=== PATIENT | female | born 1980 | race Caucasian/White ===

== ENCOUNTER → 2019-09-19 | Outpatient (CLI) | payer OTHER ==
--- NOTE | 2019-09-20 07:08 | CT ---
EXAMINATION TYPE: CT pelvis w con DATE OF EXAM: 09/19/2019 COMPARISON: None INDICATION: left inguinal hernia DLP: 1328 mGycm, Automated exposure control for dose reduction was used. CONTRAST: 100 mL of Isovue 300. Study performed with Oral Contrast TECHNIQUE: Axial images were obtained from above the diaphragm to the pubic rami in the axial plane a t 5 mm thick sections. Reconstructed images are reviewed on the computer in the coronal plane. FINDINGS: Limited CT sections are obtained through the lower abdomen. CT PELVIS: There is a large anterior abdominal wall hernia. This is in the midline and extends to the right. The anterior pelvic wall opening measures 7.3 cm. Multiple loops of contrast-filled small bowel loops ar e present without evidence of obstruction. This is not an inguinal hernia. Appendix: Normal as visualized. Urinary bladder: Normal. Genitourinary structures: Uterus and ovaries are unremarkable. Osseous structures: No suspicious lytic or sclerotic lesions. IMPRESSIONS: 1. Large central pelvic anterior abdominal wall hernia containing nonobstructed small bowel loops. 2. No inguinal hernia is present
== END | disposition home or self-care (01) ==
LOC: RADCTMAIN 14:55
PROVIDERS: ATTEND Surgery
DX: K43.9 Ventral hernia without obstruction or gangrene (principal); N81.4 Uterovaginal prolapse, unspecified
CPT/HCPCS: 72193; Q9967

== ENCOUNTER 2019-10-13 11:22 | Inpatient (IN) | payer OTHER ==
[2019-10-11 15:19] VITALS: BMI 44.7
[~2019-10-13 11:22] MED LIST: DEXAMETHASONE SOD PHOSPHATE 10 MG/ML 1 ML VIAL IV ONE; HEPARIN SODIUM,PORCINE 5,000 UNIT/ML 1 ML VIAL SQ ONE; HYDROmorphone 0.5 MG/0.5 ML SYRINGE IVP PRN; LACTATED RINGERS 1,000 ML IV SCH; LIDOCAINE 1% 20 ML VIAL (10MG/ML) FOR IV START INTRADERMA PRN; ONDANSETRON 4 MG/2 ML VIAL IVP ONE; SCOPOLAMINE 1.5MG/72HR PATCH TRANSDERM ONE; ceFAZolin 3 GM in SODIUM CHLORIDE 0.9% 100 ML IVPB ONE
[2019-10-13 12:52] LABS: HCT 41.1 % (34.0-46.0); HGB 13.9 gm/dL (11.4-16.0); MCH 28.8 pg (25.0-35.0); MCHC 33.9 g/dL (31.0-37.0); MCV 85.1 fL (80.0-100.0); Mean Platelet Volume 7.5; Platelet Count 320 k/uL (150-450); RBC 4.83 m/uL (3.80-5.40); RDW 12.7 % (11.5-15.5); WBC 8.9 k/uL (3.8-10.6)
[2019-10-13] MEDS ORDERED: MIDAZOLAM 2 MG/2 ML VIAL IV ONE (13:20)
[2019-10-13] MEDS ORDERED: fentaNYL (PF) 50 MCG/ML 2 ML AMP IV ONE (13:20)
--- NOTE | 2019-10-13 14:22 | P.GSHP ---
History of Present Illness H&P Date: 10/13/19 Chief Complaint: Incisional hernia Patient here today for elective repair large incisional hernia. She underwent in April. Following that developed a area of superficial dehiscence and subsequently after coughing felt a tearing sensation which resulted in a large bulge in the left lower abdomen. Mild pain at times. Increasing in size. No change in bowel habits. Recent CAT scan confirmed incisional hernia containing bowel loops. Past Medical History Past Medical History: GERD/Reflux History of Any Multi-Drug Resistant Organisms: None Reported Past Surgical History: Section, Cholecystectomy, Orthopedic Surgery Additional Past Surgical History / Comment(s): C SECTION X2 , ARTHROSCOPIC RIGHT KNEE , LEFT FINGER(POINTER) SURGERY Past Anesthesia/Blood Transfusion Reactions: Postoperative Nausea & Vomiting (PONV) Smoking Status: Current every day smoker - Past Family History Mother Family Medical History: Cancer Additional Family Medical History / Comment(s): CERVICAL CANCER Medications and Allergies Home Medications Medication Instructions Recorded Confirmed Type Escitalopram Oxalate [Lexapro] 10 mg PO DAILY 10/11/19 10/13/19 History Famotidine [Pepcid] 40 mg PO DAILY 10/11/19 10/13/19 History Ibuprofen 800 mg PO Q8H PRN 10/11/19 10/13/19 History Hydrocodone/Acetaminophen [[place] 1 tab PO Q6HR PRN 3 Days #10 tab 10/13/19 Rx 5-325] Allergies Allergy/AdvReac Type Severity Reaction Status Date / Time No Known Allergies Allergy Verified 10/13/19 12:18 Surgical - Exam Vital Signs Temp Pulse Resp BP Pulse Ox 96.7 F L 88 18 118/64 95 10/13/19 12:13 10/13/19 12:13 10/13/19 12:13 10/13/19 12:13 10/13/19 12:13 Physical exam: General: Well-developed, well-nourished HEENT: Normocephalic, sclerae nonicteric Abdomen: Nontender, nondistended, large partially incarcerated incisional hernia suprapubic slightly to the left of midline Extremities: No edema Neuro: Alert and oriented Results - Labs 10/13/19 12:35 Assessment and Plan (1) Incarcerated incisional hernia Narrative/Plan: Will proceed with repair incarcerated incisional hernia with mesh. Risks of bleeding, infection, recurrence, bladder and bowel injury, numbness, nerve injury were discussed with the patient. The patient understands and wishes to proceed. Current Visit: Yes Status: Acute Code(s): K43.0 - INCISIONAL HERNIA WITH OBSTRUCTION, WITHOUT GANGRENE SNOMED Code(s): 773153573
--- NOTE | 2019-10-13 14:33 | P.ANPRN ---
Procedure Note - Anesthesia - Nerve Block Performed Bilateral Transversus Abdominis Single Time Out Performed: Yes Date of Procedure: 10/13/19 Procedure Start Time: 13:24 Location of Patient: PreOp Indication: Acute Post-Operative Pain, Dx/Pain Location, Requested by Surgeon Sedation Type: Sedate with meaningful contact maintained Preparation: Sterile Prep, Sterile Dressing Catheter: None Needle Types: Pajunk Needle Gauge: 21 Ultrasound used to visualize needle placement: Yes Ultrasound used to observe medication spread: Yes Injectate: 0.5% Ropivacaine (see comment for volume) (20ml each side) Blood Aspirated: No Pain Paresthesia on Injection Noted: No Resistance on Injection: Normal Image Stored and Saved: Yes Events: Uneventful and Well Tolerated
[2019-10-13] MEDS ORDERED: GLYCOPYRROLATE 0.2 MG/ML 2 ML VIAL ONE (14:38)
[2019-10-13] MEDS ORDERED: MIDAZOLAM 2 MG/2 ML VIAL ONE (14:38)
[2019-10-13] MEDS ORDERED: PHENYLEPHRINE-0.9% NACL SYG 1 MG/10 ML SYRINGE ONE (14:38)
[2019-10-13] MEDS ORDERED: ROCURONIUM BROMIDE 10 MG/ML 10 ML VIAL IV ONE (14:38)
[2019-10-13] MEDS ORDERED: ONDANSETRON 4 MG/2 ML VIAL ONE (14:38)
[2019-10-13] MEDS ORDERED: LIDOCAINE 1% INJ 10MG/ML (20 ML MDV) ONE (14:38)
[2019-10-13] MEDS ORDERED: fentaNYL (PF) 50 MCG/ML 2 ML AMP ONE (14:38)
[2019-10-13] MEDS ORDERED: ROPIVACAINE 5 MG/ML 30 ML VIAL ONE (14:38)
[2019-10-13] MEDS ORDERED: SUCCINYLCHOLINE CHLORIDE 100 MG/5 ML SYR IV ONE (14:38)
[2019-10-13] MEDS ORDERED: LIDOCAINE 2%-EPI 1:100,000 20 ML VIAL ONE (14:38)
[2019-10-13] MEDS ORDERED: NEOSTIGMINE 1 MG/ML 10 ML VIAL ONE (14:38)
[2019-10-13] MEDS ORDERED: PROPOFOL 10 MG/ML 20 ML VIAL IV ONE (14:38)
[2019-10-13] MEDS ORDERED: LACTATED RINGERS 1,000 ML IV ONE (15:30)
[2019-10-13] MEDS ORDERED: NALOXONE 0.4 MG/ML 1 ML VIAL IV PRN (16:49)
[2019-10-13] MEDS ORDERED: HYDROmorphone 1 MG/ML 1 ML SYRINGE IVP PRN (16:49)
[2019-10-13] MEDS ORDERED: METOCLOPRAMIDE 5 MG/ML 2 ML VIAL IVP PRN (16:49)
[2019-10-13] MEDS ORDERED: ONDANSETRON 4 MG/2 ML VIAL IVP PRN (16:49)
--- NOTE | 2019-10-13 16:56 | P.OP ---
Date of Procedure: 10/13/19 Procedure(s) Performed: PREOPERATIVE DIAGNOSIS: Incarcerated incisional hernia POSTOPERATIVE DIAGNOSIS: Same PROCEDURE: Incarcerated incisional hernia with mesh, partial omentectomy SURGEON: Clary EBL: 50 Fernandez ANESTHESIA: Gen. COMPLICATIONS: None OPERATIVE PROCEDURE: Patient placed on the operating table in the supine position. Preoperative Munoz catheter was placed. Abdomen was prepped and draped in usual sterile fashion. A lower midline incision was made using the scalpel. Dissection through the subcutaneous tissues took place using electrocautery. A large hernia was identified. The hernia sac was carefully dissected down to the level of the fascia where it was excised. There was omentum present within the hernia sac that was excised. This was a large portion of omentum. The entirety of the previous rectus fascial opening was the hernia itself. I dissected the subfascial beneath the rectus fascia superiorly and inferiorly and laterally. Once I had adequate size the 17 cm x 13 cm Ventrio mesh was utilized. This was placed beneath the fascia and sutured in place using trans-fascial 0 Ethibond sutures. Prior to doing so the rectus muscle itself was reapproximated in the midline with a running 2-0 Vicryl suture. Once the mesh was secured the secure strap was also utilized ci rcumferentially. The fascia was then reapproximated horizontally using [id number] 0 Ethibond sutures. The area was irrigated. No bleeding was seen. A drain was placed anterior to the fascial closure exiting through the right lower quadrant. This was sutured to the skin using a 3-0 silk stitch. The subcutaneous tissues were closed using 3-0 Vicryl sutures. The skin was closed using guilherme. Sterile dressings were applied. DISPOSITION: Stable to recovery room
[2019-10-13] MEDS ORDERED: HYDROmorphone 1 MG/ML 1 ML SYRINGE IVP ONE ×4 (18:00→18:34)
[2019-10-13] MEDS: D5-0.45% NACL WITH KCL 20MEQ/L 1,000 ML IV SCH (19:10)
[2019-10-13] MEDS: HYDROcodone/APAP 5-325MG 1 EACH TAB PO PRN (21:32)
[2019-10-13] MEDS: DOCUSATE 100 MG CAP PO SCH (22:21)
[2019-10-14] MEDS: HEPARIN SODIUM,PORCINE 5,000 UNIT/ML 1 ML VIAL SQ SCH ×4 (00:01→23:57)
--- NOTE | 2019-10-14 00:35 | P.CONS ---
History of Present Illness - Reason for Consult Consult date: 10/13/19 post operative care, tachycardia Requesting physician: Avi Means - Chief Complaint incarcerated incisional hernia - History of Present Illness 39-year-old female with history of depression Comes in for surgical repair of incarcerated incisional hernia. Patient jim ated procedure well minutes was consult postoperatively for postoperative medical care and tachycardia Patient currently denies any chest pain or trouble breathing denies any dizziness or lightheadedness denies any history of tachycardia. She reports some lower abdominal pain at site of surgery however well controlled with Raymond's. She currently has a Munoz catheter in place with clear yellow urine. She did not pass bowel movement since surgery. Tolerating liquid diet. Denies any nausea vomiting. Denies any fevers or chills. Patient reports history of depression taking Lexapro. She reports that she feels overwhelmed taking care of 2 kids and her boyfriend's demented grandma. Review of Systems Pertinent positives as noted in HPI. All other systems were reviewed and are negative Past Medical History Past Medical History: GERD/Reflux History of Any Multi-Drug Resistant Organisms: None Reported Past Surgical History: Section, Cholecystectomy, Orthopedic Surgery Additional Past Surgical History / Comment(s): C SECTION X2 , ARTHROSCOPIC RIGHT KNEE , LEFT FINGER(POINTER) SURGERY Past Anesthesia/Blood Transfusion Reactions: Postoperative Nausea & Vomiting (PONV) Past Psychological History: Depression Smoking Status: Current every day smoker Past Alcohol Use History: Occasional Additional Past Alcohol Use History / Comment(s): STARTED SMOKING AT AGE 15 QUIT ON AND OFF SMOKES 1/2PPD Past Drug Use History: Marijuana Additional Drug Use History / Comment(s): occasional use of marijuana. - Past Family History Mother Family Medical History: Cancer Additional Family Medical History / Comment(s): CERVICAL CANCER Medications and Allergies Home Medications Medication Instructions Recorded Confirmed Type Escitalopram Oxalate [Lexapro] 10 mg PO DAILY 10/11/19 10/13/19 History Famotidine [Pepcid] 40 mg PO DAILY 10/11/19 10/13/19 History Ibuprofen 800 mg PO Q8H PRN 10/11/19 10/13/19 History Hydrocodone/Acetaminophen [[place] 1 tab PO Q6HR PRN 3 Days #10 tab 10/13/19 Rx 5-325] Allergies Allergy/AdvReac Type Severity Reaction Status Date / Time No Known Allergies Allergy Verified 10/13/19 12:18 Physical Exam Vitals: Vital Signs Temp Pulse Resp BP Pulse Ox 10/13/19 19:45 93 118/62 96 10/13/19 19:30 99 118/71 95 10/13/19 19:15 106 H 121/76 95 10/13/19 19:00 97.7 F 92 16 122/81 95 10/13/19 18:30 94 16 128/64 97 10/13/19 18:15 95 16 123/67 98 10/13/19 18:06 143/65 10/13/19 18:00 97 16 97 10/13/19 17:45 92 14 131/64 10/13/19 17:30 86 14 122/59 98 10/13/19 17:15 86 14 133/62 100 10/13/19 17:07 96.8 F L 88 16 133/61 99 10/13/19 15:15 86 16 119/55 100 10/13/19 13:35 94 16 108/51 96 10/13/19 12:13 96.7 F L 88 18 118/64 95 Intake and Output 10/13/19 10/13/19 10/13/19 06:59 14:59 22:59 Intake Total 1000 1000 Output Total 210 Balance 1000 790 Intake: IV 1000 1000 Output: Urine 110 Estimated Blood Loss 100 Other: Weight 120.7 kg 120.7 kg Constitutional: No acute distress, conversant, pleasant, obese Eyes: Anicteric sclerae, moist conjunctiva, no lid-lag Pupils equal round reactive to light ENMT: NC/AT Oropharynx clear, no erythema, exudates Neck: Supple, FROM, no masses, or JVD No carotid bruits No thyromegaly Lungs: Clear to auscultation Clear to percussion Normal respiratory effort, no accessory muscle use Cardiovascular: Heart regular in rate and rhythm, No murmurs, gallops, or rubs No peripheral edema Abdominal: Patient has abdominal binder in place postoperatively looks dry. Abdomen is soft. Unable to assess otherwise due to abdominal binder in place. Patient has OCHOA drain in place and Munoz catheter in place urine is unremarkable Skin: Normal temperature, tone, texture, turgor No induration No subcutaneous nodules No rash, lesions No ulcers Extremities: No digital cyanosis No clubbing Pedal pulses intact and symmetrical Radial pulses intact and symmetrical No calf tenderness Psychiatric: Alert and oriented to person, place and time Appropriate affect fair judgement Neuro Muscles Strength 5/5 in all 4 extremities Sensation to light touch grossly present throughout Cranial nerves II-XII grossly intact No focal sensory deficits Lymphatics: no palpable cervical or supraclavicular , or inguinal lymph nodes Results CBC & Chem 7: 10/13/19 12:35 Assessment and Plan Assessment: 39-year-old female with history of depression, presented for surgical repair of incarcerated incisional hernia tolerated procedure well medicine was consulted postoperatively for postoperative medical management and tachycardia Plan: Tachycardia Most likely reactive postoperatively and pain Check EKG I discussed with hydration Monitor closely Currently asymptomatic Incarcerated incisional hernia status post surgical repair postoperative day 0 Management per general surgery Pain control Depression resume home meds Obesity counseled for weight loss and lifestyle modification Nicotine dependence Counseled to quit smoking Nicotine replacement therapy offered Follow-up renal function and CBC in the morning Thank you for allowing us to participate in the care of this patient. Do not hesitate to contact us with questions. Someone can be reached from the [facility] hospitalist group at all hours of the day at [phone].
[2019-10-14] MEDS: HYDROcodone/APAP 5-325MG 1 EACH TAB PO PRN ×6 (01:11→22:24)
[2019-10-14] MEDS: D5-0.45% NACL WITH KCL 20MEQ/L 1,000 ML IV SCH ×3 (03:37→22:24)
[2019-10-14 07:19] LABS: Basophils # (A) 0.1 k/uL (0-0.2); Basophils % (A) 1 %; Eosinophils # (A) 0.1 k/uL (0-0.7); Eosinophils % (A) 1 %; HCT 39.5 % (34.0-46.0); HGB 12.9 gm/dL (11.4-16.0); Lymphocytes # (A) 0.9 k/uL (1.0-4.8); Lymphocytes % (A) 8 %; MCH 28.5 pg (25.0-35.0); MCHC 32.6 g/dL (31.0-37.0); MCV 87.5 fL (80.0-100.0); Mean Platelet Volume 7.5; Monocytes # (A) 0.5 k/uL (0-1.0); Monocytes % (A) 4 %; Neutrophils # (A) 10.7 k/uL (1.3-7.7); Neutrophils % (A) 87 %; Platelet Count 269 k/uL (150-450); RBC 4.52 m/uL (3.80-5.40); RDW 12.9 % (11.5-15.5); WBC 12.3 k/uL (3.8-10.6)
[2019-10-14 07:34] LABS: African American GFR (CKD) >90 (>60 ml/min/1.73 sqM); Anion Gap 6 mmol/L; Blood Urea Nitrogen 10 mg/dL (7-17); Carbon Dioxide 27 mmol/L (22-30); Chloride 101 mmol/L (98-107); Glucose 123 mg/dL (74-99); Non-African American GFR(CKD) >90 (>60 ml/min/1.73 sqM); Sodium 134 mmol/L (137-145)
[2019-10-14 07:47] LABS: Potassium 4.3 mmol/L (3.5-5.1)
--- NOTE | 2019-10-14 08:26 | P.PN ---
Subjective Chart was reviewed patient was seen and examined. Patient is postoperative day after hernia surgery. Postoperative course has been stable. Patient has no acute complications. It was noted that postoperatively she has been slightly tachycardic in the range 90-110. EKG showed sinus tachycardia. Patient has no significant medical history or cardiac history. She takes Lexapro met home. She has been on this medications continuously. She denies any usage of drugs or alcohol. Objective - Vital Signs Vital signs: Vital Signs Temp 97.8 F 10/14/19 04:39 Pulse 98 10/14/19 04:39 Resp 18 10/14/19 04:39 BP 122/80 10/14/19 04:39 Pulse Ox 97 10/14/19 04:39 Intake & Output 10/13/19 10/14/19 10/14/19 18:59 06:59 18:59 Intake Total 2000 2480 Output Total 210 2425 Balance 1790 55 Weight 120.7 kg 120.7 kg Intake: IV 2000 Intake, IV Titration 1000 Amount D5-0.45% NaCl with KCl 1000 20Meq/l 1,000 ml @ 100 mls/hr IV .Q10H [facility] Rx#: [id number] Oral 1480 Output: Drainage 50 Abdomen 50 Urine 110 2375 Estimated Blood Loss 100 Other: Voiding Method Indwelling Catheter - Exam Vital Signs: I have reviewed the vital signs. GENERAL: no apparent distress, cooperative Eyes: PERRL, extraoculry movements intact, clear conjunctiva Head: : Atraumatic external nose and ears, oropharyngeal mucosa is moist without lesions or exudates Neck: Symmetric, trachea midline, No thyromegaly, no masses or neck vain pulsation, no neck rigidity CVS: Tachycardic, regular, in the range of 90-100. S1 and S2 present did not detect any significant murmurs rubs or gallops. RESP: Unlabored respiratory effort. Clear to auscultation bilaterally. Abdomen: Abdominal brace present. Abdomen is soft and nontender Musculoskeletal: Extremities w/o deformity, No cyanosis or clubbing, no joint swelling Skin: Warm, Dry. No rashes or lesions Neuro: lathing supervisor II-XII grossly intact, motor strenght 5/5 i upper and lower extremities, no clonus, patellar DTRs 2+ and sympetrical Psych: Awake, Alert, & Oriented (AAO) x3 Appropriate mood and affect - Labs CBC & Chem 7: 10/14/19 06:57 10/14/19 06:57 Labs: Abnormal Lab Results - Last 24 Hours (Table) 10/14/19 10/14/19 Range/Units 06:57 06:57 WBC 12.3 H (3.8-10.6) k/uL Neutrophils # 10.7 H (1.3-7.7) k/uL Lymphocytes # 0.9 L (1.0-4.8) k/uL Sodium 134 L (137-145) mmol/L Glucose 123 H (74-99) mg/dL Calcium 8.0 L (8.4-10.2) mg/dL Assessment and Plan Plan: 1. Sinus tachycardia 2. Hernia repair postoperative day 2 3. Depression 4. Obesity This point of time patient is still within the timeframe postoperatively where sinus tachycardia may be consider appropriate due to catecholamine surge. She is mostly asymptomatic and does not have any known cardiac history. She denies any history of substance abuse or alcohol and her Lexapro has been continued hence we'll check the patient has any withdrawal symptoms. At this point of time I will continue to monitor patient but if her tachycardia persists we may consider to be getting out of appropriate range and will conduct further evaluation and treatment. I will add TSH check for tomorrow.
[2019-10-14] MEDS: FAMOTIDINE 20 MG TAB PO SCH (09:34)
[2019-10-14] MEDS: PANTOPRAZOLE 40 MG/10 ML VIAL IV SCH (09:34)
[2019-10-14] MEDS: DOCUSATE 100 MG CAP PO SCH ×2 (09:38→20:10)
[2019-10-14] MEDS: ESCITALOPRAM 10 MG TAB PO SCH (09:39)
--- NOTE | 2019-10-14 11:50 | P.PN ---
Progress Note - Text Progress Note Date: 10/14/19 Patient's resting comfortably in bed. She still has some complaints of incisional pain. She has not been out of bed yet. On exam her vital signs are stable. Her abdomen soft. Incision is clean dry tach. Status post repair of a large incisional hernia. Patient will remain in the hospital today. Discharge home Wednesday.
[2019-10-15] MEDS: HYDROcodone/APAP 5-325MG 1 EACH TAB PO PRN ×6 (02:13→22:53)
[2019-10-15] MEDS: D5-0.45% NACL WITH KCL 20MEQ/L 1,000 ML IV SCH ×2 (07:36→14:57)
[2019-10-15] MEDS: PANTOPRAZOLE 40 MG/10 ML VIAL IV SCH (07:39)
[2019-10-15] MEDS: ESCITALOPRAM 10 MG TAB PO SCH (07:40)
[2019-10-15] MEDS: FAMOTIDINE 20 MG TAB PO SCH (07:40)
[2019-10-15] MEDS: DOCUSATE 100 MG CAP PO SCH ×2 (07:40→20:06)
[2019-10-15] MEDS: HEPARIN SODIUM,PORCINE 5,000 UNIT/ML 1 ML VIAL SQ SCH ×3 (07:40→23:06)
[2019-10-15 09:27] LABS: African American GFR (CKD) >90 (>60 ml/min/1.73 sqM); Anion Gap 7 mmol/L; Blood Urea Nitrogen 9 mg/dL (7-17); Calcium 7.8 mg/dL (8.4-10.2); Carbon Dioxide 26 mmol/L (22-30); Chloride 102 mmol/L (98-107); Glucose 121 mg/dL (74-99); Magnesium 1.9 mg/dL (1.6-2.3); Non-African American GFR(CKD) >90 (>60 ml/min/1.73 sqM); Potassium 3.9 mmol/L (3.5-5.1); Sodium 135 mmol/L (137-145)
--- NOTE | 2019-10-15 11:32 | P.PN ---
Subjective C patient is doing better today. She has some mild pain and discomfort in the incision site. Otherwise no new complaints. She has been ambulatory tolerating that well. Her tachycardia much improved and as per chart her heart has been in 80s and 90s overnight. Objective - Vital Signs Vital signs: Vital Signs Temp 98.0 F 10/15/19 08:54 Pulse 94 10/15/19 08:54 Resp 20 10/15/19 08:54 BP 118/76 10/15/19 08:54 Pulse Ox 96 10/15/19 08:54 Intake & Output 10/14/19 10/15/19 10/15/19 18:59 06:59 18:59 Intake Total 1999 Output Total 1260 55 Balance -1260 1945 Intake: Intake, IV Titration 1000 Amount D5-0.45% NaCl with KCl 1000 20Meq/l 1,000 ml @ 100 mls/hr IV .Q10H [id number] Rx#: [id number] Oral 1000 Output: Drainage 60 55 Abdomen 60 55 Urine 1200 Other: Voiding Method Toilet # Voids 1 1 - Exam Vital Signs: I have reviewed the vital signs. GENERAL: no apparent distress, cooperative Eyes: PERRL, extraoculry movements intact, clear conjunctiva Head: : Atraumatic external nose and ears, oropharyngeal mucosa is moist without lesions or exudates Neck: Symmetric, trachea midline, No thyromegaly, no masses or neck vain pulsation, no neck rigidity CVS: , regular, in the range of 90-100. S1 and S2 present did not detect any significant murmurs rubs or gallops. RESP: Unlabored respiratory effort. Clear to auscultation bilaterally. Abdomen: Incision site has a bandage over no drainage or tenderness Musculoskeletal: Extremities w/o deformity, No cyanosis or clubbing, no joint swelling - Labs CBC & Chem 7: 10/14/19 06:57 10/15/19 08:33 Labs: Abnormal Lab Results - Last 24 Hours (Table) 10/15/19 Range/Units 08:33 Sodium 135 L (137-145) mmol/L Glucose 121 H (74-99) mg/dL Calcium 7.8 L (8.4-10.2) mg/dL Assessment and Plan Plan: 1. Sinus tachycardia 2. Hernia repair postoperative day 2 3. Depression 4. Obesity at this point patient's tachycardia has been improving. Heart rate has been in appropriate range. We will continue to monitor
[2019-10-16] MEDS: D5-0.45% NACL WITH KCL 20MEQ/L 1,000 ML IV SCH ×2 (00:04→16:13)
[2019-10-16] MEDS: HYDROcodone/APAP 5-325MG 1 EACH TAB PO PRN ×4 (04:17→16:18)
[2019-10-16] MEDS: PANTOPRAZOLE 40 MG/10 ML VIAL IV SCH (08:08)
[2019-10-16] MEDS: HEPARIN SODIUM,PORCINE 5,000 UNIT/ML 1 ML VIAL SQ SCH ×2 (08:14→16:21)
[2019-10-16] MEDS: ESCITALOPRAM 10 MG TAB PO SCH (08:15)
[2019-10-16] MEDS: DOCUSATE 100 MG CAP PO SCH (08:15)
[2019-10-16] MEDS: FAMOTIDINE 20 MG TAB PO SCH (08:17)
--- NOTE | 2019-10-16 10:59 | P.DS ---
<Katrina Schultz - Last Filed: 10/16/19 10:57> Providers Expected date of discharge: 10/16/19 Hospital Course: 39-year-old female who underwent incarcerated incisional hernia repair with mesh and partial omentectomy with Dr. Means on 10/13/2019. Patient's edema postoperatively without any immediate complications. Pain is controlled on oral medications. She is tolerating diet without nausea or vomiting. Vital signs have been stable. OCHOA drain to right lower quadrant with serosanguineous drainage. She is stable for discharge home today. Please see EMR for further hospital course details. Discharge Diagnosis 1. S/P repair of incarcerated incisional hernia with mesh and partial omentectomy Nurse practitioner note has been reviewed by physician. Signing provider agrees with the documented findings, assessment, and plan of care. Patient Condition at Discharge: Stable Plan - Discharge Summary Discharge Rx Participant: Yes New Discharge Prescriptions: New Hydrocodone/Acetaminophen [[place] 5-325] 1 tab PO Q6HR PRN 3 Days #10 tab PRN Reason: Pain Docusate [Colace] 100 mg PO BID #30 capsule No Action Ibuprofen 800 mg PO Q8H PRN PRN Reason: Pain Escitalopram Oxalate [Lexapro] 10 mg PO DAILY Famotidine [Pepcid] 40 mg PO DAILY Discharge Medication List Escitalopram Oxalate [Lexapro] 10 mg PO DAILY 10/11/19 [History] Famotidine [Pepcid] 40 mg PO DAILY 10/11/19 [History] Ibuprofen 800 mg PO Q8H PRN 10/11/19 [History] Hydrocodone/Acetaminophen [[place] 5-325] 1 tab PO Q6HR PRN 3 Days #10 tab 10/13/19 [Rx] Docusate [Colace] 100 mg PO BID #30 capsule 10/16/19 [Rx] Follow up Appointment(s)/Referral(s): Avi Means MD [Medical Doctor] - 10/19/19 10:00 am Activity/Diet/Wound Care/Special Instructions: No driving while taking [place]berg No lifting over 10 pounds You may shower. No soaking or tub baths Very light activity until you are reevaluated at your follow up appointment with your surgeon Keep a log of OCHOA drain output and bring with you to your follow up appointment Call your Dr with any fevers, increased pain not relieved with pain meds, increased redness or discolored drainage from your incision site ( on dressing) sudden increase or concerning drainage from your OCHOA drain or any concerns. Continue to use your incentive spirometery at home as well as wearing your abdominal binder. Last Newberg taken at <Avi Means - Last Filed: 10/16/19 16:38> Providers Date of admission: 10/14/19 14:58 Attending physician: Avi Means Consults: 10/13/19 16:49 Consult Physician Routine Consulting Provider: Brittney Arauz Consult Reason/Comments: Medical management Do you want consulting provider notified?: Yes Primary care physician: Kings Ricks - Discharge Diagnosis(es) (1) Incarcerated incisional hernia Current Visit: Yes Status: Acute Hospital Course: As above. Patient doing well. We'll discharge this evening. Follow-up later this week.
[2019-10-16 16:12] VITALS: BP 119/62; PULSE 90; RESP 20; TEMP 98.8
== END 2019-10-16 16:54 | disposition home or self-care (01) | DRG 354 ==
LOC: OR 11:22 → 6PED 18:22 → OR 22:27 → 6PED 22:46 → OBSVTOIN 10-14 14:58
PROVIDERS: ADMIT Surgery; ATTEND Surgery
DX: K43.0 Incisional hernia with obstruction, without gangrene (principal); Z68.42 Body mass index [BMI] 45.0-49.9, adult; E66.9 Obesity, unspecified; F17.210 Nicotine dependence, cigarettes, uncomplicated; F32.9 Major depressive disorder, single episode, unspecified; R00.0 Tachycardia, unspecified; Z71.6 Tobacco abuse counseling; K21.9 Gastro-esophageal reflux disease without esophagitis; Z79.899 Other long term (current) drug therapy; Z71.3 Dietary counseling and surveillance; Z90.49 Acquired absence of other specified parts of digestive tract; Z98.891 History of uterine scar from previous surgery; Z80.49 Family history of malignant neoplasm of other genital organs
CPT/HCPCS: 64488; 80048; 81025; 83735; 84443; 85025; 85027; 88302; 93005

== ENCOUNTER 2019-11-02 11:37 | Inpatient (IN) | payer OTHER ==
[2019-11-02] MEDS ORDERED: ACETAMINOPHEN TAB 325 MG TAB PO PRN (12:25)
[2019-11-02] MEDS ORDERED: NALOXONE 0.4 MG/ML 1 ML VIAL IV PRN (12:27)
[2019-11-02] MEDS ORDERED: HYDROmorphone 1 MG/ML 1 ML SYRINGE IVP PRN (12:27)
[2019-11-02 13:39] LABS: Glucose,Whole Blood 100 mg/dL (75-99)
[2019-11-02] MEDS ORDERED: LACTATED RINGERS 1,000 ML IV ONE ×2 (13:40→15:42)
[2019-11-02] MEDS ORDERED: LIDOCAINE 1% (10MG/ML) FOR IV START INTRADERMA ONE ×2 (13:41)
[2019-11-02] MEDS: ONDANSETRON 4 MG/2 ML VIAL IVP PRN ×2 (13:45→16:55)
[2019-11-02] MEDS: HEPARIN SODIUM,PORCINE 5,000 UNIT/ML 1 ML VIAL SQ SCH ×2 (13:45→15:50)
[2019-11-02] MEDS ORDERED: DEXAMETHASONE SOD PHOSPHATE 10 MG/ML 1 ML VIAL IV ONE (13:45)
[2019-11-02 13:59] LABS: Basophils % (A) 0 %; Eosinophils # (A) 0.3 k/uL (0-0.7); Eosinophils % (A) 2 %; HCT 37.5 % (34.0-46.0); HGB 12.6 gm/dL (11.4-16.0); Lymphocytes # (A) 0.6 k/uL (1.0-4.8); Lymphocytes % (A) 4 %; MCH 28.5 pg (25.0-35.0); MCHC 33.6 g/dL (31.0-37.0); MCV 84.8 fL (80.0-100.0); Mean Platelet Volume 7.4; Monocytes # (A) 0.3 k/uL (0-1.0); Monocytes % (A) 2 %; Neutrophils # (A) 13.4 k/uL (1.3-7.7); Neutrophils % (A) 91 %; Platelet Count 318 k/uL (150-450); RBC 4.42 m/uL (3.80-5.40); WBC 14.7 k/uL (3.8-10.6)
--- NOTE | 2019-11-02 14:00 | P.HPADDEND ---
H&P Addendum H&P Addendum Date: 11/02/19 Please refer to dictation of H&P from office visit earlier today.
[2019-11-02 14:10] LABS: ALT 23 U/L (4-34); AST 20 U/L (14-36); African American GFR (CKD) >90 (>60 ml/min/1.73 sqM); Albumin 3.1 g/dL (3.5-5.0); Alkaline Phosphatase 116 U/L (38-126); Anion Gap 8 mmol/L; Blood Urea Nitrogen 16 mg/dL (7-17); Calcium 8.1 mg/dL (8.4-10.2); Carbon Dioxide 28 mmol/L (22-30); Chloride 101 mmol/L (98-107); Glucose 99 mg/dL (74-99); Non-African American GFR(CKD) >90 (>60 ml/min/1.73 sqM); Potassium 3.6 mmol/L (3.5-5.1); Sodium 137 mmol/L (137-145); Total Bilirubin 0.3 mg/dL (0.2-1.3)
[2019-11-02 14:20] LABS: HCG,Qualitative Serum Not Detected
[2019-11-02] MEDS ORDERED: HYDROmorphone (PF) 1 MG/ML ONE (14:49)
[2019-11-02] MEDS ORDERED: MIDAZOLAM 2 MG/2 ML VIAL ONE (14:49)
[2019-11-02] MEDS ORDERED: PHENYLEPHRINE-0.9% NACL SYG 1 MG/10 ML SYRINGE ONE (14:49)
[2019-11-02] MEDS ORDERED: fentaNYL (PF) 50 MCG/ML 2 ML AMP ONE (14:49)
[2019-11-02] MEDS ORDERED: ROCURONIUM BROMIDE 10 MG/ML 5 ML VIAL IV ONE (14:49)
[2019-11-02] MEDS ORDERED: SUCCINYLCHOLINE CHLORIDE 100 MG/5 ML SYR IV ONE (14:49)
[2019-11-02] MEDS ORDERED: PROPOFOL 10 MG/ML 20 ML VIAL IV ONE (14:49)
[2019-11-02] MEDS ORDERED: KETAMINE 10 MG/ML 20 ML VIAL ONE (14:49)
[2019-11-02] MEDS ORDERED: GLYCOPYRROLATE 0.2 MG/ML 2 ML VIAL ONE (14:49)
[2019-11-02] MEDS ORDERED: NEOSTIGMINE 1 MG/ML 10 ML VIAL ONE (14:49)
[2019-11-02] MEDS ORDERED: LIDOCAINE 1% INJ 10MG/ML (20 ML MDV) ONE (14:49)
[2019-11-02] MEDS ORDERED: SODIUM CHLORIDE 0.9% 50 ML with ceFAZolin 2,000 MG IV ONE ×2 (15:15)
[2019-11-02] MEDS: SODIUM CHLORIDE 0.9% 1,000 ML IV SCH (15:50)
[2019-11-02] MEDS: KETOROLAC 30 MG/ML 1 ML VIAL IVP SCH (17:07)
--- NOTE | 2019-11-02 17:09 | P.OP ---
Date of Procedure: 11/02/19 Procedure(s) Performed: PREOPERATIVE DIAGNOSIS: Postoperative abdominal wall wound infection POSTOPERATIVE DIAGNOSIS: Same PROCEDURE: Incision and drainage postoperative lower midline incision with removal subfascial prosthetic mesh SURGEON: Clary EBL: Charlie Presley ANESTHESIA: Gen. COMPLICATIONS: None OPERATIVE PROCEDURE: Patient place never table in the supine position. The patient's drain and guilherme were all removed. The abdomen was prepped and draped sterilely. The lower midline incision was re-incised using a scalpel. Blunt dissection took place through the subcutaneous fat until the cavity was encountered just above the level of the fascia. A purulent collection was identified within the cavity. This was cultured and evacuated. The mesh that was placed beneath the fascia was visible through a few small defects in the thinned out fascia particularly in the right lower inferior location. The mesh certainly seem to be involved in the postoperative infection and required excision. The fascia had previously been closed horizontally using 0 Ethibond sutures. These were removed. The mesh was able to be removed and in doing so we removed the Ethibond transfer fascial sutures holding it in place. The mesh was only partially incorporated and was able to be removed relatively easily. The fascia was then reapproximated using [id number] #1 Vicryl sutures. The area beneath the fascia and above the fascia were copiously irrigated with saline. No bleeding or further purulence was seen. It should be noted that beneath the fascia we were able to visualize the rectus muscle. I did not see any bowel in that region nor any fistulous communications. A wound VAC was then placed with 2 pieces of large foam dressing placed on top of the fascial closure. The wound VAC was then connected. At the end of this procedure the sponge needle and ensure counts were correct. DISPOSITION: Stable to recovery room
[2019-11-02] MEDS: D5-0.45% NACL WITH KCL 20MEQ/L 1,000 ML IV SCH (17:40)
[2019-11-02] MEDS: HYDROmorphone 1 MG/ML 1 ML SYRINGE IVP PRN (17:58)
[2019-11-02] MEDS: DOCUSATE 100 MG CAP PO SCH (20:45)
[2019-11-02] MEDS: diphenhydrAMINE 25 MG CAP PO SCH (20:45)
[2019-11-03] MEDS: HEPARIN SODIUM,PORCINE 5,000 UNIT/ML 1 ML VIAL SQ SCH ×3 (00:11→15:38)
[2019-11-03] MEDS: KETOROLAC 30 MG/ML 1 ML VIAL IVP SCH ×4 (00:11→17:16)
[2019-11-03] MEDS: D5-0.45% NACL WITH KCL 20MEQ/L 1,000 ML IV SCH ×2 (03:59→14:20)
[2019-11-03] MEDS: SODIUM CHLORIDE 0.9% 1,000 ML IV SCH ×3 (04:04→23:34)
[2019-11-03 07:08] LABS: Basophils % (A) 0 %; Eosinophils % (A) 0 %; HCT 32.9 % (34.0-46.0); HGB 10.8 gm/dL (11.4-16.0); Lymphocytes % (A) 10 %; MCH 28.5 pg (25.0-35.0); MCHC 32.8 g/dL (31.0-37.0); MCV 86.7 fL (80.0-100.0); Mean Platelet Volume 7.4; Monocytes # (A) 0.4 k/uL (0-1.0); Monocytes % (A) 4 %; Neutrophils # (A) 8.6 k/uL (1.3-7.7); Neutrophils % (A) 85 %; Platelet Count 284 k/uL (150-450); RBC 3.79 m/uL (3.80-5.40); WBC 10.1 k/uL (3.8-10.6)
[2019-11-03 07:23] LABS: ALT 47 U/L (4-34); AST 36 U/L (14-36); African American GFR (CKD) >90 (>60 ml/min/1.73 sqM); Albumin 2.5 g/dL (3.5-5.0); Alkaline Phosphatase 130 U/L (38-126); Anion Gap 5 mmol/L; Blood Urea Nitrogen 17 mg/dL (7-17); Calcium 7.5 mg/dL (8.4-10.2); Carbon Dioxide 29 mmol/L (22-30); Chloride 102 mmol/L (98-107); Glucose 105 mg/dL (74-99); Non-African American GFR(CKD) >90 (>60 ml/min/1.73 sqM); Potassium 3.7 mmol/L (3.5-5.1); Sodium 136 mmol/L (137-145); Total Bilirubin 0.2 mg/dL (0.2-1.3); Total Protein 5.4 g/dL (6.3-8.2)
[2019-11-03] MEDS: DOCUSATE 100 MG CAP PO SCH ×2 (07:30→22:19)
[2019-11-03] MEDS: predniSONE 50 MG TAB PO SCH (07:30)
[2019-11-03] MEDS: diphenhydrAMINE 25 MG CAP PO SCH ×3 (07:30→22:19)
[2019-11-03] MEDS: ESCITALOPRAM 10 MG TAB PO SCH (07:30)
[2019-11-03] MEDS: HYDROcodone/APAP 5-325MG 1 EACH TAB PO PRN (07:35)
[2019-11-03] MEDS ORDERED: PANTOPRAZOLE 40 MG/10 ML VIAL IVP SCH (09:00)
[2019-11-03] MEDS ORDERED: FAMOTIDINE 20 MG TAB PO SCH (09:00)
--- NOTE | 2019-11-03 10:37 | P.CONS ---
History of Present Illness - Reason for Consult Consult date: 11/02/19 Consult for medical management Requesting physician: Avi Means - Chief Complaint Consulted for medical management - History of Present Illness The patient is a 39-year-old obese female with a past medical history of GERD and fairly recent incarcerated incisional hernia repair with mesh performed 10/13/19 that is admitted to the general surgery service after being seen in follow-up clinic earlier today by Dr. Means. The patient reported that should previously seen him a week ago and was doing well postoperatively, over the last several days the patient has had issues with fevers, on Wednesday she was also be febrile at home and proceeded to take an dose of ibuprofen, she later that evening began having itchiness of her hand and hives around her neck and felt like her throat was closing over. She was apparently admitted inpatient for ALLERGIC reaction possible angioedema and was given Benadryl systemic steroids and Pepcid, she reports that she was discharged on Wednesday and continues on oral prednisone. The patient was seen in follow-up today and was subsequently admitted due to suspected postoperative abdominal wall wound infection and is postop day #0 after having incision and drainage of the postoperative lower midline incision with removal of the subfascial prosthetic mesh. Patient reports to have had a bowel movement prior to surgery this morning, denies any gas, or bowel movement since. She has a wound VAC in place and reports that her pain is well- controlled. Review of Systems Pertinent positives per HPI all other review of systems are otherwise negative Past Medical History Past Medical History: GERD/Reflux Additional Past Medical History / Comment(s): HAD A POSSIBLE QUESTIONABLE ALLERGIC RXN ON MONDAY 10/30- HAD A FEVER, TOOK A MOTRIN, STARTED FEELING SOB. USED INHALER. THEN STARTED "FEELING LIKE THROAT CLOSED UP", ITCHING IN HANDS UNCONTROLLABLE, AND BROKE OUT IN RASH. WAS SENT TO [facility] FOR RX. NOT SURE WHAT CAUSED THE RXN. PT STATED "HAS HAD MOTRIN 800 MG BEFORE W/O PROBLEMS." History of Any Multi-Drug Resistant Organisms: None Reported Past Surgical History: Section, Cholecystectomy, Hernia Repair, Orthopedic Surgery Additional Past Surgical History / Comment(s): C SECTION X2 , ARTHROSCOPIC RIGHT KNEE , LEFT FINGER(POINTER) SURGERY. VENTRAL HERNIA REPAIR 10/13/19 STAYED UNTIL THE FOLLOWING WEDNESDAY AND HAS A OCHOA DRAIN AND BINDER. ON 10/30 STARTED HAVING MILKY DRAINAGE FROM OCHOA TUBE Past Anesthesia/Blood Transfusion Reactions: Postoperative Nausea & Vomiting (PONV) Past Psychological History: Depression Smoking Status: Current every day smoker Past Alcohol Use History: Occasional Additional Past Alcohol Use History / Comment(s): STARTED SMOKING AT AGE 15 QUIT ON AND OFF SMOKES 1/2PPD Past Drug Use History: Marijuana Additional Drug Use History / Comment(s): occasional use of marijuana. - Past Family History Mother Family Medical History: Cancer Additional Family Medical History / Comment(s): CERVICAL CANCER Medications and Allergies Home Medications Medication Instructions Recorded Confirmed Type Escitalopram Oxalate [Lexapro] 10 mg PO DAILY 10/11/19 11/02/19 History Famotidine [Pepcid] 40 mg PO DAILY 10/11/19 11/02/19 History Ibuprofen 800 mg PO Q8H PRN 10/11/19 11/02/19 History Albuterol Inhaler [Ventolin Hfa 1 - 2 puff INHALATION RT-Q4H PRN 11/02/19 11/02/19 History Inhaler] Docusate [Colace] 100 mg PO BID PRN 11/02/19 11/02/19 History EPINEPHrine (Auto Inject) [Epipen] 0.3 mg IM ONCE PRN 11/02/19 11/02/19 History Naproxen Sodium [Aleve] 220 mg PO Q8H PRN 11/02/19 11/02/19 History diphenhydrAMINE [Benadryl] 25 mg PO TID 11/02/19 11/02/19 History predniSONE 50 mg PO DAILY 11/02/19 11/02/19 History Allergies Allergy/AdvReac Type Severity Reaction Status Date / Time No Known Allergies Allergy Verified 11/02/19 13:42 Physical Exam Vitals: Vital Signs Temp Pulse Pulse Resp BP BP Pulse Ox 11/02/19 17:11 79 16 138/65 95 11/02/19 16:56 84 16 125/65 95 11/02/19 16:41 86 16 131/67 98 11/02/19 16:26 97.5 F L 81 12 131/67 94 L 11/02/19 13:15 96.9 F L 96 18 133/60 94 L Intake and Output 11/02/19 11/02/19 11/02/19 06:59 14:59 22:59 Intake Total 1000 900 Output Total 125 Balance 1000 775 Intake: IV 1000 900 Output: Urine 100 Estimated Blood Loss 25 Other: Weight 101.469 kg Constitutional: No acute distress, conversant, pleasant Eyes: Anicteric sclerae, moist conjunctiva, no lid-lag, PERRLA ENMT: NC/AT,Oropharynx clear, no erythema, exudates Neck:Supple, FROM, no masses, or JVD, No carotid bruits; No thyromegaly Lungs: Clear to auscultation, Clear to percussion, Normal respiratory effort, no accessory muscle use Cardiovascular: Heart regular in rate and rhythm, No murmurs, gallops, or rubs no peripheral edema Abdominal: Soft Nontender, nom distended, no guarding, no rebound or rigidity, hypoactive bowel sounds, wound VAC packed midline lower abdomen Skin: Normal temperature, tone, texture, turgor, No induration No subcutaneous nodules, No rash, lesions, No ulcers Extremities:No digital cyanosis No clubbing, Pedal pulses intact and symmetrical Radial pulses intact and symmetrical not assessed, No calf tenderness Psychiatric: Alert and oriented to person, place and time, Appropriate affect Intact judgement Neuro: Muscles Strength 5/5 in all 4 extremities, Sensation to light touch grossly present throughout, Cranial nerves II-XII grossly intact. No focal sensory deficits Results CBC & Chem 7: 11/02/19 13:47 11/02/19 13:47 Labs: Abnormal Lab Results - Last 24 Hours (Table) 11/02/19 11/02/19 11/02/19 Range/Units 13:38 13:47 13:47 WBC 14.7 H (3.8-10.6) k/uL Neutrophils # 13.4 H (1.3-7.7) k/uL Lymphocytes # 0.6 L (1.0-4.8) k/uL POC Glucose (mg/dL) 100 H (75-99) mg/dL Calcium 8.1 L (8.4-10.2) mg/dL Total Protein 6.0 L (6.3-8.2) g/dL Albumin 3.1 L (3.5-5.0) g/dL Assessment and Plan Assessment: Postop abdominal wall wound infection Leukocytosis Recent ALLERGIC reaction GERD History of incisional incarcerated hernia repair Plan: The patient is admitted to primary general surgery service after having postoperative abdominal wall infection after having surgery for incarcerated incisional hernia repair 10/13 with subsequent I&D and removal of subfascial prosthetic mesh today. The patient is noted to have a white count of 14.7, she is afebrile and hemodynamically stable. Per history she is had a recent ALLERGIC reaction and will be continued on systemic steroids with prednisone which will begin to wean starting tomorrow, continue Benadryl and famotidine as needed. Agree with continuing perioperative antibiotics with cefazolin. I will continue to follow her clinical course. For further questions. Doesn't hesitate to contact us on inpatient team
--- NOTE | 2019-11-03 10:42 | P.PN ---
Subjective Progress Note Date: 11/03/19 Patient seen and examined at bedside, has some abdominal pain rated as mild, reports to passing gas, denies any bowel movement, Munoz catheter in place. Has not been ambulatory. Patient afebrile leukocytosis resolving, denies any significant hives or rashes itchiness or difficulty breathing,. No acute events overnight. Objective - Vital Signs Vital signs: Vital Signs Temp 98 F 11/03/19 07:05 Pulse 68 11/03/19 07:05 Resp 18 11/03/19 07:05 BP 111/70 11/03/19 07:05 Pulse Ox 99 11/03/19 07:05 Intake & Output 11/02/19 11/03/19 11/03/19 18:59 06:59 18:59 Intake Total 1900 300 Output Total 125 500 Balance 1775 -200 Weight 101.469 kg Intake: IV 1900 Intake, IV Titration 300 Amount D5-0.45% NaCl with KCl 300 20Meq/l 1,000 ml @ 100 mls/hr IV .Q10H [facility] Rx#: [id number] Output: Urine 100 500 Estimated Blood Loss 25 Other: Voiding Method Indwelling Catheter - Exam Constitutional: No acute distress, conversant, pleasant Eyes: Anicteric sclerae, moist conjunctiva, no lid-lag, PERRLA ENMT: NC/AT,Oropharynx clear, no erythema, exudates Neck:Supple, FROM, no masses, or JVD, No carotid bruits; No thyromegaly Lungs: Clear to auscultation, Clear to percussion, Normal respiratory effort, no accessory muscle use Cardiovascular: Heart regular in rate and rhythm, No murmurs, gallops, or rubs no peripheral edema Abdominal: Soft Nontender, nom distended, no guarding, no rebound or rigidity, hypoactive bowel sounds, wound VAC packed midline lower abdomen Skin: Normal temperature, tone, texture, turgor, No induration No subcutaneous nodules, No rash, lesions, No ulcers Extremities:No digital cyanosis No clubbing, Pedal pulses intact and symmetrical Radial pulses intact and symmetrical not assessed, No calf tenderness Psychiatric: Alert and oriented to person, place and time, Appropriate affect Intact judgement Neuro: Muscles Strength 5/5 in all 4 extremities, Sensation to light touch grossly present throughout, Cranial nerves II-XII grossly intact. No focal sensory deficits - Labs CBC & Chem 7: 11/03/19 06:21 11/03/19 06:21 Labs: Abnormal Lab Results - Last 24 Hours (Table) 11/02/19 11/02/19 11/02/19 Range/Units 13:38 13:47 13:47 WBC 14.7 H (3.8-10.6) k/uL RBC (3.80-5.40) m/uL Hgb (11.4-16.0) gm/dL Hct (34.0-46.0) % Neutrophils # 13.4 H (1.3-7.7) k/uL Lymphocytes # 0.6 L (1.0-4.8) k/uL Sodium (137-145) mmol/L Glucose (74-99) mg/dL POC Glucose (mg/dL) 100 H (75-99) mg/dL Calcium 8.1 L (8.4-10.2) mg/dL ALT (4-34) U/L Alkaline Phosphatase (38-126) U/L Total Protein 6.0 L (6.3-8.2) g/dL Albumin 3.1 L (3.5-5.0) g/dL 11/03/19 11/03/19 Range/Units 06:21 06:21 WBC (3.8-10.6) k/uL RBC 3.79 L (3.80-5.40) m/uL Hgb 10.8 L (11.4-16.0) gm/dL Hct 32.9 L (34.0-46.0) % Neutrophils # 8.6 H (1.3-7.7) k/uL Lymphocytes # (1.0-4.8) k/uL Sodium 136 L (137-145) mmol/L Glucose 105 H (74-99) mg/dL POC Glucose (mg/dL) (75-99) mg/dL Calcium 7.5 L (8.4-10.2) mg/dL ALT 47 H (4-34) U/L Alkaline Phosphatase 130 H (38-126) U/L Total Protein 5.4 L (6.3-8.2) g/dL Albumin 2.5 L (3.5-5.0) g/dL Microbiology - Last 24 Hours (Table) 11/02/19 15:28 Gram Stain - Preliminary Abdomen Wound Culture - Preliminary 11/02/19 15:28 Anaerobic Culture - Preliminary Abdomen Assessment and Plan Assessment: Postop abdominal wall wound infection * Status post I&D and mesh removal * Continue cefazolin * Patient afebrile, leukocytosis resolving * Wound care/ wound VAC per primary team Leukocytosis * Resolved patient afebrile Recent ALLERGIC reaction * Continue prednisone until Wednesday * Benadryl when necessary with famotidine GERD * Appears stable History of incisional incarcerated hernia repair Disposition * Patient doing well passing gas * anticipated discharged to home in a couple of days
--- NOTE | 2019-11-03 11:59 | P.PN ---
Subjective Progress Note Date: 11/03/19 CHIEF COMPLAINT: Postoperative abdominal wall wound infection HISTORY OF PRESENT ILLNESS: 39-year-old female who is status post incision and drainage of postoperative lower midline incision with removal of subfascial prosthetic mesh. Postop day #1. Patient examined at the bedside. Patients pain is tolerable at this time. Wound VAC is intact. Vital signs are stable. She is afebrile. WBC 10.1. PHYSICAL EXAM: VITAL SIGNS: Reviewed. GENERAL: Well-developed in no acute distress. HEENT: No sclera icterus. Extraocular movements grossly intact. Moist buccal mucosa. Head is atraumatic, normocephalic. ABDOMEN: Soft. Nondistended. Wound VAC noted. NEUROLOGIC: Alert and oriented. Cranial nerves II through XII grossly intact. ASSESSMENT: 1. Postoperative abdominal wall wound infection, status post incision and drainage with removal of subfascial prosthetic mesh and wound VAC placement 2. Recent repair of incarcerated incisional hernia with mesh and partial omentectomy, 10/13/2019 PLAN: -Continue wound vac -Pain control -Diet as tolerated -Activity as tolerated -IS 10 times an hour -Continue antibiotics. Await culture results Nurse practitioner note has been reviewed by physician. Signing provider agrees with the documented findings, assessment, and plan of care. Objective - Vital Signs Vital signs: Vital Signs Temp 98 F 11/03/19 07:05 Pulse 68 11/03/19 07:05 Resp 18 11/03/19 07:05 BP 111/70 11/03/19 07:05 Pulse Ox 99 11/03/19 07:05 Intake & Output 11/02/19 11/03/19 11/03/19 18:59 06:59 18:59 Intake Total 1900 300 Output Total 125 500 Balance 1775 -200 Weight 101.469 kg Intake: IV 1900 Intake, IV Titration 300 Amount D5-0.45% NaCl with KCl 300 20Meq/l 1,000 ml @ 100 mls/hr IV .Q10H [facility] Rx#: [id number] Output: Urine 100 500 Estimated Blood Loss 25 Other: Voiding Method Indwelling Catheter - Labs CBC & Chem 7: 11/03/19 06:21 11/03/19 06:21 Labs: Abnormal Lab Results - Last 24 Hours (Table) 11/02/19 11/02/19 11/02/19 Range/Units 13:38 13:47 13:47 WBC 14.7 H (3.8-10.6) k/uL RBC (3.80-5.40) m/uL Hgb (11.4-16.0) gm/dL Hct (34.0-46.0) % Neutrophils # 13.4 H (1.3-7.7) k/uL Lymphocytes # 0.6 L (1.0-4.8) k/uL Sodium (137-145) mmol/L Glucose (74-99) mg/dL POC Glucose (mg/dL) 100 H (75-99) mg/dL Calcium 8.1 L (8.4-10.2) mg/dL ALT (4-34) U/L Alkaline Phosphatase (38-126) U/L Total Protein 6.0 L (6.3-8.2) g/dL Albumin 3.1 L (3.5-5.0) g/dL 11/03/19 11/03/19 Range/Units 06:21 06:21 WBC (3.8-10.6) k/uL RBC 3.79 L (3.80-5.40) m/uL Hgb 10.8 L (11.4-16.0) gm/dL Hct 32.9 L (34.0-46.0) % Neutrophils # 8.6 H (1.3-7.7) k/uL Lymphocytes # (1.0-4.8) k/uL Sodium 136 L (137-145) mmol/L Glucose 105 H (74-99) mg/dL POC Glucose (mg/dL) (75-99) mg/dL Calcium 7.5 L (8.4-10.2) mg/dL ALT 47 H (4-34) U/L Alkaline Phosphatase 130 H (38-126) U/L Total Protein 5.4 L (6.3-8.2) g/dL Albumin 2.5 L (3.5-5.0) g/dL Microbiology - Last 24 Hours (Table) 11/02/19 15:28 Gram Stain - Preliminary Abdomen Wound Culture - Preliminary 11/02/19 15:28 Anaerobic Culture - Preliminary Abdomen
[2019-11-03] MEDS: HYDROmorphone 1 MG/ML 1 ML SYRINGE IVP PRN ×3 (12:49→22:21)
--- NOTE | 2019-11-03 23:33 | P.CONS ---
History of Present Illness - Reason for Consult Consult date: 11/03/19 abdominal wound infection Requesting physician: Avi Means - Chief Complaint abd pain and purulent drainage in the catheter x few days - History of Present Illness Patient is a 39-year-old female who is status post incarcerated incisional hernia repair with mesh and partial omentectomy that was performed on October 13, 2019 patient did well postoperatively however over the last few days patient noticed to having more abdominal pain describing it more sharp to dull aching 69-year-old friend and noticed to have more purulent drainage from the drainage catheter patient did have some chills but denies high-grade fever patient was evaluated by the surgeon yesterday in the office with concern for possible mesh infection and the patient has been admitted to the hospital she was taken to the OR she is status post laparotomy and removal of the some now presented to hospital she was noticed to have a purulent fluid which has been cultured wound has been subsequently closed with wound VAC patient has been treated with cefazolin 2 g every 8 hour infectious disease was consulted for further recommendation about antibiotic therapy Review of Systems positive point has been mentioned in HPI rest of the systems are negative. Past Medical History Past Medical History: GERD/Reflux Additional Past Medical History / Comment(s): HAD A POSSIBLE QUESTIONABLE ALLERGIC RXN ON MONDAY 10/30- HAD A FEVER, TOOK A MOTRIN, STARTED FEELING SOB. USED INHALER. THEN STARTED "FEELING LIKE THROAT CLOSED UP", ITCHING IN HANDS UNCONTROLLABLE, AND BROKE OUT IN RASH. WAS SENT TO [facility] FOR RX. NOT SURE WHAT CAUSED THE RXN. PT STATED "HAS HAD MOTRIN 800 MG BEFORE W/O PROBLEMS." History of Any Multi-Drug Resistant Organisms: None Reported Past Surgical History: Section, Cholecystectomy, Hernia Repair, Orthopedic Surgery Additional Past Surgical History / Comment(s): C SECTION X2 , ARTHROSCOPIC RIGHT KNEE , LEFT FINGER(POINTER) SURGERY. VENTRAL HERNIA REPAIR 10/13/19 STAYED UNTIL THE FOLLOWING WEDNESDAY AND HAS A OCHOA DRAIN AND BINDER. ON 10/30 STARTED HAVING MILKY DRAINAGE FROM OCHOA TUBE Past Anesthesia/Blood Transfusion Reactions: Postoperative Nausea & Vomiting (P ONV) Past Psychological History: Depression Smoking Status: Current every day smoker Past Alcohol Use History: Occasional Additional Past Alcohol Use History / Comment(s): STARTED SMOKING AT AGE 15 QUIT ON AND OFF SMOKES 1/2PPD Past Drug Use History: Marijuana Additional Drug Use History / Comment(s): occasional use of marijuana. - Past Family History Mother Family Medical History: Cancer Additional Family Medical History / Comment(s): CERVICAL CANCER Medications and Allergies Home Medications Medication Instructions Recorded Confirmed Type Escitalopram Oxalate [Lexapro] 10 mg PO DAILY 10/11/19 11/02/19 History Famotidine [Pepcid] 40 mg PO DAILY 10/11/19 11/02/19 History Ibuprofen 800 mg PO Q8H PRN 10/11/19 11/02/19 History Albuterol Inhaler [Ventolin Hfa 1 - 2 puff INHALATION RT-Q4H PRN 11/02/1910/08 History Inhaler] Docusate [Colace] 100 mg PO BID PRN 11/02/19 11/02/19 History EPINEPHrine (Auto Inject) [Epipen] 0.3 mg IM ONCE PRN 11/02/19 11/02/19 History Naproxen Sodium [Aleve] 220 mg PO Q8H PRN 11/02/19 11/02/19 History diphenhydrAMINE [Benadryl] 25 mg PO TID 11/02/19 11/02/19 History predniSONE 50 mg PO DAILY 11/02/19 11/02/19 History Hydrocodone/Acetaminophen [[place] 1 tab PO Q6HR PRN #10 tab 11/03/19 Rx 5-325] Allergies Allergy/AdvReac Type Severity Reaction Status Date / Time No Known Allergies Allergy Verified 11/02/19 13:42 Physical Exam Vitals: Vital Signs Temp Pulse Pulse Resp BP BP Pulse Ox 11/03/19 07:05 98 F 68 18 111/70 99 11/03/19 00:49 97.6 F 69 18 114/76 98 11/02/19 19:30 85 18 103/64 96 11/02/19 19:17 77 11/02/19 19:15 73 18 91/53 94 L 11/02/19 19:00 78 18 114/70 94 L 11/02/19 18:45 81 18 112/69 96 11/02/19 18:30 79 98/57 11/02/19 18:15 76 110/74 11/02/19 18:00 79 101/58 11/02/19 17:45 82 104/63 11/02/19 17:30 98.4 F 87 16 107/69 97 11/02/19 17:11 79 16 138/65 95 11/02/19 16:56 84 16 125/65 95 11/02/19 16:41 86 16 131/67 98 11/02/19 16:26 97.5 F L 81 12 131/67 94 L 11/02/19 13:15 96.9 F L 96 18 133/60 94 L Intake and Output 11/02/19 11/03/19 11/03/19 22:59 06:59 14:59 Intake Total 1200 Output Total 125 500 Balance 1075 -500 Intake: IV 900 Intake, IV Titration 300 Amount D5-0.45% NaCl with KCl 300 20Meq/l 1,000 ml @ 100 mls/hr IV .Q10H [id number] Rx#: [id number] Output: Urine 100 500 Estimated Blood Loss 25 Other: Voiding Method Indwelling Catheter GENERAL DESCRIPTION: Middle-aged female lying in bed, no distress. No tachypnea or accessory muscle of respiration use. HEENT: Shows Pallor , no scleral icterus. Oral mucous membrane is dry. NECK: Trachea central, no thyromegaly. LUNGS: Unlabored breathing. Clear to auscultation anteriorly. No wheeze or crackle. HEART: S1, S2, regular rate and rhythm. ABDOMEN: Soft, no tenderness , abdominal wound is currently covered with a wound VAC EXTREMITIES: No edema of feet. SKIN: No rash, no masses palpable. NEUROLOGICAL: The patient is awake, alert, oriented x3, mood and affect normal Results CBC & Chem 7: 11/03/19 06:21 11/03/19 06:21 Labs: Abnormal Lab Results - Last 24 Hours (Table) 11/02/19 11/02/19 11/02/19 Range/Units 13:38 13:47 13:47 WBC 14.7 H (3.8-10.6) k/uL RBC (3.80-5.40) m/uL Hgb (11.4-16.0) gm/dL Hct (34.0-46.0) % Neutrophils # 13.4 H (1.3-7.7) k/uL Lymphocytes # 0.6 L (1.0-4.8) k/uL Sodium (137-145) mmol/L Glucose (74-99) mg/dL POC Glucose (mg/dL) 100 H (75-99) mg/dL Calcium 8.1 L (8.4-10.2) mg/dL ALT (4-34) U/L Alkaline Phosphatase (38-126) U/L Total Protein 6.0 L (6.3-8.2) g/dL Albumin 3.1 L (3.5-5.0) g/dL 11/03/19 11/03/19 Range/Units 06:21 06:21 WBC (3.8-10.6) k/uL RBC 3.79 L (3.80-5.40) m/uL Hgb 10.8 L (11.4-16.0) gm/dL Hct 32.9 L (34.0-46.0) % Neutrophils # 8.6 H (1.3-7.7) k/uL Lymphocytes # (1.0-4.8) k/uL Sodium 136 L (137-145) mmol/L Glucose 105 H (74-99) mg/dL POC Glucose (mg/dL) (75-99) mg/dL Calcium 7.5 L (8.4-10.2) mg/dL ALT 47 H (4-34) U/L Alkaline Phosphatase 130 H (38-126) U/L Total Protein 5.4 L (6.3-8.2) g/dL Albumin 2.5 L (3.5-5.0) g/dL Microbiology - Last 24 Hours (Table) 11/02/19 15:28 Gram Stain - Preliminary Abdomen Wound Culture - Preliminary 11/02/19 15:28 Anaerobic Culture - Preliminary Abdomen Assessment and Plan Assessment: Patient with recent incarcerated incisional hernia repair with mesh in this patient has been admitted to hospital with more cloudy drainage from which drainage catheter with elevated white count now with evidence of abdominal mesh infection which has been removed culture has been obtained which are currently pending however need to cover for the gram-positive skin lily suggestive once to the likely pathogen (1) Abdominal abscess Current Visit: Yes Status: Acute Code(s): [id number] - SNOMED Code(s): 37895440 (2) Post op infection Current Visit: Yes Status: Acute Code(s): T81.40XA - INFECTION FOLLOWING A PROCEDURE, UNSPECIFIED, INIT SNOMED Code(s): 55930370 Plan: 1-we will reevaluate wound tomorrow at the time of wound VAC changes 2-Cefazolin 2 g every 8 hour We will follow on clinical condition and cultures to further adjust medication if needed Thank you for this consultation we will follow the patient along with you Time with Patient: Greater than 30
[2019-11-04] MEDS: KETOROLAC 30 MG/ML 1 ML VIAL IVP SCH ×3 (00:58→11:13)
[2019-11-04] MEDS: HEPARIN SODIUM,PORCINE 5,000 UNIT/ML 1 ML VIAL SQ SCH ×4 (00:58→23:38)
[2019-11-04] MEDS: HYDROmorphone 1 MG/ML 1 ML SYRINGE IVP PRN ×6 (04:08→23:42)
[2019-11-04] MEDS: D5-0.45% NACL WITH KCL 20MEQ/L 1,000 ML IV SCH ×3 (07:08→19:25)
[2019-11-04] MEDS: SODIUM CHLORIDE 0.9% 1,000 ML IV SCH ×2 (07:09→09:18)
[2019-11-04] MEDS: DOCUSATE 100 MG CAP PO SCH ×2 (07:50→19:27)
[2019-11-04] MEDS: PANTOPRAZOLE 40 MG TABLET PO SCH (07:51)
[2019-11-04] MEDS: diphenhydrAMINE 25 MG CAP PO SCH ×3 (07:51→21:19)
[2019-11-04] MEDS: predniSONE 50 MG TAB PO SCH (07:52)
[2019-11-04] MEDS: ESCITALOPRAM 10 MG TAB PO SCH (07:52)
--- NOTE | 2019-11-04 09:06 | P.PN ---
Progress Note - Text Progress Note Date: 11/04/19 The patient's resting comfortably in bed. She still has complaints of incisional pain. Her wound VAC is in place. Abdomen soft. There is some minimal tenderness. Status post explantation of infected mesh. Patient continue local wound care with wound VAC. We dysphagia discharged home with 24-48 hours.
--- NOTE | 2019-11-04 14:29 | P.PN ---
Subjective Progress Note Date: 11/04/19 Patient seen and examined at bedside currently having her wound VAC changed by nursing reports her pain is tolerable. No acute events overnight patient afebrile, Objective - Vital Signs Vital signs: Vital Signs Temp 97.6 F 11/04/19 07:00 Pulse 83 11/04/19 07:00 Resp 17 11/04/19 07:00 BP 130/74 11/04/19 07:00 Pulse Ox 97 11/04/19 08:55 Intake & Output 11/03/19 11/04/19 11/04/19 18:59 06:59 18:59 Output Total 900 Balance -900 Output: Urine 900 Uretheral (Munoz) 500 Other: Voiding Method Indwelling Catheter Toilet Toilet # Voids 3 2 1 - Exam Constitutional: No acute distress, conversant, pleasant Eyes: Anicteric sclerae, moist conjunctiva, no lid-lag, PERRLA ENMT: NC/AT,Oropharynx clear, no erythema, exudates Neck:Supple, FROM, no masses, or JVD, No carotid bruits; No thyromegaly Lungs: Clear to auscultation, Clear to percussion, Normal respiratory effort, no accessory muscle use Cardiovascular: Heart regular in rate and rhythm, No murmurs, gallops, or rubs no peripheral edema Abdominal: Soft Nontender, nom distended, no guarding, no rebound or rigidity, hypoactive bowel sounds, wound VAC packed midline lower abdomen Skin: Normal temperature, tone, texture, turgor, No induration No subcutaneous nodules, No rash, lesions, No ulcers Extremities:No digital cyanosis No clubbing, Pedal pulses intact and sy mmetrical Radial pulses intact and symmetrical not assessed, No calf tenderness Psychiatric: Alert and oriented to person, place and time, Appropriate affect Intact judgement Neuro: Muscles Strength 5/5 in all 4 extremities, Sensation to light touch grossly present throughout, Cranial nerves II-XII grossly intact. No focal sensory deficits - Labs CBC & Chem 7: 11/03/19 06:21 11/03/19 06:21 Labs: Microbiology - Last 24 Hours (Table) 11/02/19 15:28 Gram Stain - Preliminary Abdomen Wound Culture - Preliminary Presumptive Staph aureus Assessment and Plan Assessment: Postop abdominal wall wound infection * Status post I&D and mesh removal * Continue cefazolin * Patient afebrile, leukocytosis resolving * Wound care/ wound VAC per primary team Leukocytosis * Resolved patient afebrile Recent ALLERGIC reaction * Continue prednisone until Wednesday * Benadryl when necessary with famotidine GERD * Appears stable History of incisional incarcerated hernia repair Disposition * Patient doing well passing gas * anticipated discharged to home in a couple of days
--- NOTE | 2019-11-04 15:04 | PN ---
PROGRESS NOTE DATE OF SERVICE: 11/04/2019 REASON FOR FOLLOWUP: Abdominal wound infection. INTERVAL HISTORY: The patient is currently afebrile. She has been breathing comfortably. The patient has been complaining of abdominal pain, but no worsening. No chest pain, shortness of breath or cough. No diarrhea. PHYSICAL EXAMINATION: Blood pressure 130/74 with a pulse of 83, temperature 97.6. She is 97% on room air. General description is a middle-aged female lying in bed in no distress. RESPIRATORY SYSTEM: Unlabored breathing, clear to auscultation anteriorly. HEART: S1, S2. Regular rate and rhythm. ABDOMEN: Soft. Wound base looks clean. No significant soft tissue surrounding redness. LABS: Hemoglobin is 10.8, white count 10.1. Wound culture presumptive Staph aureus. DIAGNOSTIC IMPRESSION AND PLAN: Patient with abdominal wound infection, status post surgical debridement and removal of infected mesh. Culture with presumptive Staph aureus likely MSSA. Patient is covered with cefazolin 2 grams q.8 hours to continue. Local wound care with wound VAC and monitor clinical course closely. MMODL / IJN: [id number] /
[2019-11-04] MEDS: HYDROcodone/APAP 5-325MG 1 EACH TAB PO PRN (21:19)
[2019-11-05] MEDS: SODIUM CHLORIDE 0.9% 1,000 ML IV SCH ×3 (02:22→22:44)
[2019-11-05] MEDS: HYDROmorphone 1 MG/ML 1 ML SYRINGE IVP PRN ×3 (04:29→19:27)
[2019-11-05] MEDS: D5-0.45% NACL WITH KCL 20MEQ/L 1,000 ML IV SCH ×2 (04:33→14:57)
[2019-11-05] MEDS: diphenhydrAMINE 25 MG CAP PO SCH ×3 (07:23→22:41)
[2019-11-05] MEDS: DOCUSATE 100 MG CAP PO SCH ×2 (07:24→19:27)
[2019-11-05] MEDS: PANTOPRAZOLE 40 MG TABLET PO SCH (07:24)
[2019-11-05] MEDS: HYDROcodone/APAP 5-325MG 1 EACH TAB PO PRN ×3 (07:24→22:41)
[2019-11-05] MEDS: HEPARIN SODIUM,PORCINE 5,000 UNIT/ML 1 ML VIAL SQ SCH ×2 (07:24→15:01)
[2019-11-05] MEDS: ESCITALOPRAM 10 MG TAB PO SCH (07:25)
[2019-11-05] MEDS: predniSONE 50 MG TAB PO SCH (07:25)
--- NOTE | 2019-11-05 09:26 | P.PN ---
Subjective Progress Note Date: 11/05/19 Patient doing well reports that she's been up and ambulatory, does report some soreness around her incision, denies any fevers or chills, reports to be passing gas feels like she wants to have a bowel movement this morning. Patient afebrile without leukocytosis Objective - Vital Signs Vital signs: Vital Signs Temp 97.7 F 11/05/19 07:00 Pulse 78 11/05/19 07:00 Resp 17 11/05/19 07:00 BP 126/73 11/05/19 07:00 Pulse Ox 96 11/05/19 07:00 Intake & Output 11/04/19 11/05/19 11/05/19 18:59 06:59 18:59 Intake Total 200 Balance 200 Intake: Intake, IV Titration 200 Amount D5-0.45% NaCl with KCl 200 20Meq/l 1,000 ml @ 100 mls/hr IV .Q10H NIKUNJ Rx#: [id number] Other: Voiding Method Toilet Toilet Toilet # Voids 1 1 1 - Exam Constitutional: No acute distress, conversant, pleasant Eyes: Anicteric sclerae, moist conjunctiva, no lid-lag, PERRLA ENMT: NC/AT,Oropharynx clear, no erythema, exudates Neck:Supple, FROM, no masses, or JVD, No carotid bruits; No thyromegaly Lungs: Clear to auscultation, Clear to percussion, Normal respiratory effort, no accessory muscle use Cardiovascular: Heart regular in rate and rhythm, No murmurs, gallops, or rubs no peripheral edema Abdominal: Soft Nontender, nom distended, no guarding, no rebound or rigidity, hypoactive bowel sounds, wound VAC packed midline lower abdomen Skin: Normal temperature, tone, texture, turgor, No induration No subcutaneous nodules, No rash, lesions, No ulcers Extremities:No digital cyanosis No clubbing, Pedal pulses intact and sy mmetrical Radial pulses intact and symmetrical not assessed, No calf tenderness Psychiatric: Alert and oriented to person, place and time, Appropriate affect Intact judgement Neuro: Muscles Strength 5/5 in all 4 extremities, Sensation to light touch grossly present throughout, Cranial nerves II-XII grossly intact. No focal sensory deficits - Labs CBC & Chem 7: 11/03/19 06:21 11/03/19 06:21 Labs: Microbiology - Last 24 Hours (Table) 11/02/19 15:28 Anaerobic Culture - Preliminary Abdomen 11/02/19 15:28 Gram Stain - Final Abdomen Wound Culture - Final Staphylococcus aureus Assessment and Plan Assessment: Postop abdominal wall wound infection * Status post I&D and mesh removal * Continue cefazolin * Patient afebrile, leukocytosis resolving * Wound care/ wound VAC per primary team Leukocytosis * Resolved patient afebrile Recent ALLERGIC reaction * Prednisone discontinued * Benadryl when necessary with famotidine GERD * Appears stable History of incisional incarcerated hernia repair Disposition * Patient doing well passing gas * anticipated discharged to home in a couple of days
--- NOTE | 2019-11-05 10:20 | P.PN ---
Progress Note - Text Progress Note Date: 11/05/19 The patient is resting in bed. She states she has some knee pain associated with the wound VAC. On exam her vital signs are stable. Her abdomen soft. Wound VAC is in position. There is no evidence of any significant cellulitis of the abdominal wall. Status post removal of infected mesh. Patient will continue to receive IV antibiotic. We discussed the discharge home tomorrow.
--- NOTE | 2019-11-05 18:30 | PN ---
PROGRESS NOTE DATE OF SERVICE: 11/05/2019 REASON FOR FOLLOWUP: Abdominal wound infection. INTERVAL HISTORY: The patient is currently afebrile. She has been breathing comfortably. The patient denies having any chest pain or any cough. Abdominal pain is currently controlled. No nausea, no vomiting and no diarrhea. PHYSICAL EXAMINATION: Blood pressure is 152/82 with pulse 73. Temperature of 97.6. She is 96% on room air. General description is a middle-aged female lying in bed in no distress. Respiratory system: Unlabored breathing, clear to auscultation anteriorly. Heart S1, S2 regular rate and rhythm. ABDOMEN: Soft. The wound is currently covered with wound VAC. Extremities: No edema of the feet. LAB: No new labs have been obtained today. Wound culture with MSSA. DIAGNOSTIC IMPRESSION AND PLAN: Patient with MSSA abdominal wound infection in this patient who is status post laparotomy and removal of infected mesh. The patient overall clinical improvement to finish with therapy with oral Keflex; 500 mg p.o. every 6 hours for 2 weeks. Local wound care with wound VAC and close outpatient followup. MMODL / IJN: [id number] /
[2019-11-06] MEDS: HEPARIN SODIUM,PORCINE 5,000 UNIT/ML 1 ML VIAL SQ SCH ×3 (00:43→15:38)
[2019-11-06] MEDS: D5-0.45% NACL WITH KCL 20MEQ/L 1,000 ML IV SCH ×2 (02:17→13:42)
[2019-11-06] MEDS: HYDROmorphone 1 MG/ML 1 ML SYRINGE IVP PRN (05:02)
[2019-11-06 07:43] VITALS: RESP 17
[2019-11-06] MEDS: HYDROcodone/APAP 5-325MG 1 EACH TAB PO PRN ×2 (08:12→13:07)
[2019-11-06] MEDS: DOCUSATE 100 MG CAP PO SCH (08:13)
[2019-11-06] MEDS: diphenhydrAMINE 25 MG CAP PO SCH ×2 (08:13→15:38)
[2019-11-06] MEDS: PANTOPRAZOLE 40 MG TABLET PO SCH (08:13)
[2019-11-06] MEDS: ESCITALOPRAM 10 MG TAB PO SCH (08:14)
[2019-11-06] MEDS: SODIUM CHLORIDE 0.9% 1,000 ML IV SCH ×2 (08:21→15:39)
--- NOTE | 2019-11-06 10:38 | P.PN ---
<Katrina Schultz - Last Filed: 11/06/19 10:37> Subjective Progress Note Date: 11/06/19 CHIEF COMPLAINT: Postoperative abdominal wall wound infection HISTORY OF PRESENT ILLNESS: 39-year-old female who is status post incision and drainage of postoperative lower midline incision with removal of subfascial prosthetic mesh. Patient examined at the bedside. Patients pain is tolerable at this time. Wound VAC is intact. Vital signs are stable. She is afebrile. PHYSICAL EXAM: VITAL SIGNS: Reviewed. GENERAL: Well-developed in no acute distress. HEENT: No sclera icterus. Extraocular movements grossly intact. Moist buccal mucosa. Head is atraumatic, normocephalic. ABDOMEN: Soft. Nondistended. Wound VAC noted. NEUROLOGIC: Alert and oriented. Cranial nerves II through XII grossly intact. ASSESSMENT: 1. Postoperative abdominal wall wound infection, status post incision and drainage with removal of subfascial prosthetic mesh and wound VAC placement 2. Recent repair of incarcerated incisional hernia with mesh and partial omentectomy, 10/13/2019 PLAN: Case discussed with pillowcase turner. Currently awaiting approval for wound vac at home. Will DC when approval received. Patient to be discharged on oral antibiotics per Dr. Yusuf Nurse practitioner note has been reviewed by physician. Signing provider agrees with the documented findings, assessment, and plan of care. Objective - Vital Signs Vital signs: Vital Signs Temp 97.7 F 11/06/19 07:00 Pulse 77 11/06/19 07:00 Resp 17 11/06/19 07:00 BP 144/80 11/06/19 07:00 Pulse Ox 96 11/06/19 07:00 Intake & Output 11/05/19 11/06/19 11/06/19 18:59 06:59 18:59 Intake Total 240 Balance 240 Intake: Oral 240 Other: Voiding Method Toilet Toilet # Voids 1 1 - Labs CBC & Chem 7: 11/03/19 06:21 11/03/19 06:21 <Avi Means - Last Filed: 11/06/19 14:59> Objective - Vital Signs Vital signs: Vital Signs Temp 98.2 F 11/06/19 14:29 Pulse 93 11/06/19 14:29 Resp 17 11/06/19 14:29 BP 130/68 11/06/19 14:29 Pulse Ox 95 11/06/19 14:29 Intake & Output 11/05/19 11/06/19 11/06/19 18:59 06:59 18:59 Intake Total 1240 Balance 1240 Intake: Intake, IV Titration 600 Amount D5-0.45% NaCl with KCl 600 20Meq/l 1,000 ml @ 100 mls/hr IV .Q10H NIKUNJ Rx#: [id number] Oral 640 Other: Voiding Method Toilet Toilet # Voids 1 1 - Labs CBC & Chem 7: 11/03/19 06:21 11/03/19 06:21
--- NOTE | 2019-11-06 11:52 | P.DS ---
<Katrina Schultz - Last Filed: 11/06/19 11:49> Providers Expected date of discharge: 11/06/19 Hospital Course: 39-year-old female who is status post incision and drainage of postoperative lower midline incision with removal of subfascial prosthetic mesh. Patient had wound vac applied postoperatively. Cultures positive for MSSA. She was evaluated by infectious disease during hospitalization. She is stable for discharge home today with wound vac and oral antibiotics per ID recommendations. Please see EMR for further hospital course details. Discharge Diagnosis: 1. Postoperative abdominal wall wound infection, status post incision and drainage with removal of subfascial prosthetic mesh and wound VAC placement 2. Recent repair of incarcerated incisional hernia with mesh and partial omentectomy, 10/13/2019 Nurse practitioner note has been reviewed by physician. Signing provider agrees with the documented findings, assessment, and plan of care. Patient Condition at Discharge: Stable Plan - Discharge Summary New Discharge Prescriptions: New Hydrocodone/Acetaminophen [[place] 5-325] 1 tab PO Q6HR PRN #10 tab PRN Reason: Pain Cephalexin [Keflex] 500 mg PO Q6HR 14 Days #56 cap Continue Escitalopram Oxalate [Lexapro] 10 mg PO DAILY Famotidine [Pepcid] 40 mg PO DAILY Albuterol Inhaler [Ventolin Hfa Inhaler] 1 - 2 puff INHALATION RT-Q4H PRN PRN Reason: Shortness Of Breath diphenhydrAMINE [Benadryl] 25 mg PO TID Docusate [Colace] 100 mg PO BID PRN PRN Reason: Constipation EPINEPHrine (Auto Inject) [Epipen] 0.3 mg IM ONCE PRN PRN Reason: Anaphylaxis predniSONE 50 mg PO DAILY Discontinued Ibuprofen 800 mg PO Q8H PRN PRN Reason: Pain Naproxen Sodium [Aleve] 220 mg PO Q8H PRN PRN Reason: Pain Discharge Medication List Escitalopram Oxalate [Lexapro] 10 mg PO DAILY 10/11/19 [History] Famotidine [Pepcid] 40 mg PO DAILY 10/11/19 [History] Albuterol Inhaler [Ventolin Hfa Inhaler] 1 - 2 puff INHALATION RT-Q4H PRN 11/02/19 [History] Docusate [Colace] 100 mg PO BID PRN 11/02/19 [History] EPINEPHrine (Auto Inject) [Epipen] 0.3 mg IM ONCE PRN 11/02/19 [History] diphenhydrAMINE [Benadryl] 25 mg PO TID 11/02/19 [History] predniSONE 50 mg PO DAILY 11/02/19 [History] Hydrocodone/Acetaminophen [[place] 5-325] 1 tab PO Q6HR PRN #10 tab 11/03/19 [Rx] Cephalexin [Keflex] 500 mg PO Q6HR 14 Days #56 cap 11/06/19 [Rx] Follow up Appointment(s)/Referral(s): Avi Means MD [Medical Doctor] - 1 Week Amie Yusuf MD [STAFF PHYSICIAN] - 1 Week Patient Instructions/Handouts: Negative Pressure Wound Therapy (DC) <Avi Means - Last Filed: 11/06/19 14:59> Providers Date of admission: 11/02/19 11:41 Attending physician: Avi Means Consults: 11/02/19 16:50 Consult Physician Routine Consulting Provider: Brittney Arauz Consult Reason/Comments: med mgmt Do you want consulting provider notified?: Yes Consult Physician Routine Consulting Provider: Amie Yusuf Consult Reason/Comments: Abdominal wall infection Do you want consulting provider notified?: Yes Primary care physician: Stated None Hospital Course: As above. Patient doing better. Cultures noted. Home on oral antibiotics with wound VAC therapy. Follow-up in 1 week.
--- NOTE | 2019-11-06 12:22 | PN ---
PROGRESS NOTE DATE OF SERVICE: 11/06/2019 REASON FOR FOLLOWUP: Abdominal wound infection MSSA. INTERVAL HISTORY: The patient is currently afebrile. The patient has been breathing comfortably. She is complaining of some abdominal pain, but no worsening. No chest pain, shortness of breath or cough. No diarrhea. PHYSICAL EXAMINATION: Her blood pressure is 144/80 with a pulse of 77, temperature of 97.7. She is 96% on room air. General description is a middle-aged female lying in bed in no distress. RESPIRATORY SYSTEM: Unlabored breathing, clear to auscultation anteriorly. HEART: S1, S2. Regular rate and rhythm. ABDOMEN: Soft, no tenderness. Wound is currently covered with wound VAC. LABS: No new labs have been obtained. White count was normal on 11/03. Blood cultures not done. Local wound culture with MSSA. DIAGNOSTIC IMPRESSION AND PLAN: Patient with abdominal wound infection. Culture has been positive for MSSA. The patient is covered cefazolin, finish therapy with oral Keflex 500 mg p.o. q.6 hours for 10 days. Local care with wound VAC and close [facility]. MMODL / IJN: [id number] /
[2019-11-06 14:29] VITALS: BP 130/68; PULSE 93; TEMP 98.2
--- NOTE | 2019-11-09 08:26 | CDI ---
Documentation Clarification Form Date: 11/09/19 From: Betzy Lazo Phone: If you have a question about this query, please contact Tori Dejesus, Repeat Chief at [phone] between 8am and 5pm. Admit Date: 11/02/19 Discharge Date:11/06/19 Patient Name: Leslie Phillips Visit Number: [id number] ATTENTION: The Clinical Documentation Specialists (CDI) and [facility] Coding Staff appreciate your assistance in clarifying documentation. Please respond to the clarification below the line at the bottom and electronically sign. The CDI & [facility] Coding staff will review the response and follow-up if needed. Please note: Queries are made part of the Legal Health Record. If you have any questions, please contact the author of this message via ITS. Dear Dr. Means Postoperative abdominal wall wound infection is documented in Dr. Desai's consult note, the procedure note, discharge summary and Dr. Desai's and your progress notes. Documentation in the procedure note states that the mesh certainly seems to be involved in the postoperative infection and required excision Patients Admitting Diagnosis: Postop abdominal wall wound infection Post-Operative Diagnosis: Postop abdominal wall wound infection Procedure performed: I&D of the postoperative midline incision with removal subfascial prosthetic mesh History/Risk Factors: History of hernia with recent repair Clinical Indicators: Chills, subjective fever, increasing pain cloudy drainage Treatment: I&D and removal of mesh In order to accurately reflect this patients severity of illness, please clarify if the mesh was the cause of the postop abdominal wound infection? Yes No Other, please specify Unable to determine __No, the mesh was not the cause for the postoperative abdominal wound infection. The mesh however was involved in the infection and required removal. Suspect infection related to indwelling OCHOA drain and bacterial contamination along that tract site. MTDD
== END 2019-11-06 16:08 | disposition home health service (06) | DRG 909 ==
LOC: 4SSUR 11:41
PROVIDERS: ADMIT Surgery; ATTEND Surgery
PROC: 0WPF0JZ Removal of Synthetic Substitute from Abdominal Wall, Open Approach (ICD-10-PCS; principal; 2019-11-02 14:50)
PROC: 0J9800Z Drainage of Abdomen Subcutaneous Tissue and Fascia with Drainage Device, Open Approach (ICD-10-PCS; principal; 2019-11-02 14:50)
DX: T85.79XA Infection and inflammatory reaction due to other internal prosthetic devices, implants and grafts, initial encounter (principal); B95.61 Methicillin susceptible Staphylococcus aureus infection as the cause of diseases classified elsewhere; E66.9 Obesity, unspecified; F17.210 Nicotine dependence, cigarettes, uncomplicated; K21.9 Gastro-esophageal reflux disease without esophagitis; R13.10 Dysphagia, unspecified; F32.9 Major depressive disorder, single episode, unspecified; K64.9 Unspecified hemorrhoids; F41.9 Anxiety disorder, unspecified; Z79.899 Other long term (current) drug therapy; Z79.52 Long term (current) use of systemic steroids; D72.829 Elevated white blood cell count, unspecified; Z68.38 Body mass index [BMI] 38.0-38.9, adult; Z90.49 Acquired absence of other specified parts of digestive tract; Z80.52 Family history of malignant neoplasm of bladder; Z80.49 Family history of malignant neoplasm of other genital organs; Y83.8 Other surgical procedures as the cause of abnormal reaction of the patient, or of later complication, without mention of misadventure at the time of the procedure
CPT/HCPCS: 80053; 84703; 85025; 87070; 87075; 87077; 87186; 87205; 94760

== ENCOUNTER → 2020-07-30 | Outpatient (CLI) | payer OTHER ==
--- NOTE | 2020-07-30 15:43 | CONS ---
CONSULTATION REASON FOR CONSULTATION: Hypersomnia. A 40-year-old morbidly obese female patient coming in for symptoms of obstructive sleep apnea. The patient has loud snoring. She quits breathing at night as reported by her boyfriend and she wakes up tired and sleepy and she feels non refreshed during the day. She goes to bed at around 8-9 p.m. wakes up at 6:30 a.m. in the morning. She feels tired during the day. She naps and she can easily fall asleep at any time on demand. She smokes cigarettes and she occasionally drinks alcohol. She is currently living with her boyfriend. She has gained approximately 50 pounds over the past 10 years. Most of the weight gain occurred after her childbirth. Her current Graham Score is at 17. No sleep paralysis. No hallucinations. No cataplexy. No head trauma. No meningitis. No history of CVA. No neurologic disorders. She has chronic anxiety and depression. The patient is taking Lexapro in that regard. She is a mouth breather. She wakes up with a dry mouth in the morning. She is unable to sleep on her back. She prefers her sides. PAST MEDICAL HISTORY: Chronic anxiety/depression, obesity, osteoarthritis. PAST SURGICAL HISTORY: Past surgical history includes x2, hernia surgery and arthroscopy. DRUG ALLERGIES: To IBUPROFEN. OUTPATIENT MEDICATIONS INCLUDE: 1. Meloxicam on a p.r.n. basis. 2. Lexapro 10 mg p.o. daily. 3. Pepcid 20 mg once a day. 4. Albuterol HFA on a p.r.n. basis. SOCIAL HISTORY: She is a smoker, around half to 1 pack of cigarettes a day. No history of alcoholism. No history of IV drugs. FAMILY HISTORY: Positive for sleep apnea. REVIEW OF SYSTEMS: A 14-point review of system was done. Positive findings were mentioned in history of present illness. The patient watches TV in her bedroom. She likes to position herself in various body positions, mainly on her sides. She wakes up and multiple occasions in the middle of the night and she takes naps during the day. No nocturnal heartburn. No nocturnal chest pain or shortness of breath. PHYSICAL EXAMINATION: BP is 131/83, pulse 99, respirations 16, temperature 98.5 saturation 96% on room air. Height is 5, 3, weight is 298. BMI is 52.4. Graham score is 17. Neck size 18 inches, weight is 298, height is 5, 3. GENERAL APPEARANCE: Calm, comfortable. HEAD: Atraumatic, normocephalic. NECK: Supple, Mallampati class 4. There is no goiter or neck masses. Slight overbite. LUNGS: Clear to auscultation. HEART: Heart sounds are regular rate and rhythm, normal S1, S2. No murmurs. ABDOMEN: Soft, nontender, no organomegaly. EXTREMITIES: No edema, no cyanosis or clubbing. NEUROLOGIC: Awake and alert, there is no focal neurological deficit. PSYCHIATRIC: Negative for any active depression symptoms at this point in time. IMPRESSION: 1. Hypersomnia, Graham score of 17, high suspicion for obstructive sleep apnea. 2. Loud snoring. 3. Sleep fragmentation. 4. Obesity with a BMI of 52. 5. Hypersomnia, Graham score of 17. 6. Osteoarthritis. 7. Chronic anxiety, depression, on Lexapro. PLAN: 1. Encourage weight loss. 2. Sleep on the side. 3. Optimize sleep hygiene measures. 4. Proceed with a home sleep study. 5. Further recommendations are to follow on treatment options based on results of the home sleep study testing. MMODL / IJN: [id number] /
== END | disposition home or self-care (01) ==
LOC: SLEEP 13:54
PROVIDERS: ATTEND Internal Medicine Critical Care Medicine
DX: G47.10 Hypersomnia, unspecified (principal); R06.83 Snoring; M19.90 Unspecified osteoarthritis, unspecified site; F32.9 Major depressive disorder, single episode, unspecified; R53.83 Other fatigue; E66.9 Obesity, unspecified; Z68.43 Body mass index [BMI] 50.0-59.9, adult; Z79.899 Other long term (current) drug therapy
CPT/HCPCS: 99211

== ENCOUNTER → 2020-12-10 | Outpatient (CLI) | payer OTHER ==
--- NOTE | 2020-12-10 12:03 | PN ---
PROGRESS NOTE Leslie is a 40-year-old morbidly obese female patient who is coming in for annual check regarding obstructive sleep apnea. The patient has severe case of RD with AHI of 74 and she is currently on CPAP pressure of 13 cm of water. With ongoing pandemic, the patient has gained weight in the order of 8 pounds. The patient is currently up to 306 pounds. Nevertheless, her treatment is successful. She is using a Simplus full-face mask, medium size, and she is quite happy with the full face mask rather than nose mask. Based on the compliance data, the patient has been averaging around 6.9 hours of CPAP use per night/CPAP use for more than 4 hours is 28/30. Leak is around 14 L/minute. The patient's AHI is down to 1.2. Clinically she is doing well. No hypersomnia or sleepiness during the day. She is able to drive. Does not fall asleep while driving. She does not take any naps during the day. PHYSICAL EXAMINATION: VITAL SIGNS: BP is 132/79, pulse 84, respirations 12, temperature is 98.3. [place] score is 10. Saturation 97% on room air. GENERAL APPEARANCE: Calm and comfortable, obese. HEAD: Atraumatic, normocephalic. NECK: Supple. There is no JVD. No goiter or neck masses. Mallampati class 4. LUNGS: Clear, otherwise, diminished. HEART: Heart sounds are regular rate and rhythm. Normal S1, S2. No S3, S4. No murmurs. ABDOMEN: Soft, nontender. No organomegaly. EXTREMITIES: No edema. No cyanosis or clubbing. NEUROLOGIC: Awake and alert. There is no focal neurological deficit. IMPRESSION: 1. Obstructive sleep apnea severe. AHI of 74. Currently on CPAP pressure of 13. Treatment is successful. 2. Obesity with interval weight gain. Current weight is up to 306. 3. Hypersomnia, improved. Current [place] Score is 10. 4. On adequate sleep hygiene measures. PLAN: 1. Encourage weight loss. 2. Keep CPAP pressure at the level of 13. 3. The patient has a [employer]. 4. Continue using a Simplus full-face mask. 5. Involved in an exercise program and the patient will be encouraged to lose weight. 6. See me back in a year's time in followup, earlier if needed. Treatment is successful for now. MMODL / IJN: [id number] /
== END ==
LOC: SLEEP 10:51
PROVIDERS: ATTEND Internal Medicine Critical Care Medicine
DX: G47.33 Obstructive sleep apnea (adult) (pediatric) (principal); Z99.89 Dependence on other enabling machines and devices; E66.01 Morbid (severe) obesity due to excess calories

== ENCOUNTER → 2021-06-11 | Outpatient (CLI) | payer OTHER ==
[2021-06-11 07:50] VITALS: BP 149/79; PULSE 100; RESP 18; TEMP 97.5
--- NOTE | 2021-06-11 08:13 | P.PAINCN ---
History of Present Illness - Reason for Consult Consult date: 06/11/21 - History of Present Illness This is 41 years old male with a chronic history of severe low back pain, mainly on the right side, started more than 6 months ago, she denies any initiating event, the pain is constant and increases with any activity, interfere with the quality of life, the pain radiates to the right buttock area and the posterior aspect of her right leg, she denies any motor and sensory deficits, she denies any fever or night sweats, she is done 2 months of physical therapy, with minimal benefit, she continued to use meloxicam when necessary, and she had minimal benefit from it. Past Medical History Past Medical History: GERD/Reflux Additional Past Medical History / Comment(s): S1,L5 pain rt side History of Any Multi-Drug Resistant Organisms: None Reported Past Surgical History: Section, Cholecystectomy, Hernia Repair, Orthopedic Surgery Additional Past Surgical History / Comment(s): C SECTION X2 , ARTHROSCOPIC RIGHT KNEE , LEFT FINGER(POINTER) SURGERY. VENTRAL HERNIA REPAIR Past Anesthesia/Blood Transfusion Reactions: Postoperative Nausea & Vomiting (PONV) Smoking Status: Current every day smoker - Past Family History Mother Family Medical History: Cancer Additional Family Medical History / Comment(s): CERVICAL CANCER Medications and Allergies Home Medications Medication Instructions Recorded Confirmed Type Escitalopram Oxalate [Lexapro] 20 mg PO DAILY 10/11/19 06/05/21 History Famotidine [Pepcid] 40 mg PO DAILY 10/11/19 06/05/21 History Albuterol Inhaler (Mhu) [Ventolin 1 - 2 puff INHALATION RT-Q4H PRN 11/02/19 06/05/21 History Hfa Inhaler (Mhu)] EPINEPHrine (Auto Inject) [Epipen] 0.3 mg IM ONCE PRN 11/02/19 06/05/21 History Meloxicam (Unk Dose) 1 tab PO DAILY 06/05/21 06/05/21 History Allergies Allergy/AdvReac Type Severity Reaction Status Date / Time ibuprofen Allergy Anaphylaxis Verified 06/05/21 11:51 Physical Exam Vitals: Vital Signs Temp Pulse Resp BP Pulse Ox 06/11/21 07:44 97.5 F L 100 18 149/79 95 Physical Examinations : -Constitutiona : Cooperative , not in acute distress . -HEENT : nech : supple , no Lymphadenopathy , normal thyroid size . : eyes : no ptosis , no icterus, no photophobia . - neurologic : Cranial nerve II to XII intact , no focal neurological deffecit . -psychatric : alert , oriented X 3 , appropriate affect , intact judgment and insight . -Lymphatic : no Lymphadenopathy . - musculoskeltal : Lumber spine moter stegnth lower extremities ,thigh and legs 5/5 Right side , 5/5 Left side deep tendon reflexes : normal Knee Jerk , normal ankle Jerk lumber facet Loading Test =positive Right , positive Left Range of motion of the lumbar spine Flexion 30 degrees, extension 10 degrees strait leg raising test = positive at 60 degree on the right side ,and is negative on the left side Fabere test= negative bilaterally . Sever tenderness over the Sacroiliac joint on the Right only . Gaenslen test= positive right ,and negative left . Seated flexion test= positive right ,and negative Left . Distraction test= positive right , negative left Sacroiliac compression test= positive right , negative left Results Comments: MRI of the lumbar spine= L4 5 and L5-S1 lumbar degenerative disc disease, L3 4 L4 5 and L5-S1 lumbar facet arthropathy Assessment and Plan Plan: Assessment and plan=1-right sacroiliitis. 2-lumbar spondylosis with lumbar facet arthropathy. 3-lumbar degenerative disc disease. Patient could benefit from right-sided sacroiliac joint steroid injection under fluoroscopy guidance Time with Patient: Greater than 30 PQRS Measure Charge Sheet Measure #130: Documentation of Current Meds in Medical Chart: Patient's medications documented in chart Measure #226: Tobacco Use: Screen & Cessation Intervention: Pt screened for tobacco use AND intervention given Measure #111: Pneumonia Vaccination: Pneumococcal vaccine NOT administered or previously given Measure #47: Advance Care Plan: Advance care planning discussed & documented, pt chose/unable to give Measure #412: Opioid Treatment Agreement: No documentation of signed opioid treatment agreement Measure #408: Opioid Therapy Follow-up Evaluation: Patient had NO f/u eval minimum every 3 months during opioid therapy Measure #317: Preventitive Care & Scrn High Bld Press & F/U: Pre-hypertensive or hypertensive BP documented, pt will f/u with PCP Measure #128: Body Mass Index (BMI) Screening & Follow-up: BMI documented ABOVE normal parameters - f/u documented Measure #131: Pain Assessment & Follow-up: Pain positive & plan documented, Follow-up scheduled Measure #431: Unhealthy Alcohol Use Preventative Care & Scrn: Patient not identified as an unhealthy alcohol user Mode of Arrival: Ambulatory - Pain Location Buttock Non-Pharmacological Interventions: Exercise, Inactivity, Physical Therapy, Sitting Pharmacological Interventions: PRN Medication PQRS Narrative: Smoking Status Current every day smoker Blood Pressure 149/79 Pain Intensity [Buttock] 8 Scale Used Numeric (1 - 10) Hx Alcohol Use (MH) Yes Home Medications: Ambulatory Orders Escitalopram Oxalate [Lexapro] 20 mg PO DAILY 10/11/19 Famotidine [Pepcid] 40 mg PO DAILY 10/11/19 Albuterol Inhaler (Mhu) [Ventolin Hfa Inhaler (Mhu)] 1 - 2 puff INHALATION RT- Q4H PRN 11/02/19 EPINEPHrine (Auto Inject) [Epipen] 0.3 mg IM ONCE PRN 11/02/19 Meloxicam (Unk Dose) 1 tab PO DAILY 06/05/21
== END ==
LOC: PNWHC3 07:38
PROVIDERS: ATTEND Specialist
DX: M46.1 Sacroiliitis, not elsewhere classified (principal); M47.816 Spondylosis without myelopathy or radiculopathy, lumbar region; M51.36 Other intervertebral disc degeneration, lumbar region; F17.200 Nicotine dependence, unspecified, uncomplicated; Z88.6 Allergy status to analgesic agent
CPT/HCPCS: 99211

== ENCOUNTER 2021-08-07 08:03 | Day surgery (SDC) | payer OTHER ==
[2021-08-05 14:44] VITALS: BMI 50.7
[~2021-08-07 08:03] MED LIST changes: -DEXAMETHASONE SOD PHOSPHATE 10 MG/ML 1 ML VIAL IV ONE; -HEPARIN SODIUM,PORCINE 5,000 UNIT/ML 1 ML VIAL SQ ONE; -HYDROmorphone 0.5 MG/0.5 ML SYRINGE IVP PRN; -LIDOCAINE 1% 20 ML VIAL (10MG/ML) FOR IV START INTRADERMA PRN; -ONDANSETRON 4 MG/2 ML VIAL IVP ONE; -SCOPOLAMINE 1.5MG/72HR PATCH TRANSDERM ONE; -ceFAZolin 3 GM in SODIUM CHLORIDE 0.9% 100 ML IVPB ONE
[2021-08-07 08:19] VITALS: TEMP 97.3
[2021-08-07] MEDS ORDERED: LIDOCAINE 1% (10MG/ML) FOR IV START INTRADERMA ONE (08:21)
[2021-08-07] MEDS ORDERED: MIDAZOLAM 2 MG/2 ML VIAL ONE (08:30)
[2021-08-07] MEDS ORDERED: methylPREDNISolone ACETATE 40 MG/ML 1 ML VIAL ONE (08:30)
[2021-08-07] MEDS ORDERED: IOPAMIDOL M200 10 ML VIAL ONE (08:30)
[2021-08-07] MEDS ORDERED: .fentaNYL (PF) 50 MCG/ML AMP ONE (08:30)
--- NOTE | 2021-08-07 08:42 | P.PCN ---
Date of Procedure: 08/07/21 Description of Procedure: PREOPERATIVE DIAGNOSIS: Right-sided Sacroiliac joint dysfunction POSTOPERATIVE DIAGNOSIS: Right-sided Sacroiliac joint dysfunction. PROCEDURES: 1. Right-sided Sacroiliac joint steroid injection #1 out of 2 2. Sacroiliac joint arthrogram. SURGEON: Bobbi Sims ANESTHESIA: Local and IV sedation : Versed and fentanyl. EBL: None. Specimen removed: None Fluoroscopic image: saved to electronic medical records. PROCEDURE INDICATIONS: This patient with a history of chronic low back pain, and sacroiliac joint dysfunction. Patient tried conservative therapy. Came here for intervention management. PROCEDURE DESCRIPTION: The patient was seen and identified in the preoperative area. Risks, benefits, complications, and alternatives were discussed with the patient. The patient agreed to proceed with the procedure and signed the consent. IV was started, and vital signs were stable. Patient was taken to the OR and time out was completed. The patient was placed in the prone position on procedure table and a pillow was placed under the abdomen to reduce lumbar lordosis. The lumbosacral area was prepped and draped in the usual sterile fashion. Critical pause was taken. Vital signs were closely monitored during the procedure. For the right side, the fluoroscopic camera was placed in left oblique view and right SI joint lower pole was identified. Skin entry point was infiltrated with 1% lidocaine and 22-gauge 5 inch spinal needle was introduced into the inferior one-third of SI joint and after penetrating into the joint arthrogram was done. 0.5 ml of [id number] contrast was injected after negative aspiration for blood, and air and negative for paresthesia. Good spread of the contrast into the SI joint has been seen. Then again after negative aspiration of spinal fluid and blood and negative for neurological symptoms, 3 mL of a solution containing total 2 mL of 1% preservative-free lidocaine mixed with 40 mg of Depo-Medrol was injected. Needle was withdrawn intact. Skin was cleansed, and bandages were applied. COMPLICATIONS: None. DISPOSITION / PLANS: The patient was placed in a supine position and transferred to the recovery area in a stable condition for observation and was discharged from the recovery room after meeting discharge criteria. Home discharge instructions given to the patient by the staff. The patient was reexamined prior to discharge. The patient will schedule for follow-up visit with the pain clinic in 4 weeks duration.
[2021-08-07] MEDS ORDERED: IV FLUID CONTINUATION 1,000 ML IV ONE (08:43)
[2021-08-07 08:44] VITALS: RESP 18
[2021-08-07] MEDS ORDERED: LACTATED RINGERS 1,000 ML IV SCH (08:45)
[2021-08-07 09:01] VITALS: BP 116/72; PULSE 86
--- NOTE | 2021-08-07 10:05 | FL ---
EXAMINATION TYPE: FL guided pain mgmt statistic DATE OF EXAM: 08/07/2021 HISTORY: Fluoroscopy time 2 seconds of fluoroscopy provided. IMPRESSION: 1. Fluoroscopy time.
== END 2021-08-07 09:33 | disposition home or self-care (01) ==
LOC: ORPAIN 08:03
DX: M53.3 Sacrococcygeal disorders, not elsewhere classified (principal)
CPT/HCPCS: 27096; 81025; J2250; J1030; J3010; Q9966; G0260

== ENCOUNTER → 2021-09-01 | Outpatient (CLI) | payer OTHER ==
[2021-09-01 11:25] VITALS: BP 148/87; PULSE 97; RESP 18; TEMP 98.2
--- NOTE | 2021-09-01 19:12 | P.PN ---
Subjective Progress Note Date: 09/01/21 This is follow up visit for this 41 years old male with a chronic history of severe low back pain, mainly on the right side, started more than 6 months ago, she denies any initiating event, the pain is constant and increases with any activity, interfere with the quality of life, the pain radiates to the right buttock area and the posterior aspect of her right leg, she denies any motor and sensory deficits, she denies any fever or night sweats, she is done 2 months of physical therapy, with minimal benefit, she continued to use meloxicam when necessary, and she had minimal benefit from it. Recently we did right-sided sacroiliac joint steroid injection patient reported that she had 0 benefit from patient continued to do home exercise, and stretching at home, and she use a massager gone Physical Examinations : -Constitutiona : Cooperative , not in acute distress . -HEENT : nech : supple , no Lymphadenopathy , normal thyroid size . : eyes : no ptosis , no icterus, no photophobia . - neurologic : Cranial nerve II to XII intact , no focal neurological deffecit . -psychatric : alert , oriented X 3 , appropriate affect , intact judgment and insight . -Lymphatic : no Lymphadenopathy . - musculoskeltal : Lumber spine moter stegnth lower extremities ,thigh and legs 5/5 Right side , 5/5 Left side deep tendon reflexes : normal Knee Jerk , normal ankle Jerk lumber facet Loading Test =positive Right , positive Left Range of motion of the lumbar spine Flexion 30 degrees, extension 10 degrees strait leg raising test = positive at 60 degree on the right side ,and is negative on the left side Fabere test= negative bilaterally . Sever tenderness over the Sacroiliac joint on the Right only . Gaenslen test= positive right ,and negative left . Seated flexion test= positive right ,and negative Left . Distraction test= positive right , neg ative left Sacroiliac compression test= positive right , negative left Results MRI of the lumbar spine= L4 5 and L5-S1 lumbar degenerative disc disease, L3 4 L4 5 and L5-S1 lumbar facet arthropathy Assessment and plan= 1-right sacroiliitis. 2-lumbar spondylosis with lumbar facet arthropathy. 3-lumbar degenerative disc disease. Patient had no benefit from right-sided sacroiliac joint steroid injection. Patient could benefit from diagnostic medial branch block lumbar area of the right side at L4 5 and L5-S1 PQRS Measure Charge Sheet Measure #130: Documentation of Current Meds in Medical Chart: Patient's medications documented in chart Measure #226: Tobacco Use: Screen & Cessation Intervention: Pt screened for tobacco use AND intervention given Measure #111: Pneumonia Vaccination: Pneumococcal vaccine NOT administered or previously given Measure #47: Advance Care Plan: Advance care planning discussed & documented, pt chose/unable to give Measure #412: Opioid Treatment Agreement: No documentation of signed opioid kiley tment agreement Measure #408: Opioid Therapy Follow-up Evaluation: Patient had NO f/u eval minimum every 3 months during opioid therapy Measure #317: Preventitive Care & Scrn High Bld Press & F/U: Pre-hypertensive or hypertensive BP documented, pt will f/u with PCP Measure #128: Body Mass Index (BMI) Screening & Follow-up: BMI documented ABOVE normal parameters - f/u documented Measure #131: Pain Assessment & Follow-up: Pain positive & plan documented, Follow-up scheduled Measure #431: Unhealthy Alcohol Use Preventative Care & Scrn: Patient not identified as an unhealthy al Objective - Vital Signs Vital signs: Vital Signs Temp 98.2 F 09/01/21 11:15 Pulse 97 09/01/21 11:15 Resp 18 09/01/21 11:15 BP 148/87 09/01/21 11:15 Pulse Ox 97 09/01/21 11:15
== END ==
LOC: PNWHC3 10:52
PROVIDERS: ATTEND Specialist
DX: M46.1 Sacroiliitis, not elsewhere classified (principal); M47.816 Spondylosis without myelopathy or radiculopathy, lumbar region; M51.36 Other intervertebral disc degeneration, lumbar region; F17.200 Nicotine dependence, unspecified, uncomplicated; Z88.6 Allergy status to analgesic agent
CPT/HCPCS: 99211

== ENCOUNTER 2021-10-24 07:03 | Day surgery (SDC) | payer OTHER ==
[2021-10-24] MEDS: LACTATED RINGERS 1,000 ML IV SCH ×2 (07:18→08:08)
[2021-10-24 07:26] VITALS: TEMP 96.9
[2021-10-24] MEDS ORDERED: methylPREDNISolone ACETATE 40 MG/ML 1 ML VIAL ONE (08:11)
[2021-10-24] MEDS ORDERED: MIDAZOLAM 2 MG/2 ML VIAL ONE (08:11)
[2021-10-24] MEDS ORDERED: fentaNYL (PF) 50 MCG/ML 2 ML AMP ONE (08:11)
[2021-10-24] MEDS ORDERED: ROPIVACAINE 5MG/ML 20ML VIAL ONE (08:11)
--- NOTE | 2021-10-24 08:23 | P.PCN ---
Date of Procedure: 10/24/21 Procedure(s) Performed: PREOPERATIVE DIAGNOSIS : 1- Lumbar spondylosis with Facet Arthropathy without myelopathy . 2- Lumber degenerative disc disease. 3-right sacroiliitis POSTOPERATIVE DIAGNOSIS: 1- Lumbar spondylosis with Facet Arthropathy without myelopathy . 2- Lumber degenerative disc disease. 3-right sacroiliitis PROCEDURE: Diagnostic Right L3 , L4 , and L5 medial branch block under fluoroscopy guidance(fluoroscopy images available in the radiology Department ) ( To target the facet joint between right L4-5 , and L5-S1 )# 1st ANESTHESIA:, Monitored anesthesia care as per anesthesia department.. EBL: Minimal COMPLICATION: None PROCEDURE INDICATION: Chronic low back pain secondary to Facet arthropathy unresponsive to conservative treatment. PROCEDURE DESCRIPTION: the patient was seen and identified in the preop holding area , risks and benefits and possible complications of the procedure and alternative were discussed with the patient, and the patient agreed to proceed with the procedure and signed the consent and vital signs monitored during the procedure and fluoroscopy was used to maximize the benefit and accuracy of the needle placement, and sedation was given to decrease patient anxiety, patient was taken to the procedure room and placed in prone position vital signs monitored in the back prepped with chlorhexidine X3 then under strict sterile technique using a right oblique fluoroscopy ,the junction of the transverse process and the superior articulating process of the right L3 , L4 , and L5 vertebra which corresponding to the fluoroscopy image of the eye of the Andrews dog on the block side for the medial branches and subsequently , after local infiltration of skin and subcu tissuies with Ropivacaine 0.5 % , one mL at each level ,then 22-gauge 5 inches long Quincke-type needles , 3 needle was used , each one of them placed at the junction of the base of the transverse process and the superior articular process at the appropriate level, and the needle was advanced until the periosteum contacted, needle placement confirmed with AP oblique and lateral view and after appropriate needle placement confirmed, and after negative aspiration for heme and CSF and there was no paresthesia 1-1/2 mL of Ropivacaine 0.5% mixed with 40 mg Depo-Medrol , then half mL injected at each level after negative aspiration the needle subsequently removed At the end of the procedure and the needles removed and a bandage applied after the skin was cleaned the cleaning solution patient taken to recovery room in stable condition and monitors in the recovery room for 20-30 minutes and discharged home in stable condition after discharge criteria met and patient will follow up with the pain clinic in 2-4 weeks
[2021-10-24] MEDS ORDERED: IV FLUID CONTINUATION 1,000 ML IV ONE (08:29)
[2021-10-24 08:31] VITALS: RESP 18
[2021-10-24 08:47] VITALS: BP 127/78; PULSE 78
--- NOTE | 2021-10-24 09:32 | FL ---
EXAMINATION TYPE: FL guided pain mgmt statistic DATE OF EXAM: 10/24/2021 HISTORY: Fluoroscopy time 8 seconds of fluoroscopy provided. IMPRESSION: 1. Fluoroscopy time.
== END 2021-10-24 08:55 | disposition home or self-care (01) ==
LOC: ORPAIN 07:03
PROVIDERS: ATTEND Specialist
DX: M25.9 Joint disorder, unspecified (principal); G89.29 Other chronic pain; M47.816 Spondylosis without myelopathy or radiculopathy, lumbar region; M51.36 Other intervertebral disc degeneration, lumbar region; M46.1 Sacroiliitis, not elsewhere classified; J45.909 Unspecified asthma, uncomplicated; F17.210 Nicotine dependence, cigarettes, uncomplicated; F32.A Depression, unspecified; K21.9 Gastro-esophageal reflux disease without esophagitis; E66.01 Morbid (severe) obesity due to excess calories; Z68.43 Body mass index [BMI] 50.0-59.9, adult; Z98.891 History of uterine scar from previous surgery; Z90.49 Acquired absence of other specified parts of digestive tract; Z98.890 Other specified postprocedural states; Z88.6 Allergy status to analgesic agent; Z79.1 Long term (current) use of non-steroidal anti-inflammatories (NSAID); Z79.899 Other long term (current) drug therapy
CPT/HCPCS: 81025; 64493; 64494; J2250; J1030; J3010; J2795

== ENCOUNTER → 2021-11-10 | Outpatient (CLI) | payer OTHER ==
[2021-11-10 08:47] VITALS: BP 123/80; PULSE 97; RESP 18; TEMP 97.8
--- NOTE | 2021-11-10 08:47 | P.PN ---
Subjective Progress Note Date: 11/10/21 Principal diagnosis: A 41 yr old female with a history of severe and chronic low back pain secondary to lumbar degenerative disc diseases and lumbar spondylosis with facet arthropathy presents today for evaluation status post facet block of the right medial branches L4-L5, L5-S1. Patient states she experienced 90% pain relief for one day status post procedure. Pain level is currently at 6 out of 10 in intensity, dull, achy, constant in the lower right aspect of the lumbar spine with radiation of tingling and numbness down the right lower extremity. Pain is provoked by sitting for periods of 30 minutes or more or standing for periods of 15 minutes or more. Pain is alleviated with medications, injections, physical therapy in 2020, chiropractic treatment one month ago, home exercise regimen, repositioning and rest. Interventional pain procedures completed include facet block of the medial branches right L3 to L5 Patient is currently on OTC Tylenol arthritis Patient denies any side effects of the medication(s), denies excessive drowsiness or sleepiness, denies suicidal ideation and reports that the current pain medication is helping to control the pain and improve activities of daily living. Patient denies any motor or sensory deficits. Patient denies any fever or night sweats, denies any change in the bowel movements or urination. Physical Examination: -Constitutional: Cooperative. Not in acute distress . -HEENT: Neck is supple. No lymphadenopathy. No thyromegaly. Normal thyroid size. Eyes: No ptosis , no icterus, no photophobia. ENT: No auditory deficits. Normal oropharynx. No Thrush. - Respiratory: Chest clear to auscultations bilaterally. No wheezing. No rhonchi. - Cardiovascular: Regular rate and rhythm. S1 / S2 , no S3 , no S4. - Gastrointestinal: Abdomen soft no tenderness. Bowel sounds positive in all four quadrants. No organomegaly. - Genitourinary: Deferred. - Neurologic: Cranial nerve II to XII intact. No focal neurological deficits. - Psychatric: Alert & oriented x 3. Matching mood & appropriate affect. Judgment and insight intact. - Lymphatic: No Lymphadenopathy. - Musculoskeletal: Cervical spine: Muscle bulk/ tone/ strength in the bilateral upper extremities normal. Facet loading test cervical area positive. Lumbar spine: Motor bulk/ tone/ strength lower extremities , thigh and legs : 5/5 Deep tendon reflexes : Normal Knee Jerk. Normal Ankle Jerk . Vertebral body tenderness to palpation over Lumbar Facet Loading Test positive over right L4-L5, L5-S1 with jump reflex Straight Leg Raise: positive at 30 degrees right side/ left side Gaenslen's Test positive over right Sacral spine : Severe tenderness over the Sacroiliac joint: right side / left side Range of motion: Flexion of the lumbar spine <60 degrees Range of motion: Extension of the lumbar spine <20 degrees Gaenslen's Test positive Herminio test: positive right side / left side Assessment and plan: Chronic low back pain secondary to lumbar degenerative disc disease , lumbar spondylosis with facet arthropathy without myelopathy Recommendation of facet block of the medial branches right L3 to L5. May need an additional procedure, up through RFA, for optimal pain relief. Risks, benefits of procedure discussed and patient verbalized understanding. Denies aspirin or anticoagulants use. Denies medical history of diabetes mellitus. All patient questions answered MAPS reviewed and it was appropriate. I have spent 31 minutes on patient care today. Dr Padilla was available by phone for the evaluation of this patient. The time was used to review the medical records including relevant urine studies and Prescription history (MAPs), review of the available imaging, evaluation and examination of the patient, coordination of care with the medical staff and if applicable referring physicians, as well as creation of the medical record PQRS Measure Charge Sheet Mode of Arrival: Ambulatory - Pain Location Lower Back Non-Pharmacological Interventions: Chiropractic Treatment, Home Exercise, Inactivity, Physical Therapy, Sitting, Stretching Pharmacological Interventions: Block, PRN Medication PQRS Narrative: Smoking Status Current every day smoker Blood Pressure 123/80 Pain Intensity [Lower Back] 6 Scale Used Numeric (1 - 10) Hx Alcohol Use (MH) Yes Home Medications: Ambulatory Orders Famotidine [Pepcid] 40 mg PO QAM 10/11/19 Albuterol Inhaler (Mhu) [Ventolin Hfa Inhaler (Mhu)] 1 - 2 puff INHALATION RT- Q4H PRN 11/02/19 EPINEPHrine (Auto Inject) [Epipen] 0.3 mg IM ONCE PRN 11/02/19 Meloxicam [Mobic] 15 mg PO QAM 06/05/21 Escitalopram [Lexapro] 20 mg PO QAM 08/27/21
== END ==
LOC: PNWHC3 08:23
PROVIDERS: ATTEND Physician Assistant Medical
DX: M51.36 Other intervertebral disc degeneration, lumbar region (principal); M47.816 Spondylosis without myelopathy or radiculopathy, lumbar region; G89.29 Other chronic pain; F17.200 Nicotine dependence, unspecified, uncomplicated; Z88.6 Allergy status to analgesic agent
CPT/HCPCS: 99211

== ENCOUNTER → 2021-12-25 | Day surgery (SDC) | payer OTHER ==
--- NOTE | 2021-12-25 07:43 | P.PN ---
Progress Note - Text Progress Note Date: 12/25/21 This is 41 years old female with a chronic history of severe low back pain, she is diagnosed WITH lumbar spondylosis with lumbar facet arthropathy, previously we have done a right-sided medial branch block at L4 5 and L5-S1 levels, patient supposed to be scheduled for repeat injection, but there was a mistake by aborting them. She is scheduled to have RFA of the medial branch, and to proceed with RFA we need to have 2 positive diagnostic block (we have done only one agnostic block ), and because of insurance issues , we have to get prior authorization ,before we can proceed with the second diagnostic block, which cannot be done today, for this reason, we will try to get prior authorization, then patient will be boarded for ,repeat injection, diagnostic medial branch block right side at L4 5 and L5-S1, today ,I have cancelle the procedure
== END ==
LOC: ORPAIN 06:35
PROVIDERS: ATTEND Specialist
DX: M47.816 Spondylosis without myelopathy or radiculopathy, lumbar region (principal); Z53.9 Procedure and treatment not carried out, unspecified reason

== ENCOUNTER 2022-01-16 10:08 | Day surgery (SDC) | payer OTHER ==
[2022-01-15 10:38] VITALS: BMI 50.7
[~2022-01-16 10:08] MED LIST changes: +LIDOCAINE 1% (10MG/ML) FOR IV START INTRADERMA PRN
[2022-01-16 10:35] VITALS: RESP 18; TEMP 96.1
[2022-01-16] MEDS ORDERED: MIDAZOLAM 2 MG/2 ML VIAL ONE (10:43)
[2022-01-16] MEDS ORDERED: ROPIVACAINE 5MG/ML 20ML VIAL ONE (10:43)
[2022-01-16] MEDS ORDERED: fentaNYL (PF) 50 MCG/ML 2 ML AMP ONE (10:43)
[2022-01-16] MEDS ORDERED: methylPREDNISolone ACETATE 40 MG/ML 1 ML VIAL ONE (10:43)
--- NOTE | 2022-01-16 10:57 | P.PCN ---
Date of Procedure: 01/16/22 Procedure(s) Performed: PREOPERATIVE DIAGNOSIS : 1- Lumbar spondylosis with Facet Arthropathy without myelopathy . 2- Lumber degenerative disc disease. 3-right sacroiliitis POSTOPERATIVE DIAGNOSIS: 1- Lumbar spondylosis with Facet Arthropathy without myelopathy . 2- Lumber degenerative disc disease. 3-right sacroiliitis PROCEDURE: Diagnostic Right L3 , L4 , and L5 medial branch block under fluoroscopy guidance(fluoroscopy images available in the radiology Department ) ( To target the facet joint between right L4-5 , and L5-S1 )#2nd ANESTHESIA:, Monitored anesthesia care as per anesthesia department.. EBL: Minimal COMPLICATION: None PROCEDURE INDICATION: Chronic low back pain secondary to Facet arthropathy unresponsive to conservative treatment. PROCEDURE DESCRIPTION: the patient was seen and identified in the preop holding area , risks and benefits and possible complications of the procedure and alternative were discussed with the patient, and the patient agreed to proceed with the procedure and signed the consent and vital signs monitored during the procedure and fluoroscopy was used to maximize the benefit and accuracy of the needle placement, and sedation was given to decrease patient anxiety, patient was taken to the procedure room and placed in prone position vital signs monitored in the back prepped with chlorhexidine X3 then under strict sterile technique using a right oblique fluoroscopy ,the junction of the transverse process and the superior articulating process of the right L3 , L4 , and L5 vertebra which corresponding to the fluoroscopy image of the eye of the Andrews dog on the block side for the medial branches and subsequently , after local infiltration of skin and subcu tissuies with Ropivacaine 0.5 % , one mL at each level ,then 22-gauge 5 inches long Quincke-type needles , 3 needle was used , each one of them placed at the junction of the base of the transverse process and the superior articular process at the appropriate level, and the needle was advanced until the periosteum contacted, needle placement confirmed with AP oblique and lateral view and after appropriate needle placement confirmed, and after negative aspiration for heme and CSF and there was no paresthesia 1-1/2 mL of Ropivacaine 0.5% mixed with 40 mg Depo-Medrol , then half mL injected at each level after negative aspiration the needle subsequently removed At the end of the procedure and the needles removed and a bandage applied after the skin was cleaned the cleaning solution patient taken to recovery room in stable condition and monitors in the recovery room for 20-30 minutes and discharged home in stable condition after discharge criteria met and patient will follow up with the pain clinic in 2-4 weeks
--- NOTE | 2022-01-16 11:07 | FL ---
EXAMINATION TYPE: FL guided pain mgmt statistic DATE OF EXAM: 01/16/2022 HISTORY: Fluoroscopy time 14 seconds of fluoroscopy provided. IMPRESSION: 1. Fluoroscopy time.
[2022-01-16 11:19] VITALS: BP 118/55; PULSE 82
[2022-01-16] MEDS ORDERED: IV FLUID CONTINUATION 1,000 ML IV ONE (11:19)
== END 2022-01-16 12:00 | disposition home or self-care (01) ==
LOC: ORPAIN 10:08
PROVIDERS: ATTEND Specialist
DX: M47.816 Spondylosis without myelopathy or radiculopathy, lumbar region (principal); G89.29 Other chronic pain; M46.1 Sacroiliitis, not elsewhere classified
CPT/HCPCS: 64493; 64494; 81025; J2250; J1030; J3010; J2795

== ENCOUNTER → 2022-02-16 | Outpatient (CLI) | payer OTHER ==
[2022-02-16 12:42] VITALS: BP 116/71; PULSE 90; RESP 18; TEMP 97.4
--- NOTE | 2022-02-16 12:51 | P.PAINPG ---
Objective - Vital Signs Vital signs: Vital Signs Temp 97.4 F L 02/16/22 12:34 Pulse 90 02/16/22 12:34 Resp 18 02/16/22 12:34 BP 116/71 02/16/22 12:34 Pulse Ox 97 02/16/22 12:34 FiO2 PQRS Measure Charge Sheet Mode of Arrival: Ambulatory Comment: A 41 yr old female with a history of severe and chronic low back pain secondary to lumbar degenerative disc diseases and lumbar spondylosis with facet arthropathy presents today for evaluation status post R facet blocks and we'll branches L4-L5, L5-S1 #2. She states she experienced 80% pain relief for 2 weeks status post procedure. Pain level is currently at 9 out of 10 in intensity, dull, achy in the right lower aspect of the lumbar spine where it meets the tailbone with radiation of sharp pain down the right lower extremity. Pain is provoked by bending, lifting and twisting. Pain is alleviated with medications, topicals, injections, physical therapy which ended May 2021, chiropractic treatment as needed, home exercise regimen as tolerated, repos itioning and rest. Interventional pain procedures completed include R MBB L4-L5, L5-S1 2 Patient is currently on OTC Tylenol arthritis Patient denies any side effects of the medication(s), denies excessive drowsiness or sleepiness, denies suicidal ideation and reports that the current pain medication is helping to control the pain and improve activities of daily living. Patient denies any motor or sensory deficits. Patient denies any fever or night sweats, denies any change in the bowel movements or urination. Physical Examination: -Constitutional: Cooperative. Not in acute distress . -HEENT: Neck is supple. No lymphadenopathy. No thyromegaly. Normal thyroid size. Eyes: No ptosis , no icterus, no photophobia. ENT: No auditory deficits. Normal oropharynx. No Thrush. - Respiratory: Chest clear to auscultations bilaterally. No wheezing. No rhonchi. - Cardiovascular: Regular rate and rhythm. S1 / S2 , no S3 , no S4. - Gastrointestinal: Abdomen soft no tenderness. Bowel sounds positive in all four quadrants. No organomegaly. - Genitourinary: Deferred. - Neurologic: Cranial nerve II to XII intact. No focal neurological deficits. - Psychatric: Alert & oriented x 3. Matching mood & appropriate affect. Judgment and insight intact. - Lymphatic: No Lymphadenopathy. - Musculoskeletal: Cervical spine: Muscle bulk/ tone/ strength in the bilateral upper extremities normal Vertebral body tenderness to palpation over Facet loading test positive Thoracic spine Muscle bulk / tone/ strength in the bilateral paraspinal muscles normal Vertebral body tender to palpation over Facet loading test positive Lumbar spine: Motor bulk/ tone/ strength lower extremities , thigh and legs : 5/5 Deep tendon reflexes : Normal Knee Jerk. Normal Ankle Jerk . Vertebral body tenderness to palpation over R L4-L5, L5-S1 with accompanied paraspinal tenderness Lumbar Facet Loading Test positive Straight Leg Raise: positive at 30 degrees right side/ left side Gaenslen's Test positive Sacral spine : Severe tenderness over the Sacroiliac joint: right side / left side Range of motion: Flexion of the lumbar spine <60 degrees Range of motion: Extension of the lumbar spine <20 degrees Gaenslen's Test positive Bobby's Test positive Herminio test: positive right side / left side Thigh Thrust Test Sacral Thrust Test Assessment and plan: Chronic low back pain secondary to lumbar degenerative disc disease , lumbar spondylosis with facet arthropathy without myelopathy Recommendation of R RFA L4-L5, L5-S1. Patient exhibited sufficient and satisfactory pain relief with prior facet blocks of the medial branches. Risks, benefits of procedure discussed and pt verbalized understanding. Denies anticoagulant use or medical history of diabetes. All patient questions answered MAPS reviewed and it was appropriate. I have spent 31 minutes on patient care today. Dr Padilla was available by phone for the evaluation of this patient. The time was used to review the medical records including relevant urine studies and Prescription history (MAPs), review of the available imaging, evaluation and examination of the patient, coordination of care with the medical staff and if applicable referring physicians, as well as creation of the medical record - Pain Location Lower Back Non-Pharmacological Interventions: Chiropractic Treatment, Home Exercise, Inactivity, Physical Therapy, Position/Reposition, Stretching Pharmacological Interventions: Block, Epidural, PRN Medication, Topical Medication PQRS Narrative: Smoking Status Current every day smoker Blood Pressure 116/71 Pain Intensity [Lower Back] 9 Scale Used Numeric (1 - 10) Hx Alcohol Use (MH) Yes Home Medications: Ambulatory Orders Famotidine [Pepcid] 40 mg PO QAM 10/11/19 Albuterol Inhaler (Mhu) [Ventolin Hfa Inhaler (Mhu)] 1 - 2 puff INHALATION RT- Q4H PRN 11/02/19 EPINEPHrine (Auto Inject) [Epipen] 0.3 mg IM ONCE PRN 11/02/19 Meloxicam [Mobic] 15 mg PO QAM 06/05/21 Escitalopram [Lexapro] 20 mg PO QAM 08/27/21 Controlled Substance Measures - Controlled Substance Measures Is patient prescribed a controlled substance at discharge?: No
== END ==
LOC: PNWHC3 12:20
PROVIDERS: ATTEND Specialist
DX: M51.36 Other intervertebral disc degeneration, lumbar region (principal); M47.816 Spondylosis without myelopathy or radiculopathy, lumbar region; G89.29 Other chronic pain; Z88.6 Allergy status to analgesic agent; F17.200 Nicotine dependence, unspecified, uncomplicated
CPT/HCPCS: 99211

== ENCOUNTER 2022-03-27 07:18 | Day surgery (SDC) | payer OTHER ==
[2022-03-26 11:30] VITALS: BMI 50.7
[2022-03-27] MEDS ORDERED: LACTATED RINGERS 1,000 ML IV ONE (07:39)
[2022-03-27 07:40] VITALS: TEMP 97.8
[2022-03-27] MEDS ORDERED: ROPIVACAINE 5 MG/ML 20 ML AMPULE ONE (08:00)
[2022-03-27] MEDS ORDERED: LIDOCAINE 2% INJ 20 MG/ML (2 ML VIAL) ONE (08:00)
[2022-03-27] MEDS ORDERED: TRIAMCINOLONE ACETONIDE 40 MG/ML 1 ML VIAL ONE (08:00)
[2022-03-27] MEDS ORDERED: fentaNYL (PF) 50 MCG/ML 2 ML AMP ONE (08:00)
[2022-03-27] MEDS ORDERED: MIDAZOLAM 2 MG/2 ML VIAL ONE (08:00)
--- NOTE | 2022-03-27 08:03 | P.PCN ---
Date of Procedure: 03/27/22 Surgeon: Lisa Olivas Pathology: none sent Condition: stable Disposition: PACU Description of Procedure: PREOPERATIVE DIAGNOSIS: Lumbar spondylosis without myelopathy, morbid obesity POSTOPERATIVE DIAGNOSIS: Lumbar spondylosis without myelopathy,morbid obesity PROCEDURES : Rt Radiofrequency thermocoagulation L4-L5, and L5-S1 medial branch, with fluoroscopic guidance ANESTHESIA: IV moderate conscious sedation with versed and fentanyl by the anesthesia Department and local infiltration with lidocaine 1% 5 ml Physician:Lisa Olivas MD EBL: Minimal PROCEDURE INDICATION: The patient with low back pain secondary to lumbar facet arthropathy who had significant relief of pain with previous diagnostic lumbar medial branch block with Ropivacaine0.5%. PROCEDURE DESCRIPTION / TECHNIQUE: The patient was seen and identified in the preoperative area. Risks, benefits, complications, including but not limited to risk of infection ,bleeding , allergic reactions to the medications and no comp lete pain relief , and alternatives were discussed with the patient, the patient agreed to proceed with the procedure and signed the consent. IV was started. Vital signs remained stable throughout the procedure. Patient was taken to the OR and time out was completed. The patient was placed in the prone position on the procedure table. The lumber area was prepped and draped in the usual sterile fashion. . Vital signs were closely monitored during the procedure .IV sedation was used during the procedure to decrease patients anxiety. The target points were identified as follows: For the L5-S1 level which corresponds to the dorsal ramus of L5 the target point was at the superior medial aspect of the sacral ala on the Rt side of the spine on the AP view of fluoroscopy and for the L3, and L4 medial branches the target points were at the connection between the transverse process and the superior articular process of L4, and L5 vertebra respectively on the Rt oblique view of fluoroscopy. skin was marked, and localized with 1% lidocaineat these points. Subsequently, an 18 [id number] radiofrequency needles with a 10-mm curved active tips were advanced guided by fluoroscopy to each of the target points mentioned above in a superior medial direction to get the active tips as parallel as possible to the medial branches tracks. AP, oblique, and lateral views of fluoroscopy were used to verify needle tips position. Each level then underwent motor testing at 2.5 Hz and 0 to 3 volt with local stimulation, but no radicular symptoms down the legs. I then injected 1 mL of lidocaine 1% in each needle before starting radiofrequency thermocoagulation at 80 degrees celsius for 90 seconds. After that I injected 1 ml of PF Ropivacaine 0.5%(3 mls) with 40 mg of Kenalog, 1 mL of this mixture was given in each needle before taking the needles out intact. Then the left side with the same levels was done in the same manner. At the end of the procedure, the skin was cleansed and bandages were applied. A copy of needle placement fluoroscopy was saved on the C-arm machine. COMPLICATIONS: No acute complications. DISPOSITION / PLANS: The patient was placed in a supine position and transferred to the recovery area in a stable condition for observation and was discharged from the recovery room after meeting discharge criteria. Home discharge instructions given to the patient by the staff. The patient was reexamined prior to discharge. The patient will schedule a follow up in the clinic in 2-4 weeks.
[2022-03-27] MEDS ORDERED: IV FLUID CONTINUATION 700 ML IV ONE (08:28)
[2022-03-27 08:41] VITALS: RESP 16
--- NOTE | 2022-03-27 08:43 | FL ---
Fluoroscopy HISTORY: Pain 14 seconds fluoroscopy time supplied to the referring clinician. 3 intraoperative C-arm images docum ent the procedure. See dictated report from anesthesia.
[2022-03-27 09:06] VITALS: BP 138/68; PULSE 80
== END 2022-03-27 09:09 | disposition home or self-care (01) ==
LOC: ORPAIN 07:18
PROVIDERS: ATTEND Anesthesiology
DX: M47.816 Spondylosis without myelopathy or radiculopathy, lumbar region (principal); E66.01 Morbid (severe) obesity due to excess calories; Z68.43 Body mass index [BMI] 50.0-59.9, adult; Z88.6 Allergy status to analgesic agent; F17.200 Nicotine dependence, unspecified, uncomplicated; F32.A Depression, unspecified; K21.9 Gastro-esophageal reflux disease without esophagitis; Z79.1 Long term (current) use of non-steroidal anti-inflammatories (NSAID); Z79.899 Other long term (current) drug therapy
CPT/HCPCS: 81025; 64635; 64636; J2250; J3301; J2001 ×2; J3010; J2795

== ENCOUNTER → 2022-04-15 | Outpatient (CLI) | payer OTHER ==
[2022-04-15 11:10] VITALS: BP 140/74; PULSE 95; RESP 16
--- NOTE | 2022-04-15 15:27 | P.PAINPG ---
PQRS Measure Charge Sheet Comment: A 42 yr old female with a history of severe and chronic low back pain secondary to lumbar degenerative disc diseases and lumbar spondylosis with facet arthropathy and BL Sacroiliitis presents today for evaluation s/p R RFA L3-L5. Pt states she experienced 90% pain relief s/p procedure. Pain level is curre ntly at 6/10 in intensity, constant, achy/ sharp in character in the lower aspect of her lumbar spine where it meets her L tailbone w shooting towards the L glutes. Pain is provoked by sitting for periods of 30 min or more. Pain is alleviated with medications (Mobic), injections in the past, PT years ago, chiropractic treatments last in Sep 2021 but is limited to 18 per 12 mo period, repositioning and rest. Interventional pain procedures completed include R RFA L3-L5 Patient is currently on Mobic Patient denies any side effects of the medication(s), denies excessive drowsiness or sleepiness, denies suicidal ideation and reports that the current pain medication is helping to control the pain and improve activities of daily living. Patient denies any motor or sensory deficits. Patient denies any fever or night sweats, denies any change in the bowel movements or urination. Physical Examination: -Constitutional: Cooperative. Not in acute distress . - Neurologic: Cranial nerve II to XII intact. No focal neurological deficits. - Psychatric: Alert & oriented x 3. Matching mood & appropriate affect. Judgment and insight intact. - Musculoskeletal: Cervical spine: Muscle bulk/ tone/ strength in the bilateral upper extremities normal Vertebral body tenderness to palpation over Spurling test positive Distraction test positive Facet loading test positive Thoracic spine Muscle bulk / tone/ strength in the bilateral paraspinal muscles normal Vertebral body tender to palpation over Facet loading test positive Lumbar spine: Motor bulk/ tone/ strength lower extremities , thigh and legs : 5/5 Deep tendon reflexes : Normal Knee Jerk. Normal Ankle Jerk . Vertebral body tenderness to palpation over Lumbar Facet Loading Test positive Straight Leg Raise: positive at 30 degrees right side/ left side Gaenslen's Test positive Sacral spine : Severe tenderness over the Sacroiliac joint: right side / left side Range of motion: Flexion of the lumbar spine <60 degrees Range of motion: Extension of the lumbar spine <20 degrees Gaenslen's Test positive on the L Herminio test: positive right side < left side Thigh Thrust Test L side +L Sacral Thrust Test Assessment and plan: Chronic low back pain secondary to lumbar degenerative disc disease , lumbar spondylosis with facet arthropathy without myelopathy, BL Sacroiliitis Recommendation of L SI joint injection. May need a series , up to every 3 mo, for optimal pain relief. Risks, benefits of procedure discussed and pt verbalized understanding. Denies anticoagulant use or medical history of diabetes. All patient questions answered MAPS reviewed and it was appropriate. I have spent less than 30 minutes on patient care today. Dr Padilla was available by phone for the evaluation of this patient. The time was used to review the medical records including relevant urine studies and Prescription history (MAPs), review of the available imaging, evaluation and examination of the patient, coordination of care with the medical staff and if applicable referring physicians, as well as creation of the medical record PQRS Narrative: Smoking Status Current every day smoker Hx Alcohol Use (MH) Yes Home Medications: Ambulatory Orders Famotidine [Pepcid] 40 mg PO QAM 10/11/19 Albuterol Inhaler [Ventolin Hfa Inhaler] 1 - 2 puff INHALATION RT-Q4H PRN 11/02 EPINEPHrine (Auto Inject) [Epipen] 0.3 mg IM ONCE PRN 11/02/19 Meloxicam [Mobic] 15 mg PO QAM 06/05/21 Escitalopram [Lexapro] 20 mg PO QAM 08/27/21 Controlled Substance Measures - Controlled Substance Measures Is patient prescribed a controlled substance at discharge?: No
== END ==
LOC: PNWHC3 10:52
PROVIDERS: ATTEND Specialist
DX: G89.29 Other chronic pain (principal); M51.36 Other intervertebral disc degeneration, lumbar region; M47.816 Spondylosis without myelopathy or radiculopathy, lumbar region; M46.1 Sacroiliitis, not elsewhere classified; F17.200 Nicotine dependence, unspecified, uncomplicated; Z88.6 Allergy status to analgesic agent
CPT/HCPCS: 99211

== ENCOUNTER → 2022-04-21 | Outpatient (CLI) | payer OTHER ==
--- NOTE | 2022-04-21 14:40 | P.PN ---
Subjective Progress Note Date: 04/21/22 04/21/2022, I'm seeing the patient for a follow-up regarding obstructive sleep apnea. The patient is 41 years old and the patient has been diagnosed having severe RD with an AHI of 74 and the patient is currently on a CPAP at a pressure of 13 cm of water. The patient continues to benefit from CPAP therapy and the patient seems to be committed to long-term treatment. She has already seen the benefit that she continues to see the benefit of the patient's sleep quality is much better while on treatment and the patient would wake up much more refreshed and alert during the day while on treatment. No snoring while on treatment. Since her last evaluation approximately a year ago, her weight went up from 306 pounds to 213 pounds. She attributes this to depression and the patient has been started on Lexapro. I checked her compliance evaluation and data and over the past 30 days the patient has utilized the machine 28 out of 30 days and the patient has achieved more than 4 hours 28 out of 30 days averaging around 7.6 hours per night. Her leak around the mask in order of 15 L per minute and her AHI is down to 0.9. She has no specific movement otherwise. She is using the Airfit P10 and medium size nasal pillows. No morning headaches. No chest pain. No shortness of breath. No angina. No palpitations. No cardiac arrhythmias. Objective - Exam BP is 135/83, pulse is 106, respiration is 16 and temperature is 98.3 and oxygen saturation 96% on room air. Height is 5 feet 4 inches and weight is 313 pounds with a body mass index of 53.7. Gen. appearance the patient is morbidly obese, and she is quite comfortable at this point in time. The patient appeared well nourished and normally developed. Vital signs as documented. Head exam is unremarkable. No scleral icterus or corneal arcus noted. Neck is without jugular venous distension, thyromegaly, or carotid bruits. Carotid upstrokes are brisk bilaterally. Lungs are clear to auscultation and percussion. Cardiac exam reveals the PMI to be normally sized and situated. Rhythm is regular. First and second heart sounds normal. No murmurs, rubs or gallops. Abdominal exam reveals normal bowel sounds, no masses, no organomegaly and no aortic enlargement. Extremities are nonedematous and both femoral and pedal pulses are normal. Examination of the skin revealed no evidence of significant rashes, suspicious appearing nevi or other concerning lesions. Neurologically, the patient is awake and alert and the patient does not have any focal neurological deficit. Cranial nerves are essentially intact. Assessment and Plan Plan: Severe symptomatic obstructive sleep apnea with an AHI of 74, adequately treated with CPAP therapy Morbid obesity with a BMI of 53.7 her current body weight is 213 pounds Chronic hypersomnia, improved with CPAP therapy and the current [place] score is down to 4 History of depression currently on Lexapro Osteoarthritis Acid reflux Plan Continue CPAP therapy at a pressure of 13 cm of water. We'll keep the patient has a mask interface which is an Airfit P10 nasal pillows medium size encourage weight loss sleep hygiene measures of adequate treatment of depression with Lexapro No adjustments on the CPAP machine was done today and refills were given Follow-up in one year's time
== END ==
LOC: SLEEP 13:26
PROVIDERS: ATTEND Internal Medicine Critical Care Medicine
DX: G47.33 Obstructive sleep apnea (adult) (pediatric) (principal); E66.01 Morbid (severe) obesity due to excess calories; Z68.43 Body mass index [BMI] 50.0-59.9, adult; Z99.89 Dependence on other enabling machines and devices; F32.A Depression, unspecified; M19.90 Unspecified osteoarthritis, unspecified site; K21.9 Gastro-esophageal reflux disease without esophagitis; Z79.899 Other long term (current) drug therapy

== ENCOUNTER → 2022-06-22 | Outpatient (CLI) | payer OTHER ==
[2022-06-22 09:10] VITALS: BP 131/84; PULSE 98; RESP 18; TEMP 98.2
--- NOTE | 2022-06-22 14:47 | P.PAINPG ---
Objective - Vital Signs Vital signs: Vital Signs Temp 98.2 F 06/22/22 09:03 Pulse 98 06/22/22 09:03 Resp 18 06/22/22 09:03 BP 131/84 06/22/22 09:03 Pulse Ox 96 06/22/22 09:03 FiO2 Intake & Output 06/21/22 06/22/22 06/22/22 18:59 06:59 18:59 Weight 136.078 kg PQRS Measure Charge Sheet Mode of Arrival: Ambulatory Comment: A 42 yr old female with a history of severe and chronic low back pain secondar y to lumbar degenerative disc diseases and lumbar spondylosis with facet arthropathy without myelopathy presents today for LBP evaluation. In Aug 2021, pt underwent a R SI injection and admits she experienced 90% pain relief x 2 mo s/p procedure. Pain level is currently at 8 /10 in intensity, constant, localized in the lower lumbar spine, sharp in character w shooting towards BL buttocks. Pain is provoked by walking/standing for periods of 20 min or more. Pain is alleviated with PT x 4 wks but ended in May 2021 when she caught Covid, chiropractic treatments semi weekly which ended Sep 2021, heat, ice, meds (Tylenol), topicals, sitting, repositioning and rest. Interventional pain procedures completed include BL RFA L3-L5, R SI injection Patient is currently on Tylenol Patient denies any side effects of the medication(s), denies excessive drowsiness or sleepiness, denies suicidal ideation and reports that the current pain medication is helping to control the pain and improve activities of daily living. Patient denies any motor or sensory deficits. Patient denies any fever or night sweats, denies any change in the bowel movements or urination. Physical Examination: -Constitutional: Cooperative. Not in acute distress . - Neurologic: Cranial nerve II to XII intact. No focal neurological deficits. - Psychatric: Alert & oriented x 3. Matching mood & appropriate affect. Judgment and insight intact. - Musculoskeletal: Cervical spine: Muscle bulk/ tone/ strength in the bilateral upper extremities normal Vertebral body tenderness to palpation over Spurling test positive Distraction test positive Facet loading test positive Thoracic spine Muscle bulk / tone/ strength in the bilateral paraspinal muscles normal Vertebral body tender to palpation over Facet loading test positive Lumbar spine: Motor bulk/ tone/ strength lower extremities , thigh and legs : 5/5 Deep tendon reflexes : Normal Knee Jerk. Normal Ankle Jerk . Vertebral body tenderness to palpation over Lumbar Facet Loading Test positive Straight Leg Raise: positive at 30 degrees right side/ left side Gaenslen's Test positive Sacral spine : Severe tenderness over the Sacroiliac joint: right side / left side Range of motion: Flexion of the lumbar spine <60 degrees Range of motion: Extension of the lumbar spine <20 degrees BL Gaenslen's Test positive Herminio test: positive right side > left side BL Thigh Thrust Test BL Sacral Thrust Test Assessment and plan: Chronic low back pain secondary to lumbar degenerative disc disease , lumbar spondylosis with facet arthropathy without myelopathy & BL Sacroiliitis Recommendation of BL SI injection. Pt discussed results of her 08/07/21 visit. Risks, benefits of procedure discussed and pt verbalized understanding. Admits anticoagulant use or medical history of diabetes. Protocol for discontinuation/ continuation of medications lily procedure discussed. All patient questions answered I have spent less than 30 minutes on patient care today. Dr Padilla was av ailable by phone for the evaluation of this patient. The time was used to review the medical records including relevant urine studies and Prescription history (MAPs), review of the available imaging, evaluation and examination of the patient, coordination of care with the medical staff and if applicable referring physicians, as well as creation of the medical record - Pain Location Bilateral Lower Back Non-Pharmacological Interventions: Chiropractic Treatment, Heat, Ice, Physical Therapy, Sitting Pharmacological Interventions: Block, Epidural, PRN Medication, Topical Medication PQRS Narrative: Smoking Status Current every day smoker Blood Pressure 131/84 Pain Intensity [Bilateral 8 Lower Back] Scale Used Numeric (1 - 10) Hx Alcohol Use (MH) Yes Home Medications: Ambulatory Orders Famotidine [Pepcid] 40 mg PO QAM 10/11/19 Albuterol Inhaler [Ventolin Hfa Inhaler] 1 - 2 puff INHALATION RT-Q4H PRN 11/02/19 EPINEPHrine (Auto Inject) [Epipen] 0.3 mg IM ONCE PRN 11/02/19 Meloxicam [Mobic] 15 mg PO QAM 06/05/21 Escitalopram [Lexapro] 20 mg PO QAM 08/27/21 Controlled Substance Measures - Controlled Substance Measures Is patient prescribed a controlled substance at discharge?: No
== END ==
LOC: PNWHC3 08:46
PROVIDERS: ATTEND Specialist
DX: M47.816 Spondylosis without myelopathy or radiculopathy, lumbar region (principal); M51.36 Other intervertebral disc degeneration, lumbar region; G89.29 Other chronic pain; M46.1 Sacroiliitis, not elsewhere classified; E11.9 Type 2 diabetes mellitus without complications; Z79.01 Long term (current) use of anticoagulants; E66.9 Obesity, unspecified; Z68.43 Body mass index [BMI] 50.0-59.9, adult; F17.200 Nicotine dependence, unspecified, uncomplicated; Z88.6 Allergy status to analgesic agent
CPT/HCPCS: 99211

== ENCOUNTER 2022-07-28 08:49 | Day surgery (SDC) | payer OTHER ==
[2022-07-27 08:59] VITALS: BMI 50.7
[2022-07-28 09:17] VITALS: TEMP 97
[2022-07-28] MEDS ORDERED: IOPAMIDOL M200 10 ML VIAL ONE (09:26)
[2022-07-28] MEDS ORDERED: ROPIVACAINE 5 MG/ML 20 ML AMPULE ONE (09:26)
[2022-07-28] MEDS ORDERED: TRIAMCINOLONE ACETONIDE 40 MG/ML 1 ML VIAL ONE (09:26)
[2022-07-28] MEDS ORDERED: MIDAZOLAM 2 MG/2 ML VIAL ONE (09:26)
[2022-07-28] MEDS ORDERED: fentaNYL (PF) 50 MCG/ML 2 ML AMP ONE (09:26)
--- NOTE | 2022-07-28 09:40 | P.PCN ---
Date of Procedure: 07/28/22 Description of Procedure: PREOPERATIVE DIAGNOSIS: Sacroiliac joint dysfunction POSTOPERATIVE DIAGNOSIS: Sacroiliac joint dysfunction. PROCEDURES: 1. Bilateral Sacroiliac joint steroid injection 2. Sacroiliac joint arthrogram. SURGEON: Bobbi Sims ANESTHESIA: Local and IV sedation : Versed 2 mg, and fentanyl 100 g. Sedation supervision start time : 927 sedation Supervision end time: 0 [id number] EBL: None. Specimen removed: None Fluoroscopic image: saved to electronic medical records. PROCEDURE INDICATIONS: This patient with a history of chronic low back pain, and sacroiliac joint dysfunction. Patient tried conservative therapy. Came here for intervention management. PROCEDURE DESCRIPTION: The patient was seen and identified in the preoperative area. Risks, benefits, complications, and alternatives were discussed with the patient. The patient agreed to proceed with the procedure and signed the consent. IV was started, and vital signs were stable. Patient was taken to the OR and time out was completed. The patient was placed in the prone position on procedure table and a pillow was placed under the abdomen to reduce lumbar lordosis. The lumbosacral area was prepped and draped in the usual sterile fashion. Critical pause was taken. Vital signs were closely monitored during the procedure. For the right side, the fluoroscopic camera was placed in left oblique view and right SI joint lower pole was identified. Skin entry point was infiltrated with 1% lidocaine and 22-gauge 5 inch spinal needle was introduced into the inferior one-third of SI joint and after penetrating into the joint arthrogram was done. 0.5 ml of [id number] contrast was injected after negative aspiration for blood, and air and negative for paresthesia. Good spread of the contrast into the SI joint has been seen. Then again after negative aspiration of spinal fluid and blood and negative for neurological symptoms, 3 mL of a solution containing total 2 mL of 0.5% preservative-free ropivacaine mixed with 40 mg of Kenalog was injected. Needle was withdrawn intact. The entire procedure was repeated on the left side as above. Needle was withdrawn intact. Skin was cleansed, and bandages were applied. COMPLICATIONS: None. DISPOSITION / PLANS: The patient was placed in a supine position and transferred to the recovery area in a stable condition for observation and was discharged from the recovery room after meeting discharge criteria. Home discharge instructions given to the patient by the staff. The patient was reexamined prior to discharge. The patient will schedule for follow-up visit with the pain clinic in 4 weeks duration.
[2022-07-28] MEDS ORDERED: IV FLUID CONTINUATION 800 ML IV ONE (09:42)
[2022-07-28] MEDS ORDERED: LACTATED RINGERS 1,000 ML IV SCH (09:45)
--- NOTE | 2022-07-28 09:54 | FL ---
Intraoperative/procedural fluoroscopic services were provided for sacroiliac joint injection. Total f luoroscopy time is 11 seconds with a total of 2 submitted images to PACS. Please see the operative no te for further details.
[2022-07-28 10:01] VITALS: BP 109/85; PULSE 98; RESP 20
== END 2022-07-28 10:17 | disposition home or self-care (01) ==
LOC: ORPAIN 08:49
DX: M53.3 Sacrococcygeal disorders, not elsewhere classified (principal); K21.9 Gastro-esophageal reflux disease without esophagitis; G47.33 Obstructive sleep apnea (adult) (pediatric); Z88.5 Allergy status to narcotic agent; Z79.899 Other long term (current) drug therapy; Z79.51 Long term (current) use of inhaled steroids; Z90.49 Acquired absence of other specified parts of digestive tract; Z98.890 Other specified postprocedural states
CPT/HCPCS: 81025; J2250; J3301; J3010; Q9966; J2795; G0260 ×2

== ENCOUNTER → 2022-09-03 | Outpatient (CLI) | payer OTHER ==
--- NOTE | 2022-09-03 11:31 | P.PAINPG ---
Subjective Progress Note Date: 09/03/22 Principal diagnosis: Limited back pain Ms. Phillips is a 42 -year-old pleasant female came to the [facility] pain clinic for postprocedure evaluation after bilateral sacroiliac joint injection done on 07/28/2022. She had 100% pain relief still helping on her left sacroiliac joint area. She is complaining no relief on right side. Patient has ongoing pain for many years. Patient describes pain is aching, throbbing, constant type of pain. Pain is radiating to right lower extremity sometimes causing numbness and tingling sensation. Patient rated pain levels are 8 out of 10 in severity. With the help of medications pain levels are 6-10 out of 10 in severity. Activities making pain worse. Medications, resting, intervention procedures helping in relieving patient's pain. Patient pain some days better than others. Overall activities decreased secondary to pain. Because of the pain sometimes patient is feeling lack of sleep, interest, and energy. Denied any side effects with the medications. Denied any bowel or bladder problems at this time. Patient is not using any for walking support. Patient denies any suicidal or homicidal ideations intent or plan. Patient denies any auditory or visual hallucinations. Patient denied any red flag symptoms related to pain. She tried multiple types of conservative therapy, physical therapy, heating pad, medications, intervention procedures in the past with some relief. 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 Sensation grossly intact Lower extremity: Normal strength, and decreased range of motion secondary to pain. Sensation grossly intact Lumbar spine: Paravertebral tenderness: positive Lumbar facet load test : positive Sacroiliac joint tenderness: Positive Thigh thrust test: Positive SI joint compression test: Positive Fabere test: Positive - Constitutional Constitutional Comment(s): 13 point review of symptoms negative except as mentioned in history of present illness Assessment and Plan Assessment: Bilateral sacroiliac joint dysfunction Lumbar spondylosis without myelopathy Morbid obesity Myofascial pain syndrome, and chronic pain syndrome Plan: #1 Diagnoses, prognosis, and multiple treatment options including but not limited to physical therapy, interventional therapy, adjunct medication therapy, narcotic medication, and surgical options were discussed with the patient. And all questions were answered to the patient's satisfaction. #2 treatment plan agreement : Patient was thoroughly discussed regarding the treatment options, alternatives, and importance of exercises as tolerated. Patient clearly understood. #3 Patient was counseled on importance of regular exercise. Including rhina chi, aerobic exercises as tolerated. Which helps for chronic pain, and overall well- being. Patient also counseled regarding importance of weight control rolling chronic pain, and overall other health issues. By altering diet habits, minimizing sugar intake, and processed foods helps in minimizing Inflammation. Also discussed with the patient regarding intermittent fasting. Patient counseled regarding smoking associated with chronic pain, worsening inflammation, and smoking effects on liver, and medication metabolism. And encouraged to stop smoking. #4 investigations: MAPS- reviewed , urine drug test-none #5 diagnostic tests: None at this time #6 consultation : And direct consultation, and bariatric surgical consultation but patient refuses to go secondary to her hernias # 7 interventional procedures: Right-sided sacroiliac joint injection. Procedure, complications, alternatives discussed with the patient. #8 medications None from the pain clinic #9 morphine milligrams equivalents dose ( MME) per day: 0 from the pain clinic. # 10 TENS unit's, and percussion massage device #11 disposition: scheduled to follow up with pain clinic in 4 weeks duration. Time with Patient: Less than 30 PQRS Measure Charge Sheet Measure #130: Documentation of Current Meds in Medical Chart: Patient's medications documented in chart Measure #226: Tobacco Use: Screen & Cessation Intervention: Pt screened for tobacco use AND intervention given Measure #111: Pneumonia Vaccination: Pneumococcal vaccine NOT administered or previously given Measure #47: Advance Care Plan: Advance care planning discussed & documented, pt chose/unable to give Measure #412: Opioid Treatment Agreement: No documentation of signed opioid treatment agreement Measure #408: Opioid Therapy Follow-up Evaluation: Patient had NO f/u eval minimum every 3 months during opioid therapy Measure #317: Preventitive Care & Scrn High Bld Press & F/U: Pre-hypertensive or hypertensive BP documented, pt will f/u with PCP Measure #128: Body Mass Index (BMI) Screening & Follow-up: BMI documented ABOVE normal parameters - f/u documented Measure #131: Pain Assessment & Follow-up: Pain positive & plan documented Measure #431: Unhealthy Alcohol Use Preventative Care & Scrn: Patient not identified as an unhealthy alcohol user PQRS Narrative: Smoking Status Current every day smoker Hx Alcohol Use (MH) Yes Home Medications: Ambulatory Orders Famotidine [Pepcid] 40 mg PO QAM 10/11/19 Albuterol Inhaler [Ventolin Hfa Inhaler] 1 - 2 puff INHALATION RT-Q4H PRN 11/02/19 EPINEPHrine (Auto Inject) [Epipen] 0.3 mg IM ONCE PRN 11/02/19 Meloxicam [Mobic] 15 mg PO QAM 06/05/21 Escitalopram [Lexapro] 20 mg PO QAM 08/27/21 Oxybutynin Xl [Ditropan XL] 5 mg PO DAILY 07/27/22 Controlled Substance Measures - Controlled Substance Measures Is patient prescribed a controlled substance at discharge?: No
[2022-09-03 11:43] VITALS: BP 137/73; PULSE 97; RESP 18; TEMP 97.9
== END ==
LOC: PNWHC3 10:53
DX: M47.816 Spondylosis without myelopathy or radiculopathy, lumbar region (principal); M46.1 Sacroiliitis, not elsewhere classified; E66.01 Morbid (severe) obesity due to excess calories; G89.4 Chronic pain syndrome; M79.10 Myalgia, unspecified site; Z88.6 Allergy status to analgesic agent; F17.200 Nicotine dependence, unspecified, uncomplicated; Z68.43 Body mass index [BMI] 50.0-59.9, adult
CPT/HCPCS: 99211

== ENCOUNTER → 2022-11-18 | Outpatient (CLI) | payer OTHER ==
[2022-11-18 09:15] VITALS: BP 128/83; PULSE 104; RESP 18; TEMP 98.1
--- NOTE | 2022-11-18 15:09 | P.PAINPG ---
PQRS Measure Charge Sheet Comment: A 42 yr old female with a history of severe and chronic LBP secondary to lumbar DDD and spondylosis with facet arthropathy without myelopathy, R Sacroiliitis presents today for evaluation s/p R SI injection. Pt states she experienced 100 % pain relief x 2 hrs s/p procedure. Pain level is provoked at 8/10 in intensity, constant, localized in the R lumbar spine, achy/ sharp in character w shooting towards the RLE. Pain is provoked by standing/ walking for periods of 15 min or more. Pain is alleviated with PT x 3wks in 2019, chiropractic treatments semi monthly x 2 mo in Aug 2022, heat, ice, medications, topicals, sitting, repositioning and rest. Interventional pain procedures completed include R SI injection Patient is currently on Tyl Patient denies any side effects of the medication(s), denies excessive drowsiness or sleepiness, denies suicidal ideation and reports that the current pain medication is helping to control the pain and improve activities of daily living. Patient denies any motor or sensory deficits. Patient denies any fever or night sweats, denies any change in the bowel movements or urination. Physical Examination: -Constitutional: Cooperative. Not in acute distress . - Neurologic: Cranial nerve II to XII intact. No focal neurological deficits. - Psychatric: Alert & oriented x 3. Matching mood & appropriate affect. Judgment and insight intact. - Musculoskeletal: Cervical spine: Muscle bulk/ tone/ strength in the bilateral upper extremities normal Vertebral body tenderness to palpation over Spurling test positive Distraction test positive Facet loading test positive TTP Thoracic spine Muscle bulk / tone/ strength in the bilateral paraspinal muscles normal Vertebral body tender to palpation over Facet loading test positive TTP Lumbar spine: Motor bulk/ tone/ strength lower extremities , thigh and legs : 5/5 Deep tendon reflexes : Normal Knee Jerk. Normal Ankle Jerk . Vertebral body tenderness to palpation over L5 Lumbar Facet Loading Test positive Straight Leg Raise: positive at 30 degrees right side/ left side Gaenslen's Test positive Sacral spine : Severe tenderness over the Sacroiliac joint: right side / left side Range of motion: Flexion of the lumbar spine <60 degrees Range of motion: Extension of the lumbar spine <20 degrees Gaenslen's Test positive right side / left side Herminio test: positive right side / left side Thigh Thrust Test positive right side / left side Sacral Thrust Test positive right side / left side Assessment and plan: Chronic LBP secondary to lumbar DDD, spondylosis with facet arthropathy without myelopathy, R Sacroiliitis Recommendation of R TFESI L5-S1. May need a series fo injections for optimal pain relief. Risks, benefits of procedure discussed and pt verbalized understanding. Admits to anticoagulant use or medical history of diabetes. Protocol for discontinuation/ continuation of medications lily procedure discus sed. All questions answered. I have spent less than 30 minutes on patient care today. Dr Padilla was available by phone for the evaluation of this patient. The time was used to review the medical records including relevant urine studies and Prescription history (MAPs), review of the available imaging, evaluation and examination of the patient, coordination of care with the medical staff and if applicable referring physicians, as well as creation of the medical record PQRS Narrative: Smoking Status Current every day smoker Hx Alcohol Use (MH) Yes Home Medications: Ambulatory Orders Famotidine [Pepcid] 40 mg PO QAM 10/11/19 Albuterol Inhaler [Ventolin Hfa Inhaler] 1 - 2 puff INHALATION RT-Q4H PRN 11/02/19 EPINEPHrine (Auto Inject) [Epipen] 0.3 mg IM ONCE PRN 11/02/19 Escitalopram [Lexapro] 20 mg PO QAM 08/27/21 Oxybutynin Xl [Ditropan XL] 5 mg PO DAILY 07/27/22 Controlled Substance Measures - Controlled Substance Measures Is patient prescribed a controlled substance at discharge?: No
== END ==
LOC: PNWHC3 08:27
PROVIDERS: ATTEND Specialist
DX: M51.36 Other intervertebral disc degeneration, lumbar region (principal); M47.816 Spondylosis without myelopathy or radiculopathy, lumbar region; M46.1 Sacroiliitis, not elsewhere classified; G89.29 Other chronic pain; F17.200 Nicotine dependence, unspecified, uncomplicated; Z88.6 Allergy status to analgesic agent
CPT/HCPCS: 99211

== ENCOUNTER 2022-12-22 06:58 | Day surgery (SDC) | payer OTHER ==
[2022-12-22 07:44] VITALS: RESP 18; TEMP 97.1
[2022-12-22] MEDS ORDERED: LACTATED RINGERS 1,000 ML IV SCH (07:46)
[2022-12-22] MEDS ORDERED: LIDOCAINE 1% (10MG/ML) FOR IV START INTRADERMA PRN (07:46)
[2022-12-22] MEDS ORDERED: LIDOCAINE 1% (10MG/ML) FOR IV START INTRADERMA ONE (07:56)
[2022-12-22] MEDS ORDERED: MIDAZOLAM 2 MG/2 ML VIAL ONE (08:07)
[2022-12-22] MEDS ORDERED: IOPAMIDOL M200 10 ML VIAL ONE (08:07)
[2022-12-22] MEDS ORDERED: methylPREDNISolone ACETATE 80 MG/ML 1 ML VIAL ONE (08:07)
[2022-12-22] MEDS ORDERED: fentaNYL (PF) 50 MCG/ML 2 ML AMP ONE (08:07)
--- NOTE | 2022-12-22 08:21 | P.PCN ---
Date of Procedure: 12/22/22 Procedure(s) Performed: PREOPERATIVE DIAGNOSIS: 1-Lumbar radiculopathy . 2-lumbar degenerative disc disease. 3-lumbar spondylosis with lumbar facet arthropathy without myelopathy POSTOPERATIVE DIAGNOSIS: 1-lumbar radiculopathy. 2-lumbar degenerative disc disease. 3-lumbar spondylosis with facet arthropathy without myelopathy PROCEDURE 1. Transforaminal epidural steroid injection under fluoroscopic guidance at right L5-S1 level. (Fluoroscopy images stored on file in the radiology Department ) 2. Lumbar epidurogram . ANESTHESIA: Local with 1% lidocaine 3 ml , moderate sedation with intravenous Versed 2 mg and fentanyle 50 micrograms. Sedation start time : 810 . Sedation. stop time : 817 . EBL: Minimal PROCEDURE INDICATION: The patient with low back pain and radiculopathy symptoms unresponsive to conservative treatment. PROCEDURE DESCRIPTION / TECHNIQUE: The patient was seen and identified in the preoperative area. Risks, benefits, complications, and alternatives were discussed with the patient. The patient agreed to proceed with the procedure and signed the consent. IV was started, and vital signs were stable. Patient was taken to the OR and time out was completed. The patient was placed in the prone position on procedure table and a pillow was placed under the abdomen to reduce lumbar lordosis. The lumbosacral area was prepped and draped in the usual sterile fashion. Critical pause was taken. Vital signs were closely monitored during the procedure. Conscious sedation was used during the procedure to decrease patient s anxiety. Using oblique fluoroscopy, the chin of the ``Andrews dog at right L5-S1 level was identified, and the skin and deeper tissues just below was localized with 1% lidocaine. Subsequently, a 20-gauge 6-inch spinal needle was advanced under a tunneled view fluoroscopic guidance just underneath the chin of the ``Andrews dog at the right L5-S1 Under lateral fluoroscopy, the needle was then advanced to the posterior border of the interforaminal space. After negative aspiration of CSF and blood and with no paresthesias, 1 mL Isovue 200 contrast dye was injected excellent epidurogram and outlining of the nerve root Subsequently, 3 mL of block solution containing 80 mg Depo-Medrol and 2 mL of 0.9% normal saline PF was injected. Needle was removed . At the end of the procedure, skin was cleansed, and bandages were applied. COMPLICATIONS:none DISPOSITION / PLANS: The patient was placed in a supine position and transferred to the recovery area in a stable condition for observation. There was no evidence of lower extremity motor or sensory deficit after the procedure. Patient was discharged from the recovery room after meeting discharge criteria. Home discharge instructions were given to the patient by the staff. The patient was reexamined prior to discharge.
[2022-12-22] MEDS ORDERED: IV FLUID CONTINUATION 1,000 ML IV ONE (08:23)
--- NOTE | 2022-12-22 08:47 | FL ---
Intraoperative/procedural fluoroscopic services were provided. Total fluoroscopy time is 8.2 seconds with a total of 1 submitted images to PACS. Please see the operative/procedural note for further deta ils. DAP: [id number]
[2022-12-22 08:53] VITALS: BP 111/66; PULSE 75
== END 2022-12-22 09:02 | disposition home or self-care (01) ==
LOC: ORPAIN 06:58
PROVIDERS: ATTEND Specialist
DX: M51.16 Intervertebral disc disorders with radiculopathy, lumbar region (principal); M47.26 Other spondylosis with radiculopathy, lumbar region; Z88.8 Allergy status to other drugs, medicaments and biological substances
CPT/HCPCS: 81025; 64483; J2250; J1040; J3010; Q9966

== ENCOUNTER → 2023-06-14 | Outpatient (CLI) | payer OTHER ==
[2023-06-14 10:48] VITALS: BP 138/76; PULSE 79; RESP 15; TEMP 98.7
--- NOTE | 2023-06-14 11:10 | XR ---
EXAM TYPE: LUMBAR SPINE X RAY SERIES COMPARISON: NONE HISTORY: Low back pain TECHNIQUE: 4 views are submitted. FINDINGS: Alignment is anatomic. The pedicles are intact. The transverse processes are intact. There is diff use osteopenia. Surgical clips in the gallbladder fossa. There is grade 1 anterior listhesis of L4-L5 with mild multilevel change. Mild degenerative disc disease L5-S1. Facet the L4-S1. IMPRESSION: 1. Diffuse osteopenia with mild degenerative disc disease L5-S1. Advanced facet arthropathy L4-L5 and L5-S1 results in grade 1 anterior listhesis at L4-5.
--- NOTE | 2023-06-14 14:38 | P.PAINPG ---
PQRS Measure Charge Sheet Comment: A 42 yr old female with a history of severe and chronic LBP secondary to lumbar DDD and spondylosis with facet arthropathy without myelopathy, R Sacroiliitis presents today for evaluation s/p R TFESI L5-S1 #1. Pt states she experienced % pain relief x 5 mo s/p procedure. Pain level is provoked at 8/10 in intensity, constant, localized in the R lumbar spine, achy/ sharp in character w shooting towards the RLE. Pain is provoked by standing/ walking for periods of 15 min or more. Pain is alleviated with PT x 3 wks in 2019 before she became ill w covid, chiropractic treatments semi monthly x 2 mo in Aug 2022, physician guided stretches 5 times daily since 2020, heat, ice, medications, topicals, sitting, repositioning and rest. Interventional pain procedures completed include R SI injection, R TFESI L5-S1 x1 Patient is currently on Tyl Patient denies any side effects of the medication(s), denies excessive drowsiness or sleepiness, denies suicidal ideation and reports that the current pain medication is helping to control the pain and improve activities of daily living. Patient denies any motor or sensory deficits. Patient denies any fever or night sweats, denies any change in the bowel movements or urination. Physical Examination: -Constitutional: Cooperative. Not in acute distress . - Neurologic: Cranial nerve II to XII intact. No focal neurological deficits. - Psychatric: Alert & oriented x 3. Matching mood & appropriate affect. Judgment and insight intact. - Musculoskeletal: Cervical spine: Muscle bulk/ tone/ strength in the bilateral upper extremities normal Vertebral body tenderness to palpation over Spurling test positive Distraction test positive Facet loading test positive TTP Thoracic spine Muscle bulk / tone/ strength in the bilateral paraspinal muscles normal Vertebral body tender to palpation over Facet loading test positive TTP Lumbar spine: Motor bulk/ tone/ strength lower extremities , thigh and legs : 5/5 Deep tendon reflexes : Normal Knee Jerk. Normal Ankle Jerk . Vertebral body tenderness to palpation over L5 Lumbar Facet Loading Test positive Straight Leg Raise: positive at 30 degrees right side/ left side Gaenslen's Test positive Sacral spine : Severe tenderness over the Sacroiliac joint: right side / left side Range of motion: Flexion of the lumbar spine <60 degrees Range of motion: Extension of the lumbar spine <20 degrees Gaenslen's Test positive right side / left side Herminio test: positive right side / left side Thigh Thrust Test positive right side / left side Sacral Thrust Test positive right side / left side Assessment and plan: Chronic LBP secondary to lumbar DDD, spondylosis with facet arthropathy without myelopathy, R Sacroiliitis Recommendation of lumbar x ray M51.36 May need additional testing if indicated. Follow up in 4 wks for a re evaluation. All questions answered. I have spent less than 30 minutes on patient care today. Dr Padilla was available by phone for the evaluation of this patient. The time was used to review the medical records including relevant urine studies and Prescription history (MAPs), review of the available imaging, evaluation and examination of the patient, coordination of care with the medical staff and if applicable referring physicians, as well as creation of the medical record PQRS Narrative: Smoking Status Current every day smoker Hx Alcohol Use (MH) Yes Home Medications: Ambulatory Orders Famotidine [Pepcid] 40 mg PO QAM 10/11/19 Albuterol Inhaler [Ventolin Hfa Inhaler] 1 - 2 puff INHALATION RT-Q4H PRN 11/02/19 EPINEPHrine (Auto Inject) [Epipen] 0.3 mg IM ONCE PRN 11/02/19 Escitalopram [Lexapro] 20 mg PO QAM 08/27/21 Oxybutynin Xl [Ditropan XL] 5 mg PO DAILY 07/27/22 Acetaminophen Tab [Tylenol] 2 tab PO DIRECTED PRN 12/22/22 Controlled Substance Measures - Controlled Substance Measures Is patient prescribed a controlled substance at discharge?: No
== END ==
LOC: PNWHC3 10:12
PROVIDERS: ATTEND Specialist
DX: M51.37 Other intervertebral disc degeneration, lumbosacral region (principal); M47.817 Spondylosis without myelopathy or radiculopathy, lumbosacral region; M43.16 Spondylolisthesis, lumbar region; G89.29 Other chronic pain; F17.200 Nicotine dependence, unspecified, uncomplicated; M85.80 Other specified disorders of bone density and structure, unspecified site; M46.1 Sacroiliitis, not elsewhere classified; Z88.6 Allergy status to analgesic agent
CPT/HCPCS: 72100; G0463; 99211

== ENCOUNTER → 2023-10-14 | Outpatient (CLI) | payer OTHER ==
[2023-10-14 09:28] VITALS: BP 138/75; PULSE 89; RESP 15; TEMP 98.5
--- NOTE | 2023-10-14 14:30 | P.PAINPG ---
PQRS Measure Charge Sheet Comment: A 43 yr old female with a history of severe and chronic LBP secondary to lumbar DDD and spondylosis with facet arthropathy without myelopathy, R Sacroiliitis presents today for evaluation s/p R TFESI L5-S1 #1. Pt states she experienced 80 % pain relief x 3 mo s/p procedure. Pain level is provoked at 8/10 in intensity, constant, localized in the R lumbar spine, predominantly axial, achy in character w occasional shooting towards the RLE. Pain is provoked by standing/ walking for periods of 15 min or more. Pain is alleviated with PT x 6 wks in which ended in Sep 2023, chiropractic treatments semi monthly x 2 mo in Aug 2022, physician guided stretches 5 times daily since 2020, heat & ice, medications, topicals, sitting, repositioning and rest. Oswestry axial pain score of 24. Interventional pain procedures completed include R SI injection, R TFESI L5-S1 x1 Patient is currently on Tyl, THC Gummies Patient denies any side effects of the medication(s), denies excessive drowsiness or sleepiness, denies suicidal ideation and reports that the current pain medication is helping to control the pain and improve activities of daily living. Patient denies any motor or sensory deficits. Patient denies any fever or night sweats, denies any change in the bowel movements or urination. Physical Examination: -Constitutional: Cooperative. Not in acute distress . - Neurologic: Cranial nerve II to XII intact. No focal neurological deficits. - Psychatric: Alert & oriented x 3. Matching mood & appropriate affect. Judgment and insight intact. - Musculoskeletal: Cervical spine: Muscle bulk/ tone/ strength in the bilateral upper extremities normal Vertebral body tenderness to palpation over Spurling test positive Distraction test positive Facet loading test positive TTP Thoracic spine Muscle bulk / tone/ strength in the bilateral paraspinal muscles normal Vertebral body tender to palpation over Facet loading test positive TTP Lumbar spine: Motor bulk/ tone/ strength lower extremities , thigh and legs : 5/5 Deep tendon reflexes : Normal Knee Jerk. Normal Ankle Jerk . Vertebral body tenderness to palpation over L5 Lumbar Facet Loading Test positive Straight Leg Raise: positive at 30 degrees right side/ left side Gaenslen's Test positive Sacral spine : Severe tenderness over the Sacroiliac joint: right side / left side Range of motion: Flexion of the lumbar spine <60 degrees Range of motion: Extension of the lumbar spine <20 degrees Gaenslen's Test positive right side / left side Herminio test: positive right side / left side Thigh Thrust Test positive right side / left side Sacral Thrust Test positive right side / left side Imaging: Lumbar x-ray from 06/14/23 reviewed Assessment and plan: Chronic LBP secondary to lumbar DDD, spondylosis with facet arthropathy without myelopathy, R Sacroiliitis Recommendation of lumbar MRI non contrast M51.36 . Follow up in 1-2 wks for a re evaluation. All questions answered. I have spent less than 30 minutes on patient care today. Dr Padilla was available by phone for the evaluation of this patient. The time was used to review the medical records including relevant urine studies and Prescription history (MAPs), review of the available imaging, evaluation and examination of the patient, coordination of care with the medical staff and if applicable referring physicians, as well as creation of the medical record PQRS Narrative: Smoking Status Current every day smoker Hx Alcohol Use (MH) Yes Home Medications: Ambulatory Orders Famotidine [Pepcid] 40 mg PO QAM 10/11/19 Albuterol Inhaler [Ventolin Hfa Inhaler] 1 - 2 puff INHALATION RT-Q4H PRN 11/02/19 EPINEPHrine (Auto Inject) [Epipen] 0.3 mg IM ONCE PRN 11/02/19 Escitalopram [Lexapro] 20 mg PO QAM 08/27/21 Oxybutynin Xl [Ditropan XL] 5 mg PO DAILY 07/27/22 Acetaminophen Tab [Tylenol] 2 tab PO DIRECTED PRN 12/22/22 Controlled Substance Measures - Controlled Substance Measures Is patient prescribed a controlled substance at discharge?: No
== END ==
LOC: PNWHC3 09:05
PROVIDERS: ATTEND Specialist
DX: M46.1 Sacroiliitis, not elsewhere classified (principal); M51.36 Other intervertebral disc degeneration, lumbar region; M47.816 Spondylosis without myelopathy or radiculopathy, lumbar region; G89.29 Other chronic pain; F17.200 Nicotine dependence, unspecified, uncomplicated; F12.90 Cannabis use, unspecified, uncomplicated; Z88.6 Allergy status to analgesic agent
CPT/HCPCS: 99211

== ENCOUNTER → 2023-10-18 | Outpatient (CLI) | payer OTHER ==
--- NOTE | 2023-10-19 08:15 | MR ---
EXAMINATION TYPE: MR lumbar spine wo con DATE OF EXAM: 10/18/2023 COMPARISON: Prior 2020 exam is unavailable for comparison. HISTORY: Low back pain into both legs, CONTRAST: 0 mL intravenous Gadavist. TECHNIQUE: Multiplanar, multisequence images of the lumbar spine were acquired. FINDINGS: L5-S1: No significant disc bulge or disc herniation. Disc desiccation is present. No loss of disc hei ght is evident. No spinal canal stenosis. No foraminal stenosis. Facet hypertrophy is present on th e right.. L4-L5: No significant disc bulge or disc herniation. No spinal canal stenosis. No foraminal stenosi s. Bilateral facet hypertrophy is present. Some mild narrowing of the AP diameter is present in rela tion to the remaining portions of the visualized lumbar spinal canal. No AP spinal canal stenosis is evident however. L3-L4: No significant disc bulge or disc herniation. No spinal canal stenosis. No foraminal stenosi s. Neural foramen are patent.. L2-L3: No significant disc bulge or disc herniation. No spinal canal stenosis. No foraminal stenosi s. L1-L2: No significant disc bulge or disc herniation. No spinal canal stenosis. No foraminal stenosi s. T12-L1: No significant disc bulge or disc herniation. No spinal canal stenosis. No foraminal stenos is. IMPRESSION: 1. Mild facet hypertrophy on the right L5-S1 bilaterally L4-5. 2. Mild Disc desiccation L3-4 L4-5 and L5-S1 without loss of disc height.
== END | disposition home or self-care (01) ==
LOC: RADMRIMAIN 21:45
PROVIDERS: ATTEND Specialist
DX: M47.817 Spondylosis without myelopathy or radiculopathy, lumbosacral region (principal); M51.36 Other intervertebral disc degeneration, lumbar region
CPT/HCPCS: 72148

== ENCOUNTER → 2023-10-28 | Outpatient (CLI) | payer OTHER ==
[2023-10-28 09:32] VITALS: BP 147/82; PULSE 83; RESP 15; TEMP 98.6
--- NOTE | 2023-10-28 14:37 | P.PAINPG ---
PQRS Measure Charge Sheet Comment: A 43 yr old female with a history of severe and chronic LBP secondary to lumbar DDD and spondylosis with facet arthropathy without myelopathy, R Sacroiliitis presents today for evaluation. Pain level is provoked at 7 /10 in intensity, constant, localized in the lower lumbar spine, predominantly axial, achy in character w occasional shooting towards the BLEs, R > L. Pain is provoked by standing/ walking for periods of 15 min or more. Pain is alleviated with PT x 6 wks in which ended in Sep 2023, chiropractic treatments semi monthly x 2 mo in Aug 2022, physician guided stretches 5 times daily since 2020, heat & ice, medications, topicals, sitting, repositioning and rest. Oswestry axial pain score of 23. Interventional pain procedures completed include R SI injection, R TFESI L5-S1 x1 Patient is currently on Tyl, THC Gummies Patient denies any side effects of the medication(s), denies excessive d rowsiness or sleepiness, denies suicidal ideation and reports that the current pain medication is helping to control the pain and improve activities of daily living. Patient denies any motor or sensory deficits. Patient denies any fever or night sweats, denies any change in the bowel movements or urination. Physical Examination: -Constitutional: Cooperative. Not in acute distress . - Neurologic: Cranial nerve II to XII intact. No focal neurological deficits. - Psychatric: Alert & oriented x 3. Matching mood & appropriate affect. Judgment and insight intact. - Musculoskeletal: Cervical spine: Muscle bulk/ tone/ strength in the bilateral upper extremities normal Vertebral body tenderness to palpation over Spurling test positive Distraction test positive Facet loading test positive TTP Thoracic spine Muscle bulk / tone/ strength in the bilateral paraspinal muscles normal Vertebral body tender to palpation over Facet loading test positive TTP Lumbar spine: Motor bulk/ tone/ strength lower extremities , thigh and legs : 5/5 Deep tendon reflexes : Normal Knee Jerk. Normal Ankle Jerk . Vertebral body tenderness to palpation over L5 Lumbar Facet Loading Test positive Straight Leg Raise: positive at 30 degrees right side/ left side Gaenslen's Test positive Sacral spine : Severe tenderness over the Sacroiliac joint: right side / left side Range of motion: Flexion of the lumbar spine <60 degrees Range of motion: Extension of the lumbar spine <20 degrees Gaenslen's Test positive right side / left side Herminio test: positive right side / left side Thigh Thrust Test positive right side / left side Sacral Thrust Test positive right side / left side Imaging: Lumbar x-ray from 06/14/23 reviewed MRI non-contrast of the lumbar spine from 10/19/23 reviewed Assessment and plan: Chronic LBP secondary to lumbar DDD, spondylosis with facet arthropathy without myelopathy, R Sacroiliitis Recommendation of BL TFESI L5-S1 #2. May need a series of injections for optimal pain relief. Risks, benefits of procedure discussed and patient verbalized understanding. Protocol for discontinuation/continuation of medications surrounding procedure discussed. All questions answered. I have spent less than 30 minutes on patient care today. Dr Padilla was available by phone for the evaluation of this patient. The time was used to review the medical records including relevant urine studies and Prescription history (MAPs), review of the available imaging, evaluation and examination of the patient, coordination of care with the medical staff and if applicable referring physicians, as well as creation of the medical record PQRS Narrative: Smoking Status Current every day smoker Hx Alcohol Use (MH) Yes Home Medications: Ambulatory Orders Famotidine [Pepcid] 40 mg PO QAM 10/11/19 Albuterol Inhaler [Ventolin Hfa Inhaler] 1 - 2 puff INHALATION RT-Q4H PRN 11/02/19 EPINEPHrine (Auto Inject) [Epipen] 0.3 mg IM ONCE PRN 11/02/19 Escitalopram [Lexapro] 20 mg PO QAM 08/27/21 Oxybutynin Xl [Ditropan XL] 5 mg PO DAILY 07/27/22 Acetaminophen Tab [Tylenol] 2 tab PO DIRECTED PRN 12/22/22 Controlled Substance Measures - Controlled Substance Measures Is patient prescribed a controlled substance at discharge?: No
== END ==
LOC: PNWHC3 08:47
PROVIDERS: ATTEND Specialist
DX: M51.36 Other intervertebral disc degeneration, lumbar region (principal); M47.816 Spondylosis without myelopathy or radiculopathy, lumbar region; G89.29 Other chronic pain; M46.1 Sacroiliitis, not elsewhere classified; F17.200 Nicotine dependence, unspecified, uncomplicated; F12.90 Cannabis use, unspecified, uncomplicated; Z88.6 Allergy status to analgesic agent
CPT/HCPCS: 99211

== ENCOUNTER → 2023-12-02 | Outpatient (CLI) | payer OTHER ==
[2023-12-02 08:41] VITALS: BP 135/82; PULSE 95; RESP 15; TEMP 98.5
--- NOTE | 2023-12-02 14:07 | P.PAINPG ---
PQRS Measure Charge Sheet Comment: A 43 yr old female with a history of severe and chronic LBP secondary to lumbar DDD and spondylosis with facet arthropathy without myelopathy, R Sacroiliitis presents today for evaluation s/p BL TFESI L5-S1 #2. Pt states she experienced 20 % pain relief x 3 days s/p procedure. Pain level is provoked at 7 /10 in intensity, constant, localized in the lower lumbar spine, predominantly axial, achy in character w occasional shooting BL midline, L < R. Pain is provoked by standing/ walking for periods of 15 min or more. Pain is alleviated with PT x 6 wks in which ended in Sep 2023, chiropractic treatments semi monthly x 2 mo in Aug 2022, physician guided stretches 5 times daily since 2020, heat & ice, medications, topicals, sitting, repositioning and rest. Oswestry axial pain score of 23. Interventional pain procedures completed include R SI injection, BL TFESI L5-S1 x2 Patient is currently on Tyl, THC Gummies Patient denies any side effects of the medication(s), denies excessive drowsiness or sleepiness, denies suicidal ideation and reports that the current pain medication is helping to control the pain and improve activities of daily living. Patient denies any motor or sensory deficits. Patient denies any fever or night sweats, denies any change in the bowel movements or urination. Physical Examination: -Constitutional: Cooperative. Not in acute distress . - Neurologic: Cranial nerve II to XII intact. No focal neurological deficits. - Psychatric: Alert & oriented x 3. Matching mood & appropriate affect. Judgment and insight intact. - Musculoskeletal: Cervical spine: Muscle bulk/ tone/ strength in the bilateral upper extremities normal Vertebral body tenderness to palpation over Spurling test positive Distraction test positive Facet loading test positive TTP Thoracic spine Muscle bulk / tone/ strength in the bilateral paraspinal muscles normal Vertebral body tender to palpation over Facet loading test positive TTP Lumbar spine: Motor bulk/ tone/ strength lower extremities , thigh and legs : 5/5 Deep tendon reflexes : Normal Knee Jerk. Normal Ankle Jerk . Vertebral body tenderness to palpation Lumbar Facet Loading Test positive BL L4-L5, L5-S1 Straight Leg Raise: positive at 30 degrees right side/ left side Gaenslen's Test positive Sacral spine : Severe tenderness over the Sacroiliac joint: right side / left side Range of motion: Flexion of the lumbar spine <60 degrees Range of motion: Extension of the lumbar spine <20 degrees Gaenslen's Test positive right side / left side Herminio test: positive right side / left side Thigh Thrust Test positive right side / left side Sacral Thrust Test positive right side / left side Imaging: Lumbar x-ray from 06/14/23 reviewed MRI non-contrast of the lumbar spine from 10/19/23 reviewed Assessment and plan: Chronic LBP secondary to lumbar DDD, spondylosis with facet arthropathy without myelopathy, R Sacroiliitis Recommendation of BL MBB L4-L5, L5-S1 #1. May need a series of injections, up until RFA, for optimal pain relief. Risks, benefits of procedure discussed and patient verbalized understanding. Protocol for discontinu ation/continuation of medications surrounding procedure discussed. All questions answered. I have spent less than 30 minutes on patient care today. Dr Padilla was available by phone for the evaluation of this patient. The time was used to review the medical records including relevant urine studies and Prescription history (MAPs), review of the available imaging, evaluation and examination of the patient, coordination of care with the medical staff and if applicable referring physicians, as well as creation of the medical record PQRS Narrative: Smoking Status Current every day smoker Hx Alcohol Use (MH) Yes Home Medications: Ambulatory Orders Famotidine [Pepcid] 40 mg PO QAM 10/11/19 Albuterol Inhaler [Ventolin Hfa Inhaler] 1 - 2 puff INHALATION RT-Q4H PRN 11/02/19 EPINEPHrine (Auto Inject) [Epipen] 0.3 mg IM ONCE PRN 11/02/19 Escitalopram [Lexapro] 20 mg PO QAM 08/27/21 Oxybutynin Xl [Ditropan XL] 10 mg PO DAILY 07/27/22 Acetaminophen Tab [Tylenol] 2 tab PO DIRECTED PRN 12/22/22 Cyclobenzaprine [Flexeril] 10 mg PO HS PRN 11/05/23 Controlled Substance Measures - Controlled Substance Measures Is patient prescribed a controlled substance at discharge?: No
== END ==
LOC: PNWHC3 07:49
PROVIDERS: ATTEND Specialist
DX: M51.37 Other intervertebral disc degeneration, lumbosacral region (principal); M47.817 Spondylosis without myelopathy or radiculopathy, lumbosacral region; G89.29 Other chronic pain; F17.200 Nicotine dependence, unspecified, uncomplicated; Z88.6 Allergy status to analgesic agent
CPT/HCPCS: 99211

== ENCOUNTER 2023-12-24 07:42 | Day surgery (SDC) | payer OTHER ==
[2023-12-24] MEDS: LACTATED RINGERS 1,000 ML IV ONE (08:00)
[2023-12-24 08:15] LABS: Glucose,Whole Blood 101 mg/dL (70-110)
[2023-12-24] MEDS ORDERED: fentaNYL (PF) 50 MCG/ML 2 ML AMP ONE (08:24)
[2023-12-24] MEDS ORDERED: MIDAZOLAM 2 MG/2 ML VIAL ONE (08:24)
[2023-12-24 08:28] VITALS: TEMP 96.8
[2023-12-24] MEDS ORDERED: ROPIVACAINE 5MG/ML 20ML VIAL ONE (08:29)
--- NOTE | 2023-12-24 08:42 | P.PCN ---
Date of Procedure: 12/24/23 Surgeon: Lisa Olivas Pathology: none sent Condition: stable Disposition: PACU Description of Procedure: PREOPERATIVE DIAGNOSIS : 1- Lumbar spondylosis with Facet Arthropathy without myelopathy . 2- Lumber degenerative disc disease POSTOPERATIVE DIAGNOSIS: 1- Lumbar spondylosis with Facet Arthropathy without myelopathy . 2- Lumber degenerative disc disease PROCEDURE: Diagnostic bilateral L4 -5 , and L5-S1 medial branch block under fluoroscopy Physician: Lisa Olivas MD ANESTHESIA: Local with 1% lidocaine;and IV moderate conscious sedation by the anesthesia department EBL: Negligible COMPLICATION: None. PROCEDURE INDICATION: Chronic low back pain secondary to Facet arthropathy unresponsive to conservative treatment. PROCEDURE DESCRIPTION: the patient was seen and identified in the preop holding area , risks and benefits and possible complications of the procedure and alternatives were discussed with the patient, and the patient agreed to proceed with the procedure and signed the consent. IV was started and vital signs monitored during the procedure and fluoroscopy was used to maximize the benefit and accuracy of the needle placement, sedation was given to decrease patient anxiety, patient was taken to the procedure room and placed in prone position vital signs monitored. The patient was brought into the procedure room and placed in prone position. Skin was prepped with Chloraprep and draped in a sterile manner. Lidocaine 1% was used to numb the skin up at the target points that were chosen as follows: at the L5-S1 level which corresponds to the dorsal ramus of L5 the target points were at the superior medial aspect of the sacral ala on each side of the spine on the AP view of fluoroscopy, and for the L3 and L4 medial branches the target points were the connection between the transverse process and the superior articular process of L4 and L5 respectively on the oblique views of fluoroscopy. I used 22-gauge 5 inch Quincke spinal needles for this procedure and after contacting bone at the target points mentioned above I injected 1 mL of Ropivacaine 0.5% PF in each needle . Patient tolerated procedure well. At the end of the procedure the needles removed and a bandage applied after the skin was cleaned the cleaning solution. patient was then taken to the recovery room in stable condition and monitored in the recovery room for 20-30 minutes and discharged home in stable condition after discharge criteria met . A copy of the needle placement picture was saved to the C-arm machine.
[2023-12-24] MEDS: IV FLUID CONTINUATION 1,000 ML IV ONE (08:45)
[2023-12-24] MEDS ORDERED: LACTATED RINGERS 1,000 ML IV SCH (08:48)
--- NOTE | 2023-12-24 08:54 | FL ---
EXAMINATION TYPE: FL guided pain mgmt statistic Intraoperative/procedural fluoroscopic services were provided. Total fluoroscopy time is 16.8 seconds with a total of 5 submitted images to PACS. Please s ee the operative/procedural note for further details. DAP: [id number] mGym2
[2023-12-24 08:59] LABS: Glucose,Whole Blood 112 mg/dL (70-110)
[2023-12-24 09:13] VITALS: BP 108/71; PULSE 87; RESP 16
== END 2023-12-24 09:12 | disposition home or self-care (01) ==
LOC: ORPAIN 07:42
PROVIDERS: ATTEND Anesthesiology
DX: M47.816 Spondylosis without myelopathy or radiculopathy, lumbar region (principal); G89.29 Other chronic pain; M51.36 Other intervertebral disc degeneration, lumbar region; F32.A Depression, unspecified; E66.01 Morbid (severe) obesity due to excess calories; K21.9 Gastro-esophageal reflux disease without esophagitis; F12.90 Cannabis use, unspecified, uncomplicated; F17.200 Nicotine dependence, unspecified, uncomplicated; Z79.1 Long term (current) use of non-steroidal anti-inflammatories (NSAID); Z79.899 Other long term (current) drug therapy; Z88.6 Allergy status to analgesic agent; Z68.43 Body mass index [BMI] 50.0-59.9, adult
CPT/HCPCS: 99152; 64494 ×2; 81025; 64493; J2250; J3010; J2795

== ENCOUNTER → 2024-02-28 | Outpatient (CLI) | payer OTHER ==
[2024-02-28 10:26] VITALS: BP 134/65; PULSE 91; RESP 16
--- NOTE | 2024-02-28 15:00 | P.PAINPG ---
PQRS Measure Charge Sheet Comment: A 43 yr old female with a history of severe and chronic LBP secondary to lumbar DDD and spondylosis with facet arthropathy without myelopathy, R Sacroiliitis presents today for evaluation s/p BL MBB L3-L5 #1. Pt states she experienced 80 % pain relief x 1 days s/p procedure. Pain level is provoked at 7 /10 in intensity, constant, localized in the lower lumbar spine, predominantly axial, achy in character w occasional shooting BL midline, L < R. Pain is provoked by standing/ walking for periods of 15 min or more. Pain is alleviated with PT x 6 wks in which ended in Sep 2023, chiropractic treatments semi monthly x 2 mo in Aug 2022, physician guided stretches 5 times daily since 2020, heat & ice, medications, topicals, sitting, repositioning and rest. Oswestry axial pain score of 22. Interventional pain procedures completed include R SI injection, BL TFESI L5-S1 x2, BL MBB L3-L5 x1 Patient is currently on Tyl, THC Gummies Patient denies any side effects of the medication(s), denies excessive drowsiness or sleepiness, denies suicidal ideation and reports that the current pain medication is helping to control the pain and improve activities of daily living. Patient denies any motor or sensory deficits. Patient denies any fever or night sweats, denies any change in the bowel movements or urination. Physical Examination: -Constitutional: Cooperative. Not in acute distress . - Neurologic: Cranial nerve II to XII intact. No focal neurological deficits. - Psychatric: Alert & oriented x 3. Matching mood & appropriate affect. Judgment and insight intact. - Musculoskeletal: Cervical spine: Muscle bulk/ tone/ strength in the bilateral upper extremities normal Vertebral body tenderness to palpation over Spurling test positive Distraction test positive Facet loading test positive TTP Thoracic spine Muscle bulk / tone/ strength in the bilateral paraspinal muscles normal Vertebral body tender to palpation over Facet loading test positive TTP Lumbar spine: Motor bulk/ tone/ strength lower extremities , thigh and legs : 5/5 Deep tendon reflexes : Normal Knee Jerk. Normal Ankle Jerk . Vertebral body tenderness to palpation Lumbar Facet Loading Test positive BL L4-L5, L5-S1 Straight Leg Raise: positive at 30 degrees right side/ left side Gaenslen's Test positive Sacral spine : Severe tenderness over the Sacroiliac joint: right side / left side Range of motion: Flexion of the lumbar spine <60 degrees Range of motion: Extension of the lumbar spine <20 degrees Gaenslen's Test positive right side / left side Herminio test: positive right side / left side Thigh Thrust Test positive right side / left side Sacral Thrust Test positive right side / left side Imaging: Lumbar x-ray from 06/14/23 reviewed MRI non-contrast of the lumbar spine from 10/19/23 reviewed Assessment and plan: Chronic LBP secondary to lumbar DDD, spondylosis with facet arthropathy without myelopathy, R Sacroiliitis Recommendation of BL MBB L4-L5, L5-S1 #2. May need a series of injections, up until RFA, for optimal pain relief. Risks, benefits of procedure discussed and patient verbalized understanding. Protocol for discontinuation/continuation of medications surrounding procedure discussed. Minimal anesthesia including Fentanyl and Versed if clinically indicated. All questions answered. I have spent less than 30 minutes on patient care today. Dr Padilla was available by phone for the evaluation of this patient. The time was used to review the medical records including relevant urine studies and Prescription history (MAPs), review of the available imaging, evaluation and examination of the patient, coordination of care with the medical staff and if applicable referring physicians, as well as creation of the medical record PQRS Narrative: Smoking Status Current every day smoker Hx Alcohol Use (MH) Yes Home Medications: Ambulatory Orders Famotidine [Pepcid] 40 mg PO QAM 10/11/19 Albuterol Inhaler [Ventolin Hfa Inhaler] 1 - 2 puff INHALATION RT-Q4H PRN 11/02/19 EPINEPHrine (Auto Inject) [Epipen] 0.3 mg IM ONCE PRN 11/02/19 Escitalopram [Lexapro] 20 mg PO QAM 08/27/21 Oxybutynin Xl [Ditropan XL] 10 mg PO DAILY 07/27/22 Acetaminophen Tab [Tylenol] 2 tab PO DIRECTED PRN 12/22/22 Cyclobenzaprine [Flexeril] 10 mg PO HS PRN 11/05/23 Semaglutide [Wegovy] 0.25 mg SQ MO 12/21/23 Unk Multi Vitamin 1 tab PO DAILY 12/21/23 Unk Probiotic 1 tab PO DAILY 12/21/23 Controlled Substance Measures - Controlled Substance Measures Is patient prescribed a controlled substance at discharge?: No
== END ==
LOC: PNWHC3 09:53
PROVIDERS: ATTEND Specialist
DX: M46.1 Sacroiliitis, not elsewhere classified (principal); M51.37 Other intervertebral disc degeneration, lumbosacral region; M47.817 Spondylosis without myelopathy or radiculopathy, lumbosacral region; F17.200 Nicotine dependence, unspecified, uncomplicated; Z88.6 Allergy status to analgesic agent
CPT/HCPCS: 99211

== ENCOUNTER 2024-03-24 07:32 | Day surgery (SDC) | payer OTHER ==
[2024-03-22 14:37] VITALS: BMI 52.7
[2024-03-24] MEDS: LACTATED RINGERS 1,000 ML IV SCH (08:05)
[2024-03-24 08:06] VITALS: TEMP 97.6
[2024-03-24 08:07] LABS: Glucose,Whole Blood 143 mg/dL (70-110)
[2024-03-24] MEDS ORDERED: MIDAZOLAM 2 MG/2 ML VIAL ONE (08:16)
[2024-03-24] MEDS ORDERED: ROPIVACAINE 5MG/ML 20ML VIAL ONE (08:16)
--- NOTE | 2024-03-24 08:32 | P.PCN ---
Date of Procedure: 03/24/24 Description of Procedure: Pre- and Post-operative Diagnosis: Lumbar facet arthropathy, and lumbar spon dylosis without myelopathy. Procedure: #2 Diagnostic Medial Branch Block at bilateral Lumbar 4/5 and #2 diagnostic dorsal ramus block at Lumbar 5/ sacral ala levels (total 4 levels) Surgeon: Bobbi Osborne Anesthesia: Local: 1% Lidocaine, IV sedation : Versed 2 mg Sedation supervision start time: 815 Sedation supervision ended time: 826 Complications: None EBL: None Specimen removed: None Fluoroscopic image: Saved to patient electronic medical records. Indications for Procedure: The patient is well known to pain clinic for his chronic low back pain management. The lumbar facet loading test was positive with a clinical diagnosis of lumbar facet arthropathy. Failed with conservative therapy. Patient had a great pain relief with the previous lumbar medial branch block. Came here for interventional help for better pain relief. Procedure and Findings: The patient was seen and examined. The written informed consent was obtained after explaining the risks, benefits and alternatives of the procedure to the patient. The patient was brought to the procedure room and was placed in the prone position on the operating table table. A pillow was placed under the abdomen to reduce lumbar lordosis. Standard anesthesia monitoring was done through out the procedure. The skin preparation was done with ChloraPrep X1, and draping was done in usual sterile fashion. Sterile technique was observed throughout the procedure. Under fluoroscopic guidance, right-sided the Lumbar 4, 5 and Sacral ala levels were identified in the AP view. For lumbar L4, and L5 levels the targeting area of superior articular process, and close to the most medial and superior aspect of transverse process identified, marked. 1ml of 1% Lidocaine was used with a 25 gauge needle to achieve adequate local anesthesia of the skin and subcutaneous tissue at each level. A 22 gauge 5 inch spinal needle was placed and advanced targeting area which was close to the most medial and superior aspect of the transverse process. For Lumbar 5/ sacral ala level, fluoroscope was used in the anteroposterior view, and the needle tip was placed at the superior and most medial part of sacral ala close to the superior articular process. A bony contact was obtained and needle tip position was confirmed at anteroposterior view. No paresthesia was noted. A negative aspiration was confirmed. 1 ml solution per level was injected, the block solution containing 6 ml of 0.5% ropivacaine preservative-free solution . The needles were removed intact. Entire procedure repeated on the left side. Lumbar area was cleaned and bandages were applied. preprocedure VAS: 9/10 Postprocedure VAS: 3/10 Disposition : The patient tolerated the procedure very well. The patient was transferred to the recovery room and remained stable until discharged home. The patient was given detailed discharge instructions for infection, bleeding, and increased pain at the injection site, and was advised to seek immediate medical attention should significant side effects develop. The patient will be scheduled with Pain Clinic within 4 weeks for lumbar radiofrequency ablation if it's helpfu
[2024-03-24] MEDS: IV FLUID CONTINUATION 700 ML IV ONE (08:36)
[2024-03-24 08:41] VITALS: RESP 16
[2024-03-24 08:55] VITALS: BP 107/74; PULSE 81
--- NOTE | 2024-03-24 10:20 | FL ---
EXAMINATION TYPE: FL guided pain mgmt statistic Intraoperative/procedural fluoroscopic services were provided. Total fluoroscopy time is 13.8 seconds with a total of 4 submitted images to PACS. Please s ee the operative/procedural note for further details. DAP: [id number] mGym2
== END 2024-03-24 09:05 | disposition home or self-care (01) ==
LOC: ORPAIN 07:32
DX: M47.816 Spondylosis without myelopathy or radiculopathy, lumbar region (principal); G89.29 Other chronic pain; Z88.6 Allergy status to analgesic agent
CPT/HCPCS: 81025; 64493; 64494 ×2; J2250; J2795

== ENCOUNTER → 2024-04-10 | Outpatient (CLI) | payer OTHER | LOC: PNWHC3 08:45 | PROVIDERS: ATTEND Specialist | DX: M47.816 Spondylosis without myelopathy or radiculopathy, lumbar region | CPT/HCPCS: 99211 ==

== ENCOUNTER 2024-04-25 07:50 | Day surgery (SDC) | payer OTHER ==
[2024-04-25] MEDS ORDERED: LACTATED RINGERS 1,000 ML BAG ONE (08:45)
[2024-04-25] MEDS ORDERED: fentaNYL (PF) 50 MCG/ML 2 ML AMP ONE (09:11)
[2024-04-25] MEDS ORDERED: MIDAZOLAM 2 MG/2 ML VIAL ONE (09:11)
[2024-04-25] MEDS ORDERED: ROPIVACAINE 5MG/ML 20ML VIAL ONE (09:11)
--- NOTE | 2024-06-06 18:20 | FL ---
EXAMINATION TYPE: FL guided pain mgmt statistic DATE OF EXAM: 05/09/2024 4:14 PM COMPARISON: Pre Operative Images if available both CT/MRI or plain film CLINICAL INDICATION: Female, 44 years old with history of AR LUM RFA; TECHNIQUE: FL guided pain mgmt statistic, multiple fluoroscopic images provided for procedure. Total fluoroscopy time: 19.7 seconds Total submitted images to PACS: 3 DAP: [id number] mGym2 Gycm2 uGym2 cGycm2 or equivalent. FINDINGS: Fluoroscopic images during injection for pain management demonstrate multilevel degeneration changes throughout the spine. No evidence for fracture. No acute process identified. IMPRESSION: 1. No evidence for intraoperative complication. 2. Please see the operative/procedural note for further details. [facility], , 06/06/2024 6:18 PM
== END 2024-04-25 10:10 ==
LOC: ORPAIN 07:50
PROVIDERS: ATTEND Hospitalist
DX: M47.816 Spondylosis without myelopathy or radiculopathy, lumbar region
CPT/HCPCS: 99152

== ENCOUNTER → 2024-05-17 | Outpatient (CLI) | payer OTHER ==
[2024-05-17 09:11] VITALS: BP 119/74; PULSE 91; RESP 20
--- NOTE | 2024-05-24 11:28 | P.PAINPG ---
PQRS Measure Charge Sheet Comment: A 43 yr old female with a history of severe and chronic LBP secondary to lumbar DDD and spondylosis with facet arthropathy without myelopathy, R Sacroiliitis presents today for evaluation s/p BL RFA L3-L5. Pt states she experienced 50 % pain relief s/p procedure. Pain level is provoked at 8 /10 in intensity, constant, localized in the lower lumbar spine, predominantly axial, achy in character w occasional shooting towards the R buttock. Pain is provoked by standing/ walking for periods >15 min. Pain is alleviated with PT x 6 wks in which ended in Sep 2023, chiropractic treatments semi monthly x 2 mo in Aug 2022, physician guided stretches 5 times daily since 2020, heat & ice, medications, topicals, sitting, repositioning and rest. Interventional pain procedures completed include R SI injection, BL TFESI L5-S1 x2, BL RFA L3-L5 (Apr 2024) Patient is currently on Tyl, THC Gummies Patient denies any side effects of the medication(s), denies excessive drowsiness or sleepiness, denies suicidal ideation and reports that the current pain medication is helping to control the pain and improve activities of daily living. Patient denies any motor or sensory deficits. Patient denies any fever or night sweats, denies any change in the bowel movements or urination. Physical Examination: -Constitutional: Cooperative. Not in acute distress . - Neurologic: Cranial nerve II to XII intact. No focal neurological deficits. - Psychatric: Alert & oriented x 3. Matching mood & appropriate affect. Judgme nt and insight intact. - Musculoskeletal: Cervical spine: Muscle bulk/ tone/ strength in the bilateral upper extremities normal Vertebral body tenderness to palpation over Spurling test positive Distraction test positive Facet loading test positive TTP Thoracic spine Muscle bulk / tone/ strength in the bilateral paraspinal muscles normal Vertebral body tender to palpation over Facet loading test positive TTP Lumbar spine: Motor bulk/ tone/ strength lower extremities , thigh and legs : 5/5 Deep tendon reflexes : Normal Knee Jerk. Normal Ankle Jerk . Vertebral body tenderness to palpation Lumbar Facet Loading Test positive BL L4-L5, L5-S1 Straight Leg Raise: positive at 30 degrees right side/ left side Gaenslen's Test positive Sacral spine : Severe tenderness over the Sacroiliac joint: right side / left side Range of motion: Flexion of the lumbar spine <60 degrees Range of motion: Extension of the lumbar spine <20 degrees Gaenslen's Test positive right side / left side Herminio test: positive right side / left side Thigh Thrust Test positive right side / left side Sacral Thrust Test positive right side / left side Imaging: Lumbar x-ray from 06/14/23 reviewed MRI non-contrast of the lumbar spine from 10/19/23 reviewed Assessment and plan: Chronic LBP secondary to lumbar DDD, spondylosis with facet arthropathy without myelopathy, R Sacroiliitis Recommendation of R SI injection #1. Risks, benefits of procedure discussed and patient verbalized understanding. Protocol for discontinuation/continuation of medications surrounding procedure discussed. All questions answered. I have spent less than 30 minutes on patient care today. Dr Padilla was available by phone for the evaluation of this patient. The time was used to review the medical records including relevant urine studies and Prescription history (MAPs), review of the available imaging, evaluation and examination of the patient, coordination of care with the medical staff and if applicable referring physicians, as well as creation of the medical record PQRS Narrative: Smoking Status Current every day smoker Hx Alcohol Use (MH) No Home Medications: Ambulatory Orders Famotidine [Pepcid] 40 mg PO QAM 10/11/19 Albuterol Inhaler [Ventolin Hfa Inhaler] 1 - 2 puff INHALATION RT-Q4H PRN 11/02/19 EPINEPHrine (Auto Inject) [Epipen] 0.3 mg IM ONCE PRN 11/02/19 Escitalopram [Lexapro] 20 mg PO QAM 08/27/21 Oxybutynin Xl [Ditropan XL] 10 mg PO DAILY 07/27/22 Acetaminophen Tab [Tylenol] 1,000 mg PO DIRECTED PRN 12/22/22 Cyclobenzaprine [Flexeril] 10 mg PO HS PRN 11/05/23 L.acidoph,Paracasei, B.lactis [Probiotic] 1 each PO DAILY 03/22/24 Multivitamins, Thera [Multivitamin (formulary)] 1 tab PO DAILY 03/22/24 Semaglutide [Wegovy] 0.5 mg SQ MO 03/22/24 Controlled Substance Measures - Controlled Substance Measures Is patient prescribed a controlled substance at discharge?: No
== END ==
LOC: PNWHC3 08:48
PROVIDERS: ATTEND Specialist
DX: M47.816 Spondylosis without myelopathy or radiculopathy, lumbar region
CPT/HCPCS: 99211